=== PATIENT | female | born 1945 | race Caucasian/White ===

== ENCOUNTER 2016-09-25 14:33 | Emergency (ER) | payer MEDICARE, OTHER | END 2016-09-25 18:15 | disposition home or self-care (01) | DX: R60.0 Localized edema (principal); R03.0 Elevated blood-pressure reading, without diagnosis of hypertension; Z86.718 Personal history of other venous thrombosis and embolism; Z79.01 Long term (current) use of anticoagulants; G62.9 Polyneuropathy, unspecified; M19.90 Unspecified osteoarthritis, unspecified site ==

== ENCOUNTER 2017-03-02 19:45 | Outpatient (CLI) | payer MEDICARE, OTHER ==
--- NOTE | 2017-03-03 09:31 | Ultrasound Report ---
RIGHT LEG VENOUS DUPLEX: 03/02/2017 CLINICAL INDICATION: Cellulitis, pain. TECHNIQUE: Real-time sonographic vascular imaging was performed by the network control supervisor through the right lower extremity utilizing both color flow and Doppler spectral analysis. Multiple insurance verification representative stat ic images were saved for review. FINDINGS: A right lower extremity venous sonogram is performed revealing the common femoral, superfic ial femoral, profunda femoris, and popliteal veins to be adequately visualized without intraluminal d efects. There is normal venous compression, augmentation, phasicity, and spontaneity of venous flow. In the calf, the visualized more cephalad portions of posterior tibial and peroneal veins are grossly compressible, without filling defects. Superficial varicosities are incidentally noted in the right calf. IMPRESSION: NO EVIDENCE OF DEEP VENOUS THROMBOSIS. JOB #: [id number] EXT JOB #:[id number]
--- NOTE | 2017-03-03 10:35 | Ultrasound Report ---
RIGHT LEG ARTERIAL DUPLEX: 03/02/2017 CLINICAL INDICATION: Cellulitis, ankle pain. TECHNIQUE: Real-time sonographic vascular imaging was performed by the torpedoman's mate through the lower extremities utilizing both color-flow and Doppler spectral analysis. Multiple guest services representative static images were saved for review. RIGHT SIDE SITE PSV WAVEFORM STEN PSFA 115 biphasic MSFA 125 triphasic DSFA 121 triphasic PFA 57 biphasic POP 57 monophasic KVNG 80 biphasic CAR RENTAL AGENT 54.9 monophasic PER 38 monophasic DPA 47 biphasic TECHNIQUE: Real-time scanning was performed. FINDINGS: Right leg: Waveforms are predominantly biphasic. Not documented above, the LOOP TACKER has a PSV of 147, and a biphasic waveform. There is no evidence of a focal velocity increase to suggest a hemodynamically significant stenosis. IMPRESSION: NO EVIDENCE OF A HEMODYNAMICALLY SIGNIFICANT ARTERIAL STENOSIS IN THE RIGHT LEG. MTDD
== END 2017-03-02 19:46 | disposition home or self-care (01) ==
LOC: DI 19:45
PROVIDERS: ATTEND Physician Assistant Medical
DX: L03.90 Cellulitis, unspecified (principal); M25.571 Pain in right ankle and joints of right foot

== ENCOUNTER 2017-06-23 12:10 | Outpatient (CLI) | payer MEDICARE, OTHER ==
--- NOTE | 2017-06-23 15:42 | XRAY Report ---
DATE OF SERVICE: 06/23/2017 TWO VIEW CHEST: 06/23/2017 COMPARISON: Two view chest of 10/17/2012. INDICATION: Preop exam. TECHNIQUE: Two views of the chest. FINDINGS: Clear lungs. No pneumothorax or pleural effusion. Mediastinum unremarkable. IMPRESSION: NO EVIDENCE OF ACTIVE CARDIOPULMONARY PROCESS. TD: 06/23/2017 16:41 [facility]
== END 2017-06-23 12:11 | disposition home or self-care (01) ==
LOC: DI 12:10
PROVIDERS: ATTEND Obstetrics & Gynecology
DX: Z01.818 Encounter for other preprocedural examination (principal); N81.4 Uterovaginal prolapse, unspecified; N81.6 Rectocele; Z86.711 Personal history of pulmonary embolism; Z86.718 Personal history of other venous thrombosis and embolism
CPT/HCPCS: 71046; 93005

== ENCOUNTER 2017-06-26 13:56 | Outpatient (CLI) | payer MEDICARE, OTHER ==
[2017-06-26 14:35] LABS: BASOPHILS # (AUTO) 0.1 10^3/uL (0.0-0.1); BASOPHILS % (AUTO) 0.9 %; EOSINOPHILS # (AUTO) 0.3 10^3/uL (0.0-0.7); EOSINOPHILS % (AUTO) 5.8 %; HGB - HEMOGLOBIN 10.8 g/dL (12.0-16.0); LYMPHOCYTES # (AUTO) 1.5 10^3/uL (1.5-3.5); LYMPHOCYTES % (AUTO) 26.9 %; MEAN CORPUSCULAR HEMOGLOBIN 28.7 pg (27.0-31.0); MEAN CORPUSCULAR VOLUME 84.4 fL (81.0-99.0); MEAN PLATELET VOLUME 7.3 fL (7.9-10.8); MONOCYTES # (AUTO) 0.6 10^3/uL (0.0-1.0); MONOCYTES % (AUTO) 10.9 %; NEUTROPHILS # (AUTO) 3.1 10^3/uL (1.5-6.6); NEUTROPHILS % (AUTO) 55.5 %; PLT - PLATELET COUNT 240 10^3/uL (130-450); RED BLOOD COUNT 3.78 10^6/uL (4.20-5.40); RED CELL DISTRIBUTION WIDTH 14.1 % (12.0-15.0); WHITE BLOOD COUNT 5.6 x10^3/uL (4.8-10.8)
[2017-06-26 14:54] LABS: ALBUMIN 3.9 g/dL (3.2-5.5); ALBUMIN/GLOBULIN RATIO 1.3 (1.0-2.2); BILIRUBIN,TOTAL 0.6 mg/dL (0.2-1.0); CALCIUM 9.2 mg/dL (8.5-10.3); CREATININE 1.1 mg/dL (0.4-1.0); TOTAL PROTEIN 6.8 g/dL (6.7-8.2)
--- NOTE | 2017-06-27 11:38 | PREOP HISTORY & PHYSICAL ---
DATE OF SERVICE: 06/26/2017 Physician: Grady Paige MD DATE OF ADMISSION: 06/26/2017 PATIENT IDENTIFICATION: Patient is a 71-year-old G1, P1 female who reached menopause at roughly 47 y ears of age. CHIEF COMPLAINT: Cystocele, rectocele. HISTORY OF PRESENT ILLNESS: Patient states in February of 2017, she developed bulging in the perine um following climbing a ladder. She states that the vagina feels as though it is coming out at that par ticular time. She does give a history of having mild stress urinary incontinence as well as doing some recta l splinting. She has been placed with a pessary and then followed this with inflatable. She has had g ood results from this; however, she is interested in having a cure for this problem. She does have a his tory of a DVT following knee surgery. This was a provocative factor. For this, she was placed on Xarelto. Sh e also complains of some venous stasis in the lower extremities and utilizes supportive hose. PAST SURGICAL HISTORY: Positive for an umbilical hernia repair. She also has a history of a knee replacement, carpal tunnel release, tonsillectomy and adenoidectomy, as well as hysteroscopy with dil atation and curettage and resection of cervical polyp. PAST MEDICAL HISTORY: Positive for a DVT following knee surgery. She also has a history of some hypertension, as well as GERD. CURRENT MEDICATIONS: 1. Folic acid. 2. Gabapentin. 3. Micardis HCT. 4. Ranitidine. 5. Topiramate. 6. Viibryd. 7. Vitamin D. 8. Xarelto. HABITS: Patient denies use of tobacco. Drinks maybe 1 alcoholic drink a day. Denies use of any str eet or addictive drugs. SOCIAL HISTORY: Patient is . She is retired at this time. FAMILY HISTORY: Positive for Alzheimer's disease, asthma, stomach cancer, diabetes, depression, hype rtension, as well as pancreatic CA. She denies any history of ovarian or endometrial cancer at this time. PHYSICAL EXAMINATION: VITAL SIGNS: Blood pressure 132/74. BMI 40. Weight 199.8. GENERAL: The patient is a well-developed, well-nourished white female. She is in no acute distress at this time. HEENT: Pupils are equal, round. Extraocular muscles are intact. There is no evidence of any sclera l icterus noted. HEART: Regular rate and rhythm without murmurs. CHEST: Lung pepe are clear without rales or wheezes. ABDOMEN: Shows repair of an umbilical hernia. PELVIC: Shows a grade 3-4 cystocele with also a large rectocele. The cervix descends easily. Inter nal examination was somewhat limited secondary to abdominal thickness; however, the uterus does not palpa te as being enlarged at this time. LOWER EXTREMITIES: Show evidence of some venous stasis in the right lower extremity. IMPRESSION: 1. Symptomatic cystocele. 2. Symptomatic rectocele. 3. Uterine prolapse. 4. Hypertension. 5. History of deep venous thrombosis with provocative cause. PLAN: We will perform laparoscopically-assisted vaginal hysterectomy with anterior and posterior rep air. Risks and benefits have been explained to the patient including those, but not limited to bleeding, i nfection, injury to pelvic organs, which include the uterus, tubes, ovaries, bowel, bladder and ureters. She i s aware of the potential for DVT. She has been told to hold her Xarelto because it is felt that her DVT was from provocative cause. She is aware of the postop adhesion which could cause pain, bowel obstruction, infertility. TD: 06/27/2017 12:37
== END 2017-06-26 13:57 | disposition home or self-care (01) ==
LOC: LAB 13:56
PROVIDERS: ATTEND Obstetrics & Gynecology
DX: N81.4 Uterovaginal prolapse, unspecified (principal); N81.10 Cystocele, unspecified; N81.6 Rectocele
CPT/HCPCS: 36415; 80053; 85025; 86850; 86900; 86901

== ENCOUNTER 2017-06-28 09:46 | Day surgery (SDC) | payer MEDICARE, OTHER ==
--- NOTE | 2017-06-27 11:38 | PREOP HISTORY & PHYSICAL ---
Physician: Grady Paige MD DATE OF PROCEDURE: 06/28/2017 IDENTIFICATION: Patient is a 71-year-old G1, P1 female who reached menopause at roughly 47 years of age. CHIEF COMPLAINT: Cystocele, rectocele. HISTORY OF PRESENT ILLNESS: Patient states in February of 2017, she developed bulging in the perineum following climbing a ladder. She states that the vagina feels as though it is coming out at that particular time. She does give a history of having mild stress urinary incontinence as well as doing some rectal splinting. She has been placed with a pessary and then followed this with inflatable. She has had good results from this; however, she is interested in having a cure for this problem. She does have a history of a DVT following knee surgery. This was a provocative factor. For this, she was placed on Xarelto. She also complains of some venous stasis in the lower extremities and utilizes supportive hose. PAST SURGICAL HISTORY: Positive for an umbilical hernia repair. She also has a history of a knee replacement, carpal tunnel release, tonsillectomy and adenoidectomy, as well as hysteroscopy with dilatation and curettage and resection of cervical polyp. PAST MEDICAL HISTORY: Positive for a DVT following knee surgery. She also has a history of some hypertension, as well as GERD. CURRENT MEDICATIONS 1. Folic acid. 2. Gabapentin. 3. Micardis HCT. 4. Ranitidine. 5. Topiramate. 6. Viibryd. 7. Vitamin D. 8. Xarelto. HABITS: Patient denies use of tobacco. Drinks maybe 1 alcoholic drink a day. Denies use of any street or addictive drugs. SOCIAL HISTORY: Patient is . She is retired at this time. FAMILY HISTORY: Positive for Alzheimer disease, asthma, stomach cancer, diabetes, depression, hypertension, as well as pancreatic CA. She denies any history of ovarian or endometrial cancer at this time. PHYSICAL EXAMINATION VITAL SIGNS: Blood pressure 132/74. BMI 40. Weight 199.8. GENERAL: The patient is a well-developed, well-nourished white female. She is in no acute distress at this time. HEENT: Pupils are equal, round. Extraocular muscles are intact. There is no evidence of any scleral icterus noted. HEART: Regular rate and rhythm without murmurs. CHEST: Lung pepe are clear without rales or wheezes. ABDOMEN: Exam shows repair of an umbilical hernia. PELVIC: Examination shows a grade 3-4 cystocele with also a large rectocele. The cervix descends easily. Internal examination was somewhat limited secondary to abdominal thickness; however, the uterus does not palpate as being enlarged at this time. EXTREMITIES: Lower extremities show evidence of some venous stasis in the right lower extremity. IMPRESSION 1. Symptomatic cystocele. 2. Symptomatic rectocele. 3. Uterine prolapse. 4. Hypertension. 5. History of deep venous thrombosis with provocative cause. PLAN: We will perform laparoscopically-assisted vaginal hysterectomy with anterior and posterior repair. Risks and benefits have been explained to the patient including those, but not limited to bleeding, infection, injury to pelvic organs, which include the uterus, tubes, ovaries, bowel, bladder and ureters. She is aware of the potential for DVT. She has been told to hold her Xarelto because it is felt that her DVT was from provocative cause. She is aware of the postop adhesion which could cause pain, bowel obstruction, infertility. date/acct correction 07/04/17 aleksandra TD: 06/27/2017 12:37 MARIAM
[2017-06-28] MEDS ORDERED: ceFAZolin 2 GM/50 ML 2 GM/50 ML BAG IV ONE (09:58)
[2017-06-28 09:59] VITALS: BP 130/67
[2017-06-28] MEDS ORDERED: LACTATED RINGERS 1,000 ML IV ONE ×3 (10:21→16:15)
[2017-06-28] MEDS ORDERED: BUPIVACAINE 0.25%-EPI 1:200000 PF 30 ML VIAL SUBQ ONE ×3 (13:05)
[2017-06-28] MEDS ORDERED: GLYCOPYRROLATE 1 MG/5 ML VIAL IVP ONE (13:51)
[2017-06-28] MEDS ORDERED: SODIUM CHLORIDE 0.9% 10 ML VIAL IV ONE (13:51)
[2017-06-28] MEDS ORDERED: fentaNYL 100 MCG/2 ML VIAL IVP ONE (13:51)
[2017-06-28] MEDS ORDERED: MIDAZOLAM 2 MG/2 ML VIAL IVP ONE (13:51)
[2017-06-28] MEDS ORDERED: ROCURONIUM 50 MG/5 ML VIAL IVP ONE (13:51)
[2017-06-28] MEDS ORDERED: NEOSTIGMINE 1 MG/1 ML 10 ML MDV IVP ONE (13:51)
[2017-06-28] MEDS ORDERED: ONDANSETRON 4 MG/2 ML VIAL IVP ONE (13:51)
[2017-06-28] MEDS ORDERED: PROPOFOL 200 MG/20 ML VIAL IVP ONE (13:51)
[2017-06-28] MEDS ORDERED: ACETAMINOPHEN 1,000 MG/100 ML 100 ML IV ONE (13:51)
[2017-06-28] MEDS ORDERED: ePHEDrine 50 MG/ML VIAL IVP ONE (13:51)
[2017-06-28] MEDS ORDERED: DEXAMETHASONE 4 MG/ML VIAL IVP ONE (13:51)
[2017-06-28] MEDS ORDERED: ESTROGENS, CONJUGATED CREAM 30 GM TUBE VG ONE (14:54)
[2017-06-28] MEDS ORDERED: METHYLENE BLUE 0.5% 50 MG/10 ML AMPULE IVP ONE (15:07)
[2017-06-28] MEDS: HYDROmorphone 1 MG/ML SYRINGE ONE ×3 (15:55→16:27)
[2017-06-28] MEDS ORDERED: ONDANSETRON 4 MG/2 ML VIAL ONE (15:57)
[2017-06-28] MEDS ORDERED: KETOROLAC 15 MG/ML VIAL ONE (15:57)
[2017-06-28] MEDS ORDERED: SODIUM CHLORIDE FLUSH 0.9% 10 ML SYRINGE IVP ONE (15:58)
[2017-06-28] MEDS ORDERED: fentaNYL 100 MCG/2 ML VIAL ONE (16:41)
[2017-06-28] MEDS ORDERED: ONDANSETRON 4 MG/2 ML VIAL IVP PRN (17:26)
[2017-06-28] MEDS: oxyCOD/ACETAMIN 5 MG/325 MG TABLET PO PRN ×2 (17:45→21:26)
[2017-06-28] MEDS: LACTATED RINGERS 1,000 ML IV SCH (23:45)
[2017-06-29] MEDS: oxyCOD/ACETAMIN 5 MG/325 MG TABLET PO PRN ×4 (01:42→16:09)
[2017-06-29] MEDS: LACTATED RINGERS 1,000 ML IV SCH (12:12)
== END 2017-06-29 17:10 | disposition home or self-care (01) ==
LOC: SDS 09:46 → OBS 15:40 → SDS 06-29 17:10
PROVIDERS: ATTEND Obstetrics & Gynecology
PROC: 0UT7FZZ Resection of Bilateral Fallopian Tubes, Via Natural or Artificial Opening With Percutaneous Endoscopic Assistance (ICD-10-PCS; 2017-06-28)
PROC: 0JQC0ZZ Repair Pelvic Region Subcutaneous Tissue and Fascia, Open Approach (ICD-10-PCS; 2017-06-28)
PROC: 0TQD7ZZ Repair Urethra, Via Natural or Artificial Opening (ICD-10-PCS; 2017-06-28)
PROC: 0UT9FZZ Resection of Uterus, Via Natural or Artificial Opening With Percutaneous Endoscopic Assistance (ICD-10-PCS; principal; 2017-06-28 12:00)
PROC: 0UT2FZZ Resection of Bilateral Ovaries, Via Natural or Artificial Opening With Percutaneous Endoscopic Assistance (ICD-10-PCS; 2017-06-28 12:00)
DX: N81.3 Complete uterovaginal prolapse (principal); N83.8 Other noninflammatory disorders of ovary, fallopian tube and broad ligament; Z86.718 Personal history of other venous thrombosis and embolism; Z79.01 Long term (current) use of anticoagulants; I10 Essential (primary) hypertension
CPT/HCPCS: 57260; 58552; A9270; J0131; J0690; J1170; J7120

== ENCOUNTER 2017-07-01 03:11 | Emergency (ER) | payer MEDICARE, OTHER ==
--- NOTE | 2017-07-01 03:37 | ED Physician Documentation ---
History of Present Illness - Stated complaint Stated Complaint: LEG SWELLING/POST OP - Chief complaint Chief Complaint: Ext Problem - History obtained from History obtained from: Patient - History of Present Illness Timing: Today - Additonal information Additional information: 71-year-old female has had hysterectomy done here next number of days ago and this morning she has developed fullness in her left calf and pain. She has had DVT postoperatively previously she is concerned about DVT again. She was on Xarelto prior to surgery she stopped it for the surgery and she took her first dose again this evening. She has had some LE erythema that has been present for about 9 months and this is improved dramatically from prior. She denies chest pain or shortness of breath. Review of Systems Constitutional: denies: Fever, Chills, Myalgias, Fatigue Eyes: denies: Decreased vision Ears: denies: Ear pain Nose: denies: Congestion Throat: denies: Sore throat Cardiac: denies: Chest pain / pressure, Palpitations Respiratory: denies: Dyspnea, Cough GI: denies: Abdominal Pain, Nausea, Vomiting : denies: Dysuria, Frequency Skin: denies: Rash Musculoskeletal: reports: Extremity pain, Extremity swelling. denies: Neck pain , Back pain Neurologic: denies: Generalized weakness, Focal weakness, Numbness PD PAST MEDICAL HISTORY - Past Medical History Past Medical History: Yes Cardiovascular: None, Hypertension, Deep vein thrombosis Respiratory: CPAP use Neuro: Peripheral neuropathy Endocrine/Autoimmune: None GI: None : Incontinence HEENT: None Psych: Depression Musculoskeletal: Osteoarthritis, Chronic back pain, Other Derm: None - Past Surgical History Past Surgical History: Yes General: Colonoscopy, Other Ortho: Knee replacement, Arthroscopic surgery /ACCOUNTS COLLECTOR: Tubal ligation, Hysterectomy Cardiovascular: CABG Neuro: Craniotomy HEENT: Tonsil/Adenoidectomy - Present Medications Home Medications: Ambulatory Orders Medication Instructions Recorded Confirmed Albuterol Sulfate [Proair Hfa] 1 - 2 puffs INH ONCE PRN 09/08/15 07/01/17 Folic Acid 0.8 mg PO DAILY 09/08/15 07/01/17 Gabapentin 1 - 2 tab PO BID 09/08/15 07/01/17 Rivaroxaban [Xarelto] 20 mg PO DAILY 09/08/15 07/01/17 Telmisartan/Hydrochlorothiazid 1 tab PO QDBREAKFAST 09/08/15 07/01/17 [Micardis Hct 80-25 mg Tablet] Topiramate 2 tab PO QPM 09/08/15 07/01/17 Vilazodone HCl [Viibryd] 40 mg PO DAILY 09/08/15 07/01/17 Vitamin D3/Folic Acid [Ortho D 1 each PO DAILY 05/17/16 07/01/17 3,775 Unit-1 mg Cap] Cinnamon Bark [Cinnamon] 500 mg PO DAILY 09/25/16 07/01/17 raNITIdine [Zantac] 150 mg PO DAILY 09/25/16 07/01/17 Rivaroxaban [Xarelto] 15 mg PO BID #42 tablet 07/01/17 oxyCODONE/ACET 5/325 Prepack 4 1 tab ORAL Q4HR 07/01/17 07/01/17 [PERCOCET 5 MG/325 MG Prepack 4] - Allergies Allergies/Adverse Reactions: Allergies Allergy/AdvReac Type Severity Reaction Status Date / Time codeine Allergy Unknown Verified 07/01/17 03:23 - Social History Does the pt smoke?: No Smoking Status: Never smoker Does the pt drink ETOH?: No Does the pt have substance abuse?: No - Immunizations Immunizations are current?: Yes PD ED PE NORMAL - Vitals Vital signs reviewed: Yes (normal ) - General General: Alert and oriented X 3, No acute distress, Well developed/nourished - HEENT HEENT: Atraumatic, PERRL, EOMI - Neck Neck: Supple, no meningeal sign - Cardiac Cardiac: RRR, No murmur - Respiratory Respiratory: No respiratory distress, Clear bilaterally - Abdomen Abdomen: Soft, Non tender - Derm Derm: Normal color, Warm and dry, No rash - Extremities Extremities: Other (There is firm swelling to the posterior calf. There is a well healed scar to the right knee and there is some post inflamitory hyperpigmentation to the calf about half way up the calf. ) - Neuro Neuro: No motor deficit, No sensory deficit Eye Opening: Spontaneous Motor: Obeys Commands Verbal: Oriented GCS Score: 15 - Psych Psych: Normal mood, Normal affect Results - Vitals Vitals: Vital Signs - 24 hr 07/01/17 07/01/17 03:16 06:17 Temperature 36.9 C 36.7 C Heart Rate 77 85 Respiratory 18 16 Rate Blood Pressure 128/77 114/66 O2 Saturation 99 96 Oxygen O2 Source Room air - Rads (name of study) duplex viens right Radiology: Prelim report reviewed (Impression: 1. Deep venous thrombosis in the popliteal vein. 2. Superficial venous thrombosis in the lesser saphenous vein.), EMP read indepedently, See rad report PD MEDICAL DECISION MAKING - ED course Complexity details: reviewed old records, reviewed results, re-evaluated patient , considered differential, d/w patient ED course: 71-year-old female with a history of prior DVT has had another surgical procedure and has DVT in the calf today. She has restarted her Xarelto last night and we will change her regimen to 15 mg twice daily for 3 weeks is recommended. She will then be back onto her 20 mg per day. There was a lymph node noted in the upper thigh that is likely unrelated and of insignificant consequence. Departure - Departure Disposition: 01 Home, Self Care Clinical Impression: DVT (deep venous thrombosis) Qualifiers: DVT location: lower extremity Affected thrombotic vein of extremity: popliteal Chronicity: acute Laterality: right Qualified Code(s): I82.431 - Acute embolism and thrombosis of right popliteal vein Condition: Stable Instructions: ED DVT Follow-Up: Beronica Alexandra PA-C [Primary Care Provider] - Grady Paige MD [Provider Admit Priv/Credential] - Prescriptions: Rivaroxaban [Xarelto] 15 mg PO BID #42 tablet
--- NOTE | 2017-07-01 06:07 | Ultrasound Report ---
EXAM: RIGHT LOWER EXTREMITY VENOUS ULTRASOUND EXAM DATE: 07/01/2017 05:37 AM. CLINICAL HISTORY: Calf pain fullness s/p surgery. COMPARISON: 03/02/2017. TECHNIQUE: Real-time sonographic vascular imaging was performed by the recycling worker through the lower extremity utilizing both color-flow and Doppler spectral analysis. Multiple visitor services representative static dane ges were saved for review. FINDINGS: Common Femoral Vein (CFV): Normal. CFV-GSV Junction: Normal. Profunda Femoral Vein (PFV): Normal. Femoral Vein (FV) Prox: Normal. Femoral Vein (FV) Mid: Normal. Femoral Vein (FV) Dist: Normal. Popliteal Vein: Thrombus. Posterior Tibial Veins: Suboptimally seen due to swelling. Peroneal Veins: Suboptimally seen due to swelling. Other: Superficial venous thrombosis in the lesser saphenous vein. IMPRESSION: 1. Deep venous thrombosis in the popliteal vein. 2. Superficial venous thrombosis in the lesser saphenous vein. [facility] The above critical findings were discussed with Dr. Dubose by Dr. Chinmay Quinones at 06:05 hrs on . Referring Provider Line: [phone] SITE ID: [id number]
[2017-07-01 06:19] VITALS: BP 114/66
== END 2017-07-01 06:21 | disposition home or self-care (01) ==
LOC: ED 03:11
DX: I82.431 Acute embolism and thrombosis of right popliteal vein (principal); I82.4Z1 Acute embolism and thrombosis of unspecified deep veins of right distal lower extremity; Z98.890 Other specified postprocedural states; I10 Essential (primary) hypertension; Z86.718 Personal history of other venous thrombosis and embolism; Z79.01 Long term (current) use of anticoagulants; G62.9 Polyneuropathy, unspecified; I25.10 Atherosclerotic heart disease of native coronary artery without angina pectoris; Z95.1 Presence of aortocoronary bypass graft; M19.90 Unspecified osteoarthritis, unspecified site
CPT/HCPCS: 99283; 99284

== ENCOUNTER 2017-10-27 15:07 | Emergency (ER) | payer MEDICARE, OTHER ==
[2017-10-27 15:14] VITALS: BP 132/67
--- NOTE | 2017-10-27 16:04 | ED Physician Documentation ---
History of Present Illness - Stated complaint Stated Complaint: R LEG PX - Chief complaint Chief Complaint: Ext Problem - Additonal information Additional information: hx from pt 72 f hx DVT several months ago on xarelto seeing derm for erythema to RLE - does not recall name of the skin condition - on exam today the drywall taper helper notes hard firm superficial veins to medial lower RLE and was concerned about a new DVT so sent pt to ER for doppler no CP or SOA Review of Systems Constitutional: denies: Fever, Chills Cardiac: denies: Chest pain / pressure Respiratory: denies: Dyspnea Musculoskeletal: reports: Extremity swelling Endocrine: reports: Easy bruising / bleeding Immunocompromised: denies: Immunocompromised PD PAST MEDICAL HISTORY - Past Medical History Cardiovascular: None, Hypertension, Deep vein thrombosis Respiratory: CPAP use Endocrine/Autoimmune: None GI: None : Incontinence HEENT: None Psych: Depression Musculoskeletal: Osteoarthritis, Chronic back pain, Other Derm: None - Past Surgical History Past Surgical History: Yes General: Colonoscopy, Other Ortho: Knee replacement, Arthroscopic surgery /[employer] 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: Tubal ligation, Hysterectomy Cardiovascular: CABG Neuro: Craniotomy HEENT: Tonsil/Adenoidectomy - Present Medications Home Medications: Ambulatory Orders Medication Instructions Recorded Confirmed Folic Acid 0.8 mg PO DAILY 09/08/15 07/01/17 Gabapentin 1 - 2 tab PO BID 09/08/15 07/01/17 Rivaroxaban [Xarelto] 20 mg PO DAILY 09/08/15 07/01/17 Telmisartan/Hydrochlorothiazid 1 tab PO QDBREAKFAST 09/08/15 07/01/17 [Micardis Hct 80-25 mg Tablet] Topiramate 2 tab PO QPM 09/08/15 07/01/17 Vilazodone HCl [Viibryd] 40 mg PO DAILY 09/08/15 07/01/17 Vitamin D3/Folic Acid [Ortho D 1 each PO DAILY 05/17/16 07/01/17 3,775 Unit-1 mg Cap] Cinnamon Bark [Cinnamon] 500 mg PO DAILY 09/25/16 07/01/17 raNITIdine [Zantac] 150 mg PO DAILY 09/25/16 07/01/17 Rivaroxaban [Xarelto] 15 mg PO BID #42 tablet 07/01/17 Loratadine [Claritin] 1 cap PO DAILY 10/27/17 10/27/17 - Allergies Allergies/Adverse Reactions: Allergies Allergy/AdvReac Type Severity Reaction Status Date / Time codeine Allergy Unknown Verified 10/27/17 15:14 - Social History Does the pt smoke?: No Smoking Status: Never smoker Does the pt drink ETOH?: No Does the pt have substance abuse?: No - Immunizations Immunizations are current?: Yes PD ED PE NORMAL - Vitals Vital signs reviewed: Yes - Cardiac Cardiac: RRR - Respiratory Respiratory: No respiratory distress, Clear bilaterally - Extremities Extremities: Other (RLE firm indurated superficial veins s erythema or warmth medial LE above ankle, MSV intact, no popliteal cord, no sig edema) Results - Vitals Vitals: Vital Signs - 24 hr 10/27/17 10/27/17 15:11 15:28 Temperature 36.7 C 36 C L Heart Rate 82 Respiratory 16 Rate Blood Pressure 132/67 H O2 Saturation 98 Oxygen O2 Source Room air - Rads (name of study) doppler Radiology: See rad report (no DVT or sup thrombophelbitis) Departure - Departure Disposition: 01 Home, Self Care Clinical Impression: History of DVT (deep vein thrombosis) Condition: Good Comments: The ultrasound was fine - no new clot Recommend warm compresses to the area and follow up with your drywall taper helper as planned
--- NOTE | 2017-10-27 17:31 | Ultrasound Preliminary Report ---
Exam: US DUPLEX EXT VEINS RIGHT IMPRESSION: No recurrent nor residual deep venous thrombosis nor superficial thrombophlebitis. [facility] SITE ID: [id number]
--- NOTE | 2017-10-27 17:39 | Ultrasound Report ---
EXAM: RIGHT LOWER EXTREMITY VENOUS ULTRASOUND EXAM DATE: 10/27/2017 05:06 PM. CLINICAL HISTORY: Follow up right leg deep venous thrombosis. Medial right calf edema and erythema. COMPARISON: 07/01/2017. TECHNIQUE: Real-time sonographic vascular imaging was performed by the specimen technician through the lower extremity utilizing both color-flow and Doppler spectral analysis. Multiple retail customer service representative static dane ges were saved for review. FINDINGS: Common Femoral Vein (CFV): Normal. CFV-GSV Junction: Normal. Profunda Femoral Vein (PFV): Normal. Femoral Vein (FV) Prox: Normal. Femoral Vein (FV) Mid: Normal. Femoral Vein (FV) Dist: Normal. Popliteal Vein: Normal. Interval resolution of thrombus. Posterior Tibial Veins: Normal. Peroneal Veins: Normal. Contralateral Side CFV: Normal. Other: Focused scans in the area of concern medial mid calf are normal. No superficial thrombophlebitis evident. IMPRESSION: No recurrent nor residual deep venous thrombosis nor superficial thrombophlebitis. [facility] Referring Provider Line: [phone] SITE ID: [id number]
== END 2017-10-27 18:04 | disposition home or self-care (01) ==
LOC: ED 15:07
DX: M79.604 Pain in right leg (principal); Z86.718 Personal history of other venous thrombosis and embolism; Z79.01 Long term (current) use of anticoagulants; I10 Essential (primary) hypertension; M19.90 Unspecified osteoarthritis, unspecified site; I25.10 Atherosclerotic heart disease of native coronary artery without angina pectoris; Z95.1 Presence of aortocoronary bypass graft
CPT/HCPCS: 99282

== ENCOUNTER 2018-04-17 21:56 | Outpatient (CLI) | payer MEDICARE, OTHER ==
--- NOTE | 2018-04-17 23:32 | Ultrasound Report ---
Reason: LEG EDEMA,RIGHT Procedure Date: 04/17/2018 Accession Number: [id number] / [id number] Procedure: US - Duplex Ext Veins Right CPT Code: FULL RESULT: EXAM: RIGHT LOWER EXTREMITY VENOUS ULTRASOUND EXAM DATE: 04/17/2018 10:50 PM. CLINICAL HISTORY: LEG Edema, right. COMPARISON: DUPLEX EXT VEINS RIGHT 10/27/2017 4:30 PM. TECHNIQUE: Real-time sonographic vascular imaging was performed by the slide fastener repairer through the lower extremity utilizing both color-flow and Doppler spectral analysis. Multiple communications representative static images were saved for review. FINDINGS: Common Femoral Vein (CFV): Normal. CFV-GSV Junction: Normal. Profunda Femoral Vein (PFV): Normal. Femoral Vein (FV) Prox: Normal. Femoral Vein (FV) Mid: Normal. Femoral Vein (FV) Dist: Normal. Popliteal Vein: Normal. Posterior Tibial Veins: Grossly unremarkable where seen, not well evaluated due to swelling and body habitus. Peroneal Veins: Grossly unremarkable where seen, not well evaluated due to swelling and body habitus. Other: None. IMPRESSION: No evidence for right leg deep venous thrombosis. [facility]
== END 2018-04-17 21:57 | disposition home or self-care (01) ==
LOC: DI 21:56
PROVIDERS: ATTEND Physician Assistant
DX: R60.0 Localized edema (principal)

== ENCOUNTER 2018-06-20 21:01 | Outpatient (CLI) | payer MEDICARE, OTHER ==
--- NOTE | 2018-06-20 21:36 | Ultrasound Report ---
Reason: NECK SWELLING Procedure Date: 06/20/2018 Accession Number: [id number] / [id number] Procedure: US - Head or Neck Soft Tissue CPT Code: FULL RESULT: EXAM: THYROID ULTRASOUND EXAM DATE: 06/20/2018 09:22 PM. CLINICAL HISTORY: NECK SWELLING. COMPARISON: None. TECHNIQUE: Real time sonographic imaging of the thyroid was performed by the railroad signal operator. Multiple client service representative static images were saved for review. FINDINGS: THYROID GLAND: Right Lobe: 3.2 x 1.5 x 1 cm, volume 2.5 cc. Normal background echotexture. Right Lobe Nodules: None. Left Lobe: 3.1 x 1.3 x 0.9 cm, volume 1.9 cc. Normal background echotexture. Left Lobe Nodules: None. Isthmus: 0.3 cm AP. Isthmic Nodules: None. LYMPH NODES: No adenopathy demonstrated in the central or lateral compartment. OTHER: None. IMPRESSION: Unremarkable thyroid ultrasound study. Management recommendations are based on 2015 [place] [employer] Management Guidelines for Adult Patients with Thyroid Nodules and Differentiated Thyroid Cancer. [facility]
== END 2018-06-20 21:02 | disposition home or self-care (01) ==
LOC: DI 21:01
PROVIDERS: ATTEND Family Medicine
DX: R22.1 Localized swelling, mass and lump, neck (principal)
CPT/HCPCS: 76536

== ENCOUNTER 2018-08-28 09:58 | Outpatient (CLI) | payer MEDICARE, OTHER ==
--- NOTE | 2018-08-28 12:13 | XRAY Report ---
Reason: FOOT PAIN, RIGHT Procedure Date: 08/28/2018 Accession Number: [id number] / [id number] Procedure: WCP - Foot 2 View RT CPT Code: FULL RESULT: EXAM: RIGHT FOOT RADIOGRAPHY EXAM DATE: 08/28/2018 10:12 AM. CLINICAL HISTORY: Foot pain, right. COMPARISON: None. TECHNIQUE: 3 views. FINDINGS: Bones: Normal. No fractures or bone lesions. Joints: Normal. No subluxations. Soft Tissues: Normal. No soft tissue swelling. IMPRESSION: Normal foot radiography. [facility]
== END 2018-08-28 09:59 | disposition home or self-care (01) ==
LOC: DI.WCP 09:58
PROVIDERS: ATTEND Family Medicine
DX: M79.671 Pain in right foot (principal)

== ENCOUNTER 2018-09-12 13:37 | Outpatient (CLI) | payer MEDICARE, OTHER ==
--- NOTE | 2018-09-12 15:47 | XRAY Report ---
Reason: ELBOW PAIN Procedure Date: 09/12/2018 Accession Number: [id number] / [id number] Procedure: WCP - Elbow 2 View LT CPT Code: FULL RESULT: EXAM: LEFT ELBOW RADIOGRAPHY EXAM DATE: 09/12/2018 01:50 PM. CLINICAL HISTORY: Elbow pain. COMPARISON: None. TECHNIQUE: 2 views. FINDINGS: Bones: Well-rounded ossific density along the lateral epicondyle, possibly remote trauma. No fractures or bone lesions. Joints: Normal. No effusion. No subluxation. Soft Tissues: Normal. No soft tissue swelling. IMPRESSION: No acute fracture or dislocation. [facility]
== END 2018-09-12 13:38 | disposition home or self-care (01) ==
LOC: DI.WCP 13:37
PROVIDERS: ATTEND Family Medicine
DX: M25.522 Pain in left elbow (principal)

== ENCOUNTER 2018-09-25 14:35 | Emergency (ER) | payer MEDICARE, OTHER ==
--- NOTE | 2018-09-25 14:52 | ED Physician Documentation ---
PD HPI NVD - Stated complaint Stated Complaint: DEHYDRATED - Chief complaint Chief Complaint: Abd Pain - History obtained from History obtained from: Patient - History of Present Illness Timing - onset: How many days ago (Onset 2-1/2 days ago abruptly of nausea and vomiting multiple times associated with some loose stool. She did not have any consistent abdominal pain. She states she is little bit sore in the upper abdomen with movement and that was after the onset of the vomiting. She did not have any spontaneous vomiting since yesterday but is still nauseous whenever she tries to even drink fluids. Her at home is not sick.) Timing - duration: Days (2 2) Timing - details: Abrupt onset, Still present Associated symptoms: Abdominal pain (upper on both sides), Dizzy (lightheaded). No: Fever, Hematemesis, Hematochezia, Near syncope / syncope Contributing factors: Sick contact, Anticoagulated Similar symptoms before: Has not had sx before Recently seen: Not recently seen Review of Systems Constitutional: reports: Myalgias. denies: Fever Nose: denies: Rhinorrhea / runny nose, Congestion Throat: denies: Sore throat Respiratory: denies: Cough GI: reports: Abdominal Pain, Nausea, Vomiting, Diarrhea. denies: Abdominal Swelling, Constipation : denies: Dysuria, Frequency Neurologic: reports: Generalized weakness. denies: Focal weakness, Numbness PD PAST MEDICAL HISTORY - Past Medical History Cardiovascular: None, Hypertension, Deep vein thrombosis Respiratory: CPAP use Endocrine/Autoimmune: None GI: None : Incontinence HEENT: None Psych: Depression Musculoskeletal: Osteoarthritis, Chronic back pain, Other Derm: None - Past Surgical History Past Surgical History: Yes General: Colonoscopy, Other Ortho: Knee replacement, Arthroscopic surgery /PLUSH FINISHER: Tubal ligation, Hysterectomy Cardiovascular: CABG Neuro: Craniotomy HEENT: Tonsil/Adenoidectomy - Present Medications Home Medications: Ambulatory Orders Medication Instructions Recorded Confirmed Folic Acid 0.8 mg PO DAILY 09/08/15 07/01/17 Gabapentin 1 - 2 tab PO BID 09/08/15 07/01/17 Rivaroxaban [Xarelto] 20 mg PO DAILY 09/08/15 07/01/17 Telmisartan/Hydrochlorothiazid 1 tab PO QDBREAKFAST 09/08/15 07/01/17 [Micardis Hct 80-25 mg Tablet] Topiramate 2 tab PO QPM 09/08/15 07/01/17 Vilazodone HCl [Viibryd] 40 mg PO DAILY 09/08/15 07/01/17 Vitamin D3/Folic Acid [Ortho D 1 each PO DAILY 05/17/16 07/01/17 3,775 Unit-1 mg Cap] Cinnamon Bark [Cinnamon] 500 mg PO DAILY 09/25/16 07/01/17 raNITIdine [Zantac] 150 mg PO DAILY 09/25/16 07/01/17 Rivaroxaban [Xarelto] 15 mg PO BID #42 tablet 07/01/17 Loratadine [Claritin] 1 cap PO DAILY 10/27/17 10/27/17 Diphenoxylate/Atropine [Lomotil] 1 each PO QID PRN #12 tablet 09/25/18 Ondansetron Odt [Zofran] 4 mg TL Q6H PRN #15 tablet 09/25/18 Potassium Chloride 10 meq PO DAILY #10 tablet.er 09/25/18 - Allergies Allergies/Adverse Reactions: Allergies Allergy/AdvReac Type Severity Reaction Status Date / Time codeine Allergy Unknown Verified 09/25/18 14:48 - Social History Does the pt smoke?: No Smoking Status: Never smoker Does the pt drink ETOH?: No Does the pt have substance abuse?: No - Immunizations Immunizations are current?: Yes PD ED PE NORMAL - Vitals Vital signs reviewed: Yes - General General: Alert and oriented X 3, Well developed/nourished - HEENT HEENT: Pharynx benign. No: Moist mucous membranes - Neck Neck: Supple, no meningeal sign, No adenopathy - Cardiac Cardiac: RRR, No murmur - Respiratory Respiratory: Clear bilaterally - Abdomen Abdomen: Soft, Non tender, Non distended. No: Normal bowel sounds (diminished) - Back Back: No CVA TTP - Derm Derm: Normal color, Warm and dry Results - Vitals Vitals: Vital Signs - 24 hr 09/25/18 09/25/18 14:44 16:04 Temperature 36.6 C Heart Rate 77 79 Respiratory 18 16 Rate Blood Pressure 150/90 H 139/68 H O2 Saturation 100 96 Oxygen O2 Source Room air - Labs Labs: Laboratory Tests 09/25/18 09/25/18 15:15 15:15 WBC 5.1 RBC 4.22 Hgb 11.4 L Hct 34.7 L MCV 82.2 MCH 27.1 MCHC 32.9 RDW 15.2 H Plt Count 230 MPV 7.9 Neut # (Auto) 3.8 Lymph # (Auto) 0.8 L [place] # (Auto) 0.4 Eos # (Auto) 0.1 Baso # (Auto) 0.0 Absolute Nucleated RBC 0.00 Nucleated RBC % 0.0 Sodium 132 L Potassium 2.8 L Chloride 98 L Carbon Dioxide 22 Anion Gap 12.0 BUN 21 H Creatinine 1.0 Estimated GFR (MDRD) 55 L Glucose 107 H Calcium 8.5 Magnesium 1.9 Total Bilirubin 0.6 AST 26 ALT 22 Alkaline Phosphatase 55 Total Protein 7.2 Albumin 3.7 Globulin 3.5 Albumin/Globulin Ratio 1.1 Lipase 27 PD MEDICAL DECISION MAKING - ED course Complexity details: considered differential (Sounds likely viral gastroenteritis versus food related. She does not have any persistent pain and there is no tenderness on abdominal exam so I do not feel she needs evaluation for focal infection such as appendix or gallbladder. We will give her IV fluids and antiemetics and H2 blockers. I think she needs rehydration and some medicatio n.), d/w family Departure - Departure Disposition: 01 Home, Self Care Clinical Impression: Dehydration, Hypokalemia, Nausea vomiting and diarrhea Condition: Stable Record reviewed to determine appropriate education?: Yes Instructions: Potassium Supplements, ED Nausea Vomiting Follow-Up: Rafael Marrero MD [Primary Care Provider] - Prescriptions: Diphenoxylate/Atropine [Lomotil] 1 each PO QID PRN #12 tablet PRN Reason: Diarrhea Ondansetron Odt [Zofran] 4 mg TL Q6H PRN #15 tablet PRN Reason: Nausea / Vomiting Potassium Chloride 10 meq PO DAILY #10 tablet.er Comments: I presume this was a viral stomach flu or potentially food related. Typically these just last for the couple of days and you may have prolonged symptoms due to the dehydration and low potassium. Hopefully will feel improved with the fluids and medicines here. Continue with ondansetron if needed for nausea and Lomotil just if needed for diarrhea. Small frequent fluids and bland food initially. Tylenol if needed for pains. Starting tomorrow or so if you are feeling better, add a potassium supplement daily for a week. Recheck if not improved well over the next day or two. Return if you have persistent symptoms, repetitive vomiting, areas of pain in the belly or other symptoms. Discharge Date/Time: 09/25/18 17:06
[2018-09-25] MEDS ORDERED: KETOROLAC 15 MG/ML VIAL IVP STA (15:03)
[2018-09-25] MEDS ORDERED: FAMOTIDINE 20 MG/2 ML VIAL IVP STA (15:03)
[2018-09-25] MEDS ORDERED: SODIUM CHLORIDE 0.9% 1,000 ML IV ONE (15:03)
[2018-09-25] MEDS ORDERED: ONDANSETRON 4 MG/2 ML VIAL IVP STA (15:03)
[2018-09-25 15:29] LABS: BASOPHILS % (AUTO) 0.2 %; EOSINOPHILS # (AUTO) 0.1 10^3/uL (0.0-0.7); HGB - HEMOGLOBIN 11.4 g/dL (12.0-16.0); LYMPHOCYTES # (AUTO) 0.8 10^3/uL (1.5-3.5); LYMPHOCYTES % (AUTO) 15.3 %; MEAN CORPUSCULAR HEMOGLOBIN 27.1 pg (27.0-31.0); MEAN CORPUSCULAR HGB CONC 32.9 g/dL (32.0-36.0); MEAN CORPUSCULAR VOLUME 82.2 fL (81.0-99.0); MEAN PLATELET VOLUME 7.9 fL (7.9-10.8); MONOCYTES # (AUTO) 0.4 10^3/uL (0.0-1.0); MONOCYTES % (AUTO) 8.5 %; NEUTROPHILS # (AUTO) 3.8 10^3/uL (1.5-6.6); PLT - PLATELET COUNT 230 10^3/uL (130-450); RED BLOOD COUNT 4.22 10^6/uL (4.20-5.40); RED CELL DISTRIBUTION WIDTH 15.2 % (12.0-15.0); WHITE BLOOD COUNT 5.1 x10^3/uL (4.8-10.8)
[2018-09-25 15:38] LABS: ALBUMIN 3.7 g/dL (3.2-5.5); ALBUMIN/GLOBULIN RATIO 1.1 (1.0-2.2); BILIRUBIN,TOTAL 0.6 mg/dL (0.2-1.0); CALCIUM 8.5 mg/dL (8.5-10.3); MAGNESIUM 1.9 mg/dL (1.7-2.8); TOTAL PROTEIN 7.2 g/dL (6.7-8.2)
[2018-09-25] MEDS ORDERED: POTASSIUM CHLOR 10 MEQ/100 ML 10 MEQ/100 ML BAG IV ONE (15:42)
[2018-09-25] MEDS ORDERED: POTASSIUM BICARB 25 MEQ TABLET PO STA (15:42)
[2018-09-25 16:05] VITALS: BP 139/68
== END 2018-09-25 17:06 | disposition home or self-care (01) ==
LOC: ED 14:35
DX: E86.0 Dehydration (principal); E87.6 Hypokalemia; R11.2 Nausea with vomiting, unspecified; R19.7 Diarrhea, unspecified; I10 Essential (primary) hypertension
CPT/HCPCS: 36415; 80053; 83690; 83735; 85025; 96361; 96365; 96375; 99283; 99284; A9270

== ENCOUNTER 2019-04-10 11:27 | Emergency (ER) | payer MEDICARE, OTHER ==
--- NOTE | 2019-04-10 12:11 | ED Physician Documentation ---
PD HPI LOWER EXT INJURY - Stated complaint Stated Complaint: R LEG PX/DVT RULE OUT - Chief complaint Chief Complaint: Ext Problem - History obtained from History obtained from: Patient - History of Present Illness PD HPI LOW EXT INJURY LOCATION: Right (73-year-old woman with history of DVTs on Xarelto for same. About a week ago her physical therapist who sees her for venous stasis noted a painful lump on the distal right calf. She tried to see her PCP for it but was referred here for an ultrasound as they had no openings. She has no chest pain or trouble breathing.) Review of Systems Constitutional: reports: Reviewed and negative Cardiac: reports: Reviewed and negative Respiratory: reports: Reviewed and negative PD PAST MEDICAL HISTORY - Past Medical History Cardiovascular: None, Hypertension, Deep vein thrombosis Respiratory: CPAP use Endocrine/Autoimmune: None GI: None : Incontinence HEENT: None Psych: Depression Musculoskeletal: Osteoarthritis, Chronic back pain, Other Derm: None - Past Surgical History Past Surgical History: Yes General: Colonoscopy, Other Ortho: Knee replacement, Arthroscopic surgery /LICENSE INSPECTOR: Tubal ligation, Hysterectomy Cardiovascular: CABG Neuro: Craniotomy HEENT: Tonsil/Adenoidectomy - Present Medications Home Medications: Ambulatory Orders Medication Instructions Recorded Confirmed Folic Acid 0.8 mg PO DAILY 09/08/15 07/01/17 Gabapentin 1 - 2 tab PO BID 09/08/15 07/01/17 Rivaroxaban [Xarelto] 20 mg PO DAILY 09/08/15 07/01/17 Telmisartan/Hydrochlorothiazid 1 tab PO QDBREAKFAST 09/08/15 07/01/17 [Micardis Hct 80-25 mg Tablet] Topiramate 2 tab PO QPM 09/08/15 07/01/17 Vilazodone HCl [Viibryd] 40 mg PO DAILY 09/08/15 07/01/17 Vitamin D3/Folic Acid [Ortho D 1 each PO DAILY 05/17/16 07/01/17 3,775 Unit-1 mg Cap] Cinnamon Bark [Cinnamon] 500 mg PO DAILY 09/25/16 07/01/17 raNITIdine [Zantac] 150 mg PO DAILY 09/25/16 07/01/17 Rivaroxaban [Xarelto] 15 mg PO BID #42 tablet 07/01/17 Loratadine [Claritin] 1 cap PO DAILY 10/27/17 10/27/17 Diphenoxylate/Atropine [Lomotil] 1 each PO QID PRN #12 tablet 09/25/18 Ondansetron Odt [Zofran] 4 mg TL Q6H PRN #15 tablet 09/25/18 Potassium Chloride 10 meq PO DAILY #10 tablet.er 09/25/18 - Allergies Allergies/Adverse Reactions: Allergies Allergy/AdvReac Type Severity Reaction Status Date / Time codeine Allergy Unknown Verified 04/10/19 11:55 - Social History Does the pt smoke?: No Smoking Status: Never smoker Does the pt drink ETOH?: No Does the pt have substance abuse?: No - Immunizations Immunizations are current?: Yes PD ED PE NORMAL - Vitals Vital signs reviewed: Yes - General General: Alert and oriented X 3, No acute distress - Extremities Extremities: Other (There is a little lump that is mildly tender, most consistent with a varicosity near the upper Achilles tendon on the right with some venous stasis changes but no overt calf tenderness.) - Neuro Neuro: Alert and oriented X 3, Normal speech Results - Vitals Vitals: Vital Signs - 24 hr 04/10/19 11:48 Temperature 36.8 C Heart Rate 82 Respiratory 17 Rate Blood Pressure 122/65 O2 Saturation 97 Oxygen O2 Source Room air - Rads (name of study) RLE sono Radiology: Final report received (no dvt) Departure - Departure Disposition: 01 Home, Self Care Clinical Impression: Leg edema, right, History of DVT (deep vein thrombosis) Condition: Good Record reviewed to determine appropriate education?: Yes Comments: No evidence of blood clot on today's exam. Follow-up with your doctor next week for recheck. Continue current medications. Return for new or worsening symptoms.
--- NOTE | 2019-04-10 15:06 | Ultrasound Report ---
Reason: rle pain Procedure Date: 04/10/2019 Accession Number: [id number] / [id number] Procedure: US - Duplex Ext Veins Right CPT Code: FULL RESULT: EXAM: RIGHT LOWER EXTREMITY VENOUS ULTRASOUND EXAM DATE: 04/10/2019 02:40 PM. CLINICAL HISTORY: Rle pain. COMPARISON: DUPLEX EXT VEINS RIGHT 04/17/2018 10:50 PM. TECHNIQUE: Real-time sonographic vascular imaging was performed by the peer financial counselor through the lower extremity utilizing both color-flow and Doppler spectral analysis. Multiple member services representative static images were saved for review. FINDINGS: Common Femoral Vein (CFV): Normal. CFV-GSV Junction: Normal. Profunda Femoral Vein (PFV): Normal. Femoral Vein (FV) Prox: Normal. Femoral Vein (FV) Mid: Normal. Femoral Vein (FV) Dist: Normal. Popliteal Vein: Normal. Posterior Tibial Veins: Normal. Peroneal Veins: Normal. Other: Calf veins not well seen. There is calf edema. IMPRESSION: No evidence for deep venous thrombosis. RADIA
[2019-04-10 16:24] VITALS: BP 134/72
== END 2019-04-10 15:01 | disposition home or self-care (01) ==
LOC: ED 11:27
DX: M79.661 Pain in right lower leg (principal); R60.0 Localized edema; Z86.718 Personal history of other venous thrombosis and embolism; Z79.01 Long term (current) use of anticoagulants; I87.8 Other specified disorders of veins; I10 Essential (primary) hypertension
CPT/HCPCS: 99283; 99284

== ENCOUNTER 2019-05-08 09:15 | Outpatient (CLI) | payer MEDICARE, OTHER ==
--- NOTE | 2019-05-09 09:24 | DEXA Report ---
Reason: BONE DISORDER Procedure Date: 05/08/2019 Accession Number: [id number] / [id number] Procedure: DEX - Dexa Spine and/or Hip CPT Code: Final Report FULL RESULT: EXAM: Dexa Spine and/or Hip DATE: 05/08/2019 9:55 AM CLINICAL HISTORY: BONE DISORDER TECHNIQUE: Dual energy x-ray absorptiometry (DXA) was performed on a [employer] System. Regions measured are the AP Spine, femoral neck, and if needed forearm. COMPARISON: None. In accordance with the International Society for Clinical Densitometry (ISCD) guidelines, data from previous exams may be reanalyzed using current recommendations and techniques. This is done to allow a more accurate basis for comparison with the current study. FINDINGS: The data for the lumbar spine is as follows: BMD (g/cm/cm) T-SCORE Z-SCORE REGION L1 1.097 -0.3 0.6 L2 1.067 -1.1 -0.2 L3 1.173 -0.2 0.7 L4 1.259 0.5 1.4 TOTAL 1.158 -0.2 0.7 NOTE: All evaluable vertebrae are used for classification The data for the hip is as follows: BMD (g/cm/cm) T-SCORE Z-SCORE REGION Neck 0.794 -1.8 -0.5 TOTAL 0.916 -0.7 0.2 NOTE: The femoral neck or total proximal femur, whichever is lowest, is used for classification. IMPRESSION: THE WHO CLASSIFICATION BASED ON THE INTERNATIONAL REFERENCE STANDARD IS OSTEOPENIA. THE FRACTURE RISK IS INCREASED. RECOMMENDATION: Patients with diagnosis of osteoporosis or osteopenia should have regular bone mineral density assessment. For those eligible for Medicare, routine testing is allowed once every 2 years. Testing frequency can be increased for patients who have rapidly progressing disease or for those who are receiving medical therapy to restore bone mass. COMMENT: World Health Organization (WHO) definitions for osteoporosis and osteopenia: NORMAL BMD: T-score at -1.0 or higher, fracture risk is low OSTEOPENIA BMD: T-score between -1.0 and -2.5, fracture risk is increased. OSTEOPOROSIS BMD: T-score at -2.5 or lower, fracture risk is high. National Osteoporosis Foundation recommends: 1. Obtain adequate dietary calcium (at least 1200 mg per day) and vitamin D (400-800 international units per day). 2. Participate, as appropriate, in regular weightbearing and muscle-strengthening exercise. 3. Avoid tobacco use and reduce alcohol and caffeine intake. 4. For more detailed information see the website at www.NOF.org.
== END 2019-05-08 09:16 | disposition home or self-care (01) ==
LOC: DI 09:15
PROVIDERS: ATTEND Family Medicine
DX: M85.88 Other specified disorders of bone density and structure, other site (principal)
CPT/HCPCS: 77080

== ENCOUNTER 2020-01-10 07:00 | Outpatient (CLI) | payer MEDICARE, OTHER | END 2020-01-10 23:59 | disposition home or self-care (01) | LOC: LAB.R 07:00 | PROVIDERS: ATTEND Family Medicine | DX: D64.9 Anemia, unspecified (principal) | CPT/HCPCS: 82274 ==

== ENCOUNTER 2020-01-27 12:12 | Outpatient (CLI) | payer MEDICARE, OTHER ==
--- NOTE | 2020-01-27 16:19 | XRAY Report ---
PROCEDURE: Hip w/Pelvis 2-3V LT INDICATIONS: LEFT HIP PAIN TECHNIQUE: AP pelvis with lateral view(s) of the left hip(s). COMPARISON: None. FINDINGS: Bones: No fractures or dislocations. Pelvic ring appears intact. No suspicious bony lesions. Mild bilateral degenerative hip joint space narrowing. Small periarticular osteophytes are present. Degen erative changes are also noted within the lower lumbar spine. Soft tissues: The visualized bowel gas pattern is normal. No suspicious soft tissue calcifications. IMPRESSION: Mild bilateral posterior arthritis within the hips and lower lumbar spine. Reviewed by: Breana Calderon MD on 01/27/2020 4:18 PM PDT Approved by: Breana Calderon MD on 01/27/2020 4:18 PM PDT Station ID: [id number]
== END 2020-01-27 12:13 | disposition home or self-care (01) ==
LOC: DI 12:12
PROVIDERS: ATTEND Family Medicine
DX: M16.0 Bilateral primary osteoarthritis of hip (principal); M47.816 Spondylosis without myelopathy or radiculopathy, lumbar region

== ENCOUNTER 2020-03-12 12:35 | Day surgery (SDC) | payer MEDICARE, OTHER ==
[2020-03-12] MEDS ORDERED: LACTATED RINGERS 1,000 ML IV ONE ×2 (12:40→16:02)
[2020-03-12] MEDS ORDERED: MIDAZOLAM 2 MG/2 ML VIAL IVP ONE (16:02)
[2020-03-12] MEDS ORDERED: fentaNYL 250 MCG/5 ML VIAL IVP ONE (16:02)
[2020-03-12] MEDS ORDERED: NALOXONE 0.4 MG/ML VIAL IVP ONE (16:02)
[2020-03-12] MEDS ORDERED: FLUMAZENIL 0.1 MG/1 ML 5 ML MDV IVP ONE (16:02)
[2020-03-12 18:08] VITALS: BP 133/78
== END 2020-03-12 12:36 | disposition home or self-care (01) ==
LOC: SDS 12:35
PROVIDERS: ATTEND Surgery
DX: K57.30 Diverticulosis of large intestine without perforation or abscess without bleeding (principal); K64.4 Residual hemorrhoidal skin tags; K64.8 Other hemorrhoids; D64.9 Anemia, unspecified; Z80.0 Family history of malignant neoplasm of digestive organs; E03.9 Hypothyroidism, unspecified; K21.9 Gastro-esophageal reflux disease without esophagitis; G47.33 Obstructive sleep apnea (adult) (pediatric); I10 Essential (primary) hypertension; G62.9 Polyneuropathy, unspecified; Z86.718 Personal history of other venous thrombosis and embolism; Z79.01 Long term (current) use of anticoagulants
CPT/HCPCS: 45378; J3010; J7120

== ENCOUNTER 2021-07-08 09:17 | Outpatient (CLI) | payer MEDICARE, OTHER ==
--- NOTE | 2021-07-09 10:16 | XRAY Report ---
PROCEDURE: Foot 3 View RT INDICATIONS: RIGHT FOOT PAIN TECHNIQUE: 3 views of the foot were acquired. COMPARISON: None FINDINGS: Bones: No fractures or dislocations. No suspicious bony lesions. There is medial deviation of the second through fourth digits at the PIP joints most severe at the second and third digits. There is n o visualized fracture or dislocation. Scattered IP degenerative narrowing is present. Lucency is pres ent at the proximal fifth phalanx Soft tissues: No tibiotalar joint effusion. Achilles tendon appears normal. IMPRESSION: Medial angulation of the digits as described above. No visualized fracture. IP arthritic changes. Lucency at the proximal fifth phalanx is not seen on all views. This could represent arthritic subcho ndral cyst versus erosion. If there is concern for potential osteomyelitis within this region seconda ry to superficial infection, further evaluation is recommended. Reviewed by: Breana Calderon MD on 07/09/2021 10:14 AM PST Approved by: Breana Calderon MD on 07/09/2021 10:14 AM PST Station ID: [id number]
== END 2021-07-08 09:18 | disposition home or self-care (01) ==
LOC: DI.WOS 09:17
PROVIDERS: ATTEND Orthopaedic Surgery
DX: M20.40 Other hammer toe(s) (acquired), unspecified foot (principal); M19.071 Primary osteoarthritis, right ankle and foot

== ENCOUNTER 2021-08-31 14:00 | Outpatient (CLI) | payer MEDICARE, OTHER ==
--- NOTE | 2021-08-31 15:42 | XRAY Report ---
PROCEDURE: Chest 2 View X-Ray INDICATIONS: Right-sided chest pain TECHNIQUE: 2 view(s) of the chest. COMPARISON: None. FINDINGS: Surgical changes and devices: None. Lungs and pleura: No pleural effusions or pneumothorax. Lungs are clear. Mediastinum: Mediastinal contours are normal. Heart size is normal. Bones and chest wall: No suspicious bony abnormalities. Soft tissues appear unremarkable. IMPRESSION: No acute cardiopulmonary process demonstrated radiographically. Reviewed by: Rishi Mendez MD on 08/31/2021 3:40 PM PDT Approved by: Rishi Mendez MD on 08/31/2021 3:40 PM PDT Station ID: [id number]
== END 2021-08-31 14:01 | disposition home or self-care (01) ==
LOC: DI.N 14:00
PROVIDERS: ATTEND Family Medicine
DX: R07.89 Other chest pain (principal)

== ENCOUNTER 2021-09-01 11:19 | Emergency (ER) | payer MEDICARE, OTHER ==
--- NOTE | 2021-09-01 11:57 | XRAY Report ---
PROCEDURE: Chest 1 View X-Ray INDICATIONS: chest pain TECHNIQUE: One view of the chest was acquired. COMPARISON: August 31, 2021 FINDINGS: SUPPORT DEVICES: None. LUNGS/PLEURA: No focal consolidation, pleural effusion or space-occupying pneumothorax. MEDIASTINUM: The cardiac silhouette is within normal limits. Retrocardiac density, compatible with hi atal hernia. BONES/SOFT TISSUES: No acute abnormality. Elevation of the right diaphragm eventration. IMPRESSION: 1.No acute cardiopulmonary abnormality. Reviewed by: Alonso Rojas MD on 09/01/2021 11:56 AM PDT Approved by: Alonso Rojas MD on 09/01/2021 11:56 AM PDT Station ID: [id number]
[2021-09-01 11:59] LABS: BASOPHILS % (AUTO) 0.4 %; EOSINOPHILS # (AUTO) 0.3 10^3/uL (0.0-0.7); EOSINOPHILS % (AUTO) 5.9 %; HCT - HEMATOCRIT 36.5 % (37.0-47.0); HGB - HEMOGLOBIN 11.8 g/dL (12.0-16.0); LYMPHOCYTES # (AUTO) 1.2 10^3/uL (1.5-3.5); LYMPHOCYTES % (AUTO) 20.4 %; MEAN CORPUSCULAR HEMOGLOBIN 29.5 pg (27.0-31.0); MEAN CORPUSCULAR HGB CONC 32.3 g/dL (32.0-36.0); MEAN CORPUSCULAR VOLUME 91.3 fL (81.0-99.0); MEAN PLATELET VOLUME 9.3 fL (7.9-10.8); MONOCYTES # (AUTO) 0.4 10^3/uL (0.0-1.0); MONOCYTES % (AUTO) 7.1 %; NEUTROPHILS # (AUTO) 3.7 10^3/uL (1.5-6.6); NEUTROPHILS % (AUTO) 65.8 %; PLT - PLATELET COUNT 248 10^3/uL (130-450); RED CELL DISTRIBUTION WIDTH 13.5 % (12.0-15.0); WHITE BLOOD COUNT 5.6 x10^3/uL (4.8-10.8)
[2021-09-01 12:12] LABS: ALBUMIN 4.3 g/dL (3.2-5.5); ALBUMIN/GLOBULIN RATIO 1.4 (1.0-2.2); BILIRUBIN,TOTAL 0.6 mg/dL (0.2-1.0); CALCIUM 9.2 mg/dL (8.5-10.3); CREATININE 1.1 mg/dL (0.4-1.0); POTASSIUM 3.7 mmol/L (3.5-5.0); TOTAL PROTEIN 7.4 g/dL (6.7-8.2)
--- OUTSIDE RECORDS SUMMARY | 2021-09-01 12:24 | EXTERNAL MEDICAL SUMMARY RPT | Continuity of Care Document ---
:1945 Author Organization [facility] Address [address] [place] [address] Phone Care Team Providers Name Role Phone Samara Canchola Unavailable Unavailable Allergies No information. Encounters No information. Medications date description facility [id number] Bupropion Hydrochloride 100 MG Oral Tab [facility] [id number] Bupropion Hydrochloride 75 MG Oral [facility] Problems Procedures date description facility [id number] [facility] [id number] [facility] [id number] [facility] [id number] [facility] [id number] [facility] [id number] [facility] Results No information. Vital Signs date measurement value source [id number] weight_standard 198.99 lb [id number] weight_metric 90.26 kg [id number] heart_rate 66 /min [id number] BP_systolic 115 mm[Hg] [id number] BP_diastolic 72 mm[Hg]
--- NOTE | 2021-09-01 12:35 | ED Physician Documentation ---
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 Episodic burning RUQ/Chest, sometimes to jaw and lasts 15 minutes and goes away. Happens about twice a month. Not exertional. No clear relation to eating. Has been going on for months. Had EKG and labs done in offie and note troponin of 40 (nl <16) and d-dimer 0.51 (nl <0.5, but age adjested is negative). She has been compliant with her Xarelto. Review of Systems Constitutional: denies: Fever, Chills Ears: reports: Reviewed and negative Nose: reports: Reviewed and negative Throat: reports: Reviewed and negative Respiratory: reports: Reviewed and negative GI: reports: Reviewed and negative PD PAST MEDICAL HISTORY - Past Medical History Past Medical History: Yes Cardiovascular: Hypertension, Deep vein thrombosis Respiratory: Sleep apnea, CPAP use Neuro: Headaches, Migraines, Peripheral neuropathy Endocrine/Autoimmune: None GI: GERD VISUAL INSPECTOR: None : None HEENT: None Psych: Depression, Anxiety Musculoskeletal: Osteoarthritis, Chronic back pain, Other Derm: Other - Past Surgical History Past Surgical History: Yes General: Colonoscopy, Other Ortho: Knee replacement, Arthroscopic surgery /VISUAL INSPECTOR: Tubal ligation, Hysterectomy Cardiovascular: CABG Neuro: Craniotomy HEENT: Tonsil/Adenoidectomy - Present Medications Home Medications: Ambulatory Orders Medication Instructions Recorded Confirmed Folic Acid 0.8 mg PO DAILY 09/08/15 09/01/21 Gabapentin 1 - 2 tab PO BID 09/08/15 09/01/21 Rivaroxaban [Xarelto] 20 mg PO DAILY 09/08/15 09/01/21 Telmisartan/Hydrochlorothiazid 1 tab PO QDBREAKFAST 09/08/15 09/01/21 [Micardis Hct 80-25 mg Tablet] Topiramate 2 tab PO QPM 09/08/15 09/01/21 Vilazodone HCl [Viibryd] 40 mg PO DAILY 09/08/15 09/01/21 Vitamin D3/Folic Acid [Ortho D 1 each PO DAILY 05/17/16 09/01/21 3,775 Unit-1 mg Cap] Cinnamon Bark [Cinnamon] 500 mg PO DAILY 09/25/16 09/01/21 raNITIdine [Zantac] 150 mg PO DAILY 09/25/16 09/01/21 Ferrous Gluconate [Iron] 1 tab PO DAILY 03/11/20 09/01/21 diphenhydrAMINE [Benadryl] 25 mg PO DAILY 03/11/20 09/01/21 Cyanocobalamin (Vitamin B-12) 2,500 mcg PO DAILY 09/01/21 09/01/21 [Vitamin B12] Famotidine [Pepcid] 20 mg PO BID 09/01/21 09/01/21 Fexofenadine [Joy] 180 mg PO DAILY 09/01/21 09/01/21 Melatonin 5 mg PO HS PRN 09/01/21 09/01/21 buPROPion [Wellbutrin Sr] 100 mg PO DAILY 09/01/21 09/01/21 - Allergies Allergies/Adverse Reactions: Allergies Allergy/AdvReac Type Severity Reaction Status Date / Time codeine Allergy Unknown Verified 09/01/21 11:29 - Social History Does the pt smoke?: No Smoking Status: Never smoker Does the pt drink ETOH?: No Does the pt have substance abuse?: No - Immunizations Immunizations are current?: Yes PD ED PE NORMAL - Vitals Vital signs reviewed: Yes - General General: Alert and oriented X 3, No acute distress - HEENT HEENT: PERRL, EOMI - Neck Neck: Supple, no meningeal sign, No bony TTP - Cardiac Cardiac: RRR, No murmur - Respiratory Respiratory: No respiratory distress, Clear bilaterally - Abdomen Abdomen: Normal bowel sounds, Soft, Non tender - Back Back: No CVA TTP - Extremities Extremities: Other (2+ symmetric pedal edema) - Neuro Neuro: Alert and oriented X 3, Normal speech Results - Vitals Vitals: Vital Signs - 24 hr 09/01/21 09/01/21 11:24 11:56 Temperature 36.4 C L Heart Rate 86 81 Respiratory 18 16 Rate Blood Pressure 126/63 113/68 O2 Saturation 100 98 Oxygen O2 Source Room air - Labs Labs: Laboratory Tests 09/01/21 09/01/21 09/01/21 11:50 11:50 11:50 WBC 5.6 RBC 4.00 L Hgb 11.8 L Hct 36.5 L MCV 91.3 MCH 29.5 MCHC 32.3 RDW 13.5 Plt Count 248 MPV 9.3 Neut # (Auto) 3.7 Lymph # (Auto) 1.2 L [place] # (Auto) 0.4 Eos # (Auto) 0.3 Baso # (Auto) 0.0 Absolute Nucleated RBC 0.00 Nucleated RBC % 0.0 Sodium 136 Potassium 3.7 Chloride 100 L Carbon Dioxide 24 Anion Gap 12.0 BUN 23 H Creatinine 1.1 H Estimated GFR (MDRD) 49 L Glucose 97 Calcium 9.2 Total Bilirubin 0.6 AST 15 ALT 17 Alkaline Phosphatase 53 Troponin I High Sens 6.0 Total Protein 7.4 Albumin 4.3 Globulin 3.1 Albumin/Globulin Ratio 1.4 Lipase 39 PD MEDICAL DECISION MAKING - ED course ED course: This is a 75-year-old woman who presents with subacute recurrent nonexertional and atypical chest pain in the setting of having outpatient labs done with a mildly positive troponin. This was repeated today and today is within the normal range. Explanations would include resolved anginal episode versus lab error. 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 As such we agreed that she could be discharged but I did notify Dr. Canchola that the patient probably needs a stress test and she will take a baby aspirin in the interim even noting that she is on Xarelto until that is complete. Departure - Departure Disposition: 01 Home, Self Care Clinical Impression: Atypical chest pain Condition: Good Record reviewed to determine appropriate education?: Yes Instructions: ED Chest Pain Atypical Unkn Cause Comments: Return if you feel ill or develop recurrent chest pain. Otherwise coordinate with Dr. Canchola's office, she will be ordering a stress test for you. Until that is complete with negative results please take a baby aspirin a day, continue your other medications including Xarelto.
[2021-09-01 12:59] VITALS: BP 117/68
== END 2021-09-01 13:03 | disposition home or self-care (01) ==
LOC: ED 11:19
DX: R07.89 Other chest pain (principal)
CPT/HCPCS: 36415; 80053; 83690; 84484; 85025; 93005; 99284

== ENCOUNTER 2021-09-16 09:49 | Outpatient (CLI) | payer MEDICARE, OTHER ==
--- NOTE | 2021-09-16 10:26 | CARDIAC PROCEDURE NOTE ---
Stress Test Report Service Date: 09/16/21 Service Time: 10:00 Ordering Provider: Samara Canchola DO Indication for Test: Assess chest discomfort. Significant Medical History: -Karmen is referred for stress myocardial perfusion imaging to assess for an ischemic contribution to intermittent episodes of right-sided chest discomfort. 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 She was seen by Dr. Canchola a couple of weeks ago and described occasional episodes of discomfort arising in the right upper quadrant area and radiating upward through her chest to her right jaw. The frequency of her episodes is variable, sometimes occurring every couple of weeks, but sometimes the interval between episodes is much longer. The episodes are generally random in onset and are not more likely to occur with exertion. When she experiences the discomfort the duration may be 3 to 5 minutes at most and stretching her upper torso and neck sometimes helps the discomfort to ease up. This is a different sensation than her GERD and it is not associated with diaphoresis or significant changes in breathing. -When seen in Dr. Canchola's office she reported an episode having occurred just prior and thus a troponin was drawn, returning elevated at 40 (normal <16) and she was thus referred to the [facility] Emergency Department, at which time (the next day) a repeat troponin was normal. She has some peripheral neuropathy and balance issues that limit the speed with which she can walk, however she continues walking her 14-year-old dog every day, though the latter is slowing down. She generally has to take her time with walks for other reasons. Cardiac Risk Factors: Positives include recent elevated troponin level, longstanding hypertension and known family history of ASCVD events (one brother with OK/stent in his late 70's, another brother with hx of CVA); she denies hyperlipidemia, diabetes and history of tobacco smoking. Type of Stress Test: ETT with Myocardial Perfusion Imaging Procedure: -Exercise Treadmill Test- After signing informed consent, the patient underwent resting SPECT imaging and then performed treadmill exercise using a Modified Gabriel protocol. The patient exercised for 8 minutes 27 seconds and achieved a peak heart rate of 135 (92 percent predicted maximum heart rate for age), and an estimated workload of 4.6 METS. The test was terminated due to leg fatigue and shortness of breath. Resting heart rate: 78 Peak heart rate: 135 Normal response to exercise. Resting BP: 121/81 Peak BP: 170/79 Normal resting BP with physiologic increase in systolic BP and normal decrease in diastolic BP with exercise. Rhythm during exercise: Sinus rhythm throughout with very rare PVCs. Symptoms: The patient denied experiencing any chest discomfort. EKG at rest showed normal sinus rhythm, normal in all aspects. EKG at peak stress showed no ischemia by EKG criteria. In Recovery heart rate and blood pressure rapidly and normally decreased to near baseline levels. Nuclear imaging was performed at rest and with stress and image interpretation will be reported separately. Enzo Alexander MD, was present throughout this treadmill stress study and supervised it in its entirety. Summary: 1) Exercise tolerance markedly above average for age as evidenced by HAI of - 55%. 2) Normal resting EKG. 3) Adequate level of exercise was achieved on this treadmill stress test. 4) Normal systolic BP response to exercise with modest but abnormal diastolic BP increase. 5) No ischemic changes by EKG criteria were seen at peak stress. 6) Analysis of gated nuclear images reveals normal left ventricular size and systolic function; SPECT analysis reveals a small, mostly fixed kendal-apical defect, most likely due to combination of apical thinning and attenuation artifact. See separate report for more detail. CONCLUSIONS: 1) Reassuringly low risk study, with no evidence of inducible ischemia by symptoms, EKG response or SPECT image analysis. 2) BP well controlled, given resting/exertional responses in spite of her not taking HCTZ and telmisartan for 24 hours.
--- NOTE | 2021-09-16 15:51 | Nuclear Medicine Report ---
PROCEDURE: Rest and exercise myocardial perfusion SPECT with gated imaging and ejection fraction INDICATIONS: CHEST PAIN /EXERCISE RADIOPHARMACEUTICAL: 14.1 mCi Tc-99m Myoview IV at rest and 40.7 mCi Tc-99m Myoview IV at peak exerc ise. [id number] was performed. TECHNIQUE: Radiopharmaceutical was injected at peak stress test, and also at rest. SPECT images wer e obtained. SPECT myocardial perfusion images were displayed in short axis, horizontal long axis, an d vertical long axis views. Gated images were reviewed using AutoQUANT software. COMPARISON: None available. FINDINGS: Raw data: There is good myocardial labeling by radiotracer. No significant motion artifacts. Lung- to-heart ratio is 0.34 (normal is less than 0.46 for tetrafosmin tracer). Left ventricle function: Gated images demonstrate normal left ventricle wall thickening. No segment al wall motion abnormality. No transient ischemic dilation; TID is 0.93 (normal less than 1.30). Th e left ventricle resting end-diastolic volume is 57 mL. Left ventricle stress ejection fraction is g reater than 70%; normal values are above 45%. Myocardial perfusion: There is a small, mild, primarily fixed perfusion defect in the apex, likely s econdary to the combination of apical thinning attenuation artifact. There is otherwise normal distri bution of activity in the left and right ventricular myocardium. No convincing perfusion defects to suggest myocardial ischemia or infarct. IMPRESSION: 1. Probably normal myocardial perfusion images. Fixed defect in the apex is most likely secondary to apical thinning and attenuation artifact. 2. Normal left ventricular volume and systolic function. 3. Please correlate with stress EKG result. PQRS ATTESTATIONS: Measure 322 - Is this imaging test primarily performed on a low-risk surgery patient for preoperative evaluation within 30 days preceding their low-risk non-cardiac surgery? Low-risk surgery is defined as cardiac or myocardial infarction less than 1%, including (but not limited to) endoscopic pr ocedures, superficial procedures, cataract surgery, and excisional breast surgery: Answer: No Measure 323 - Is this imaging test performed primarily for the monitoring of an asymptomatic patient who had percutaneous coronary intervention on the visit date or within 2 years of the visit date? An swer: No Measure 324 - Is this imaging test performed primarily for the initial detection and risk assessment on an asymptomatic, low coronary heart disease patient? Low CHD risk definition = clinicians should consider the maximum number of available patient factors used to estimate risk based on [place] (A TP III criteria), typically age, gender, diabetes, smoking status, and use of blood pressure medicati on, and integrate age appropriate estimates for missing elements, such as LDL or standard blood press ure. Answer: No Reviewed by: Peggy Gerardo MD on 09/16/2021 3:49 PM PDT Approved by: Peggy Gerardo MD on 09/16/2021 3:49 PM PDT Station ID: [id number]
== END 2021-09-16 09:50 | disposition home or self-care (01) ==
LOC: DI 09:49
PROVIDERS: ATTEND Family Medicine
DX: R07.9 Chest pain, unspecified (principal); E66.9 Obesity, unspecified; I10 Essential (primary) hypertension; R79.89 Other specified abnormal findings of blood chemistry; Z82.49 Family history of ischemic heart disease and other diseases of the circulatory system
CPT/HCPCS: 78452; 93016; 93017; 93018; A9500

== ENCOUNTER 2022-04-18 11:05 | Outpatient (CLI) | payer MEDICARE, OTHER ==
--- NOTE | 2022-04-19 11:15 | Mammography Report ---
BILATERAL DIGITAL SCREENING MAMMOGRAM 3D/2D: 04/18/2022 CLINICAL: Routine screening. Comparison is made to exams dated: 05/01/2019 mammogram and 03/30/2016 mammogram - [facility]. There are scattered areas of fibroglandular density in both breasts (category b / 25%-50% glandular t issue). No significant masses, calcifications, or other findings are seen in either breast. There has been no significant interval change. IMPRESSION: NEGATIVE There is no mammographic evidence of malignancy. A 1 year screening mammogram is recommended. Based on the Tyrer Cuzick model (a risk assessment model) the patients lifetime risk is 2.3% and her 10 year risk is 2.1%. According to the ACR, ACS, and NCCN guidelines, an annual breast MRI exam jewel g with mammogram is recommended if the patients lifetime risk is 20% or greater. This exam was interpreted at Station ID: [id number]. NOTE: For mammograms, a report in lay terms will be sent to the patient. Approximately 15% of breast malignancies will not be visualized mammographically. In the management of a palpable breast mass, a negative mammogram must not discourage biopsy of a clinically suspicious lesion. Electronically Signed By: David laguna/cameron:04/18/2022 14:49:16 ACR BI-RADS Category 1: Negative 3341F PARENCHYMAL PATTERN: (A) - The breast(s) demonstrate(s) scattered fibroglandular densities. BI-RADS CATEGORY: (1) - 1 RECOMMENDATION: (ANNUAL) - Recommend routine annual screening mammography. [id number] 1 year screening LATERALITY: (B)
== END 2022-04-18 11:06 | disposition home or self-care (01) ==
LOC: DI.N 11:05
PROVIDERS: ATTEND Physician Assistant
DX: Z12.31 Encounter for screening mammogram for malignant neoplasm of breast (principal)

== ENCOUNTER 2022-04-26 11:05 | Outpatient (CLI) | payer MEDICARE, OTHER ==
--- NOTE | 2022-04-26 17:36 | XRAY Report ---
PROCEDURE: Shoulder 3 View LT INDICATIONS: L SHOULDER PX TECHNIQUE: 3 views of the shoulder were acquired. COMPARISON: None. FINDINGS: Bones: No fractures or dislocations. Moderate acromioclavicular joint osteophytic changes are seen with joint space narrowing, subchondral sclerosis and marginal osteophyte formation. No suspicious sara ny lesions. Visualized ribs appear intact. Soft tissues: No suspicious soft tissue calcifications. IMPRESSION: Moderate left shoulder joint osteoarthritis. No fracture or dislocation. No gross soft t issue abnormalities. Reviewed by: Rylan Munoz MD on 04/26/2022 5:35 PM PST Approved by: Rylan Munoz MD on 04/26/2022 5:35 PM PST Station ID: [id number]
== END 2022-04-26 11:06 | disposition home or self-care (01) ==
LOC: DI.N 11:05
PROVIDERS: ATTEND Physician Assistant
DX: M19.012 Primary osteoarthritis, left shoulder (principal)

== ENCOUNTER 2022-07-14 09:39 | Emergency (ER) | payer MEDICARE, OTHER ==
[2022-07-14] MEDS ORDERED: ONDANSETRON ODT 4 MG TABLET TL STA (09:54)
[2022-07-14 10:08] LABS: BASOPHILS # (AUTO) 0.1 10^3/uL (0.0-0.1); BASOPHILS % (AUTO) 0.8 %; EOSINOPHILS # (AUTO) 0.1 10^3/uL (0.0-0.7); EOSINOPHILS % (AUTO) 2.1 %; HGB - HEMOGLOBIN 11.1 g/dL (12.0-16.0); LYMPHOCYTES # (AUTO) 1.1 10^3/uL (1.5-3.5); LYMPHOCYTES % (AUTO) 16.9 %; MEAN CORPUSCULAR HEMOGLOBIN 28.5 pg (27.0-31.0); MEAN CORPUSCULAR HGB CONC 31.7 g/dL (32.0-36.0); MEAN PLATELET VOLUME 9.5 fL (7.9-10.8); MONOCYTES # (AUTO) 0.5 10^3/uL (0.0-1.0); MONOCYTES % (AUTO) 7.5 %; NEUTROPHILS # (AUTO) 4.8 10^3/uL (1.5-6.6); NEUTROPHILS % (AUTO) 72.4 %; PLT - PLATELET COUNT 247 10^3/uL (130-450); RED BLOOD COUNT 3.89 10^6/uL (4.20-5.40); RED CELL DISTRIBUTION WIDTH 13.5 % (12.0-15.0); WHITE BLOOD COUNT 6.6 x10^3/uL (4.8-10.8)
[2022-07-14 10:19] LABS: ALBUMIN 3.9 g/dL (3.2-5.5); ALBUMIN/GLOBULIN RATIO 1.1 (1.0-2.2); BILIRUBIN,TOTAL 0.8 mg/dL (0.2-1.0); CALCIUM 9.5 mg/dL (8.5-10.3); CREATININE 1.3 mg/dL (0.4-1.0); POTASSIUM 3.9 mmol/L (3.5-5.0); TOTAL PROTEIN 7.4 g/dL (6.7-8.2)
--- OUTSIDE RECORDS SUMMARY | 2022-07-14 10:22 | EXTERNAL MEDICAL SUMMARY RPT | Continuity of Care Document ---
:1945 Author Organization [facility] Address [address] [place] [address] Phone Care Team Providers Name Role Phone Samara Canchola Unavailable Unavailable Allergies No information. Encounters No information. Functional Status No information. Immunizations No information. Medications date description facility 2022-04-18 00:00 [facility] Problems No information. Procedures No information. Results/Labs No information. Social History date description facility 2022-06-30 00:00 Never smoked tobacco ([facility] Vital Signs date measurement value units 2022-06-30 00:00 BMI 43.5 kg/m2 2022-06-30 00:00 BP_diastolic 63 mmHg 2022-06-30 00:00 BP_systolic 98 mmHg 2022-06-30 00:00 heart_rate 77 /min 2022-06-30 00:00 height_metric 144.78 cm 2022-06-30 00:00 height_standard 57 in 2022-06-30 00:00 o2_saturation 98 % 2022-06-30 00:00 weight_metric 91.28 kg 2022-06-30 00:00 weight_standard 201.24 lb
[2022-07-14 10:53] LABS: B. PARAPERTUSSIS- RESP PCR PAN NOT DETECTED; B. PERTUSSIS- RESP PCR PANEL NOT DETECTED; C. PNEUMONIAE- RESP PCR PANEL NOT DETECTED; CORONAVIRUS 229E-RESP PCR NOT DETECTED; CORONAVIRUS HKU1-RESP PCR NOT DETECTED; CORONAVIRUS NL63-RESP PCR NOT DETECTED; CORONAVIRUS OC43-RESP PCR NOT DETECTED; HUMAN METAPNEUMOVIRUS NOT DETECTED; INFLUENZA A- RESP PCR PANEL NOT DETECTED; INFLUENZA B - RESP PCR PANEL NOT DETECTED; M. PNEUMONIAE- RESP PCR PANEL NOT DETECTED; PARAINFLUENZA VIRUS 1 NOT DETECTED; PARAINFLUENZA VIRUS 2 NOT DETECTED; PARAINFLUENZA VIRUS 3 NOT DETECTED; PARAINFLUENZA VIRUS 4 NOT DETECTED; RHINOVIRUS/ENTEROVIRUS NOT DETECTED; RSV- RESP PCR PANEL NOT DETECTED; SARS-CoV-2 -RESP PCR PANEL NOT DETECTED
[2022-07-14] MEDS ORDERED: SODIUM CHLORIDE 0.9% 1,000 ML IV STA (11:55)
--- NOTE | 2022-07-14 11:59 | ED Physician Documentation ---
History of Present Illness - Stated complaint Stated Complaint: FALL,NAUSEA - Chief complaint Chief Complaint: General - History obtained from History obtained from: Patient, Family - Additonal information Additional information: The patient is brought to the emergency department by family for chief complaint of right buttock pain, nausea, hot and cold flashes, and fatigue for the last several days. The patient states that 5 days ago, she was standing on a stepladder when she went to step down and lost her balance, stumbling backward and crashing into a set of Particle board shelves attached to the wall. The patient states that she struck against the shelf with her right buttock and the shelf immediately broke. She states that she did not fall to the floor and did not hit her head. She has had a sore right buttock since. She also has noticed a big bruise and she is on Xarelto. The patient states that the next day, she began to notice a sense of hot and cold flashes with nausea. She has not had much of an appetite. She also states that she has not felt as though she could hold any fluid down and that she has had some dry heaves. The patient denies any respiratory symptoms. No dysuria. The patient has not had any known sick contacts. She states she is vaccinated for COVID. No other complaints at this time. Review of Systems Constitutional: reports: Reviewed and negative Eyes: reports: Reviewed and negative Ears: reports: Reviewed and negative Nose: reports: Reviewed and negative Throat: reports: Reviewed and negative Cardiac: reports: Reviewed and negative Respiratory: reports: Reviewed and negative GI: reports: Nausea : reports: Reviewed and negative Skin: reports: Reviewed and negative Musculoskeletal: reports: Reviewed and negative Neurologic: reports: Reviewed and negative Psychiatric: reports: Reviewed and negative Endocrine: reports: Reviewed and negative Immunocompromised: reports: Reviewed and negative PD PAST MEDICAL HISTORY - Past Medical History Past Medical History: Yes Cardiovascular: Hypertension, Deep vein thrombosis Respiratory: Sleep apnea, CPAP use Neuro: Headaches, Migraines, Peripheral neuropathy Endocrine/Autoimmune: None GI: GERD PSYCHIATRIC TECH: None : None HEENT: None Psych: Depression, Anxiety Musculoskeletal: Osteoarthritis, Chronic back pain, Other Derm: Other - Past Surgical History Past Surgical History: Yes General: Colonoscopy, Other Ortho: Knee replacement, Arthroscopic surgery /PSYCHIATRIC TECH: Tubal ligation, Hysterectomy Cardiovascular: CABG Neuro: Craniotomy HEENT: Tonsil/Adenoidectomy - Present Medications Home Medications: Ambulatory Orders Medication Instructions Recorded Confirmed Folic Acid 0.8 mg PO DAILY 09/08/15 07/14/22 Gabapentin 1 - 2 tab PO BID 09/08/15 07/14/22 Rivaroxaban [Xarelto] 20 mg PO DAILY 09/08/15 07/14/22 Telmisartan/Hydrochlorothiazid 1 tab PO QDBREAKFAST 09/08/15 07/14/22 [Micardis Hct 80-25 mg Tablet] Topiramate 2 tab PO QPM 09/08/15 07/14/22 Vilazodone HCl [Viibryd] 40 mg PO DAILY 09/08/15 07/14/22 Vitamin D3/Folic Acid [Ortho D 1 each PO DAILY 05/17/16 07/14/22 3,775 Unit-1 mg Cap] Cinnamon Bark [Cinnamon] 500 mg PO DAILY 09/25/16 07/14/22 raNITIdine [Zantac] 150 mg PO DAILY 09/25/16 07/14/22 Ferrous Gluconate [Iron] 1 tab PO DAILY 03/11/20 07/14/22 diphenhydrAMINE [Benadryl] 25 mg PO DAILY 03/11/20 07/14/22 Cyanocobalamin (Vitamin B-12) 2,500 mcg PO DAILY 09/01/21 07/14/22 [Vitamin B12] Famotidine [Pepcid] 20 mg PO BID 09/01/21 07/14/22 Fexofenadine [Joy] 180 mg PO DAILY 09/01/21 07/14/22 Melatonin 5 mg PO HS PRN 09/01/21 07/14/22 buPROPion [Wellbutrin Sr] 100 mg PO DAILY 09/01/21 07/14/22 Ondansetron Odt [Zofran] 4 mg TL Q6H PRN #10 tablet 07/14/22 - Allergies Allergies/Adverse Reactions: Allergies Allergy/AdvReac Type Severity Reaction Status Date / Time codeine Allergy Unknown Verified 07/14/22 09:47 - Social History Does the pt smoke?: No Smoking Status: Never smoker Does the pt drink ETOH?: No Does the pt have substance abuse?: No - Immunizations Immunizations are current?: Yes PD ED PE NORMAL - Vitals Vital signs reviewed: Yes - General General: Alert and oriented X 3, No acute distress, Well developed/nourished - HEENT HEENT: Atraumatic, PERRL, EOMI, Moist mucous membranes - Neck Neck: Supple, no meningeal sign - Cardiac Cardiac: RRR, No murmur, Strong equal pulses - Respiratory Respiratory: No respiratory distress, Clear bilaterally - Abdomen Abdomen: Soft, Non tender, Non distended - Back Back: No spinal TTP, Other (No tenderness over lumbosacral spine or coccyx. No deformity) - Derm Derm: Warm and dry, Other (Large contusion on the right buttock.) - Extremities Extremities: No deformity - Neuro Neuro: Alert and oriented X 3 - Psych Psych: Normal mood, Normal affect Results - Vitals Vitals: Vital Signs - 24 hr 07/14/22 07/14/22 07/14/22 09:43 11:47 14:00 Temperature 36.5 C Heart Rate 92 78 76 Respiratory 17 16 18 Rate Blood Pressure 156/89 H 123/75 113/59 L O2 Saturation 99 98 99 Oxygen O2 Source Room air - Labs Labs: Laboratory Tests 07/14/22 07/14/22 07/14/22 09:53 10:00 10:00 WBC 6.6 RBC 3.89 L Hgb 11.1 L Hct 35.0 L MCV 90.0 MCH 28.5 MCHC 31.7 L RDW 13.5 Plt Count 247 MPV 9.5 Neut # (Auto) 4.8 Lymph # (Auto) 1.1 L Greenlee # (Auto) 0.5 Eos # (Auto) 0.1 Baso # (Auto) 0.1 Absolute Nucleated RBC 0.00 Nucleated RBC % 0.0 Sodium 140 Potassium 3.9 Chloride 106 Carbon Dioxide 23 Anion Gap 11.0 BUN 24 H Creatinine 1.3 H Estimated GFR (MDRD) 40 L Glucose 112 H Calcium 9.5 Total Bilirubin 0.8 AST 15 ALT 14 Alkaline Phosphatase 63 Total Protein 7.4 Albumin 3.9 Globulin 3.5 Albumin/Globulin Ratio 1.1 Lipase 34 Nasal Adenovirus (PCR) NOT DETECTED Nasal B. parapertussis DNA (PCR) NOT DETECTED Nasal Coronavir 229E PCR NOT DETECTED Nasal Coronavir HKU1 PCR NOT DETECTED Nasal Coronavir NL63 PCR NOT DETECTED Nasal Coronavir OC43 PCR NOT DETECTED Nasal Enterovir/Rhinovir PCR NOT DETECTED Nasal Influenza B PCR NOT DETECTED Nasal Influenza A PCR NOT DETECTED Nasal Parainfluen 1 PCR NOT DETECTED Nasal Parainfluen 2 PCR NOT DETECTED Nasal Parainfluen 3 PCR NOT DETECTED Nasal Parainfluen 4 PCR NOT DETECTED Nasal RSV (PCR) NOT DETECTED Nasal B.pertussis DNA PCR NOT DETECTED Nasal C.pneumoniae (PCR) NOT DETECTED Mayank Human Metapneumo PCR NOT DETECTED Nasal M.pneumoniae (PCR) NOT DETECTED Nasal SARS-CoV-2 (PCR) NOT DETECTED PD Medical Decision Making - ED course Complexity details: reviewed results, re-evaluated patient, considered differential, d/w patient ED course: The patient was worked up with CBC, CMP, and a respiratory PCR, all of which were unremarkable. These were ordered and reviewed by me. The patient received IV fluids and Zofran and was found to be feeling much better. We have discussed that most likely, her nausea and chills have nothing to do with the fall from the ladder and the bruise on her buttock. It is most likely coincidental that she began to feel ill the day after she took the fall. We have discussed that she most likely has a viral illness which will subside on its, given a few days to a week or two. We have discussed symptomatic management at home as well as the usual indications for follow-up and return. Departure - Departure Disposition: 01 Home, Self Care Clinical Impression: Nausea, Viral syndrome Contusion, buttock Qualifiers: Encounter type: initial encounter Qualified Code(s): S30.0XXA - Contusion of lower back and pelvis, initial encounter Fall Qualifiers: Encounter type: initial encounter Qualified Code(s): W19.XXXA - Unspecified fall, initial encounter Condition: Stable Instructions: ED Viral Syndrome Prescriptions: Ondansetron Odt [Zofran] 4 mg TL Q6H PRN #10 tablet PRN Reason: Nausea / Vomiting Comments: Your labs look good. You do have a big bruise on your right buttock, but you do not have any tenderness over your spine, nor do you have any bruising overlying the spine. As far as your nausea and chills, the symptoms are unlikely to be related to your fall or your bruise. Most likely, you coincidentally picked up a viral infection around the time of your fall. You do not have any of the viruses that we can specifically test for, but there thousands of viruses in the environment that we cannot test for which cause very similar symptoms. You have been treated with IV fluids and nausea medicine today. A prescription for nausea medicine has been electronically transmitted to the [facility] pharmacy in [place] your request. Please pick this up and take the medications as needed. You should be sure to get plenty of clear liquids in small amounts, but frequently, is in every 15 to 20 minutes, in order to stay hydrated. Do not worry about trying to eat at this time. Take your nausea medicine 30 to 60 minutes prior to starting clear liquids, and then take just a few sips at a time. If this stays down, take another few sips and another 20 minutes or so. If you do well with this, you may gradually bring the sips closer together until you are able to tolerate clear liquids. If you are able to tolerate clear liquids for 24 hours, then you begin to take simple solids, such as Ramen noodles or saltine crackers. If you are not yet feeling ready for food, then y ou may wait until you are feeling ready, but whatever the case, do continue the clear liquids. You may follow-up with your primary doctor for further concerns. If you develop increasingly severe symptoms, you may return to the emergency department. Discharge Date/Time: 07/14/22 14:27
[2022-07-14] MEDS ORDERED: ONDANSETRON 4 MG/2 ML VIAL IVP STA (14:00)
[2022-07-14 14:14] VITALS: BP 113/59
== END 2022-07-14 14:27 | disposition home or self-care (01) ==
LOC: ED 09:39
DX: S30.0XXA Contusion of lower back and pelvis, initial encounter (principal); W11.XXXA Fall on and from ladder, initial encounter; W22.09XA Striking against other stationary object, initial encounter; Y92.009 Unspecified place in unspecified non-institutional (private) residence as the place of occurrence of the external cause; B34.9 Viral infection, unspecified; Z20.822 Contact with and (suspected) exposure to COVID-19
CPT/HCPCS: 36415; 80053; 83690; 85025; 87633; 96374; 99283; Q0162

== ENCOUNTER 2023-02-12 15:31 | Inpatient (IN) | payer MEDICARE, OTHER ==
--- OUTSIDE RECORDS SUMMARY | 2023-02-12 16:06 | EXTERNAL MEDICAL SUMMARY RPT | Continuity of Care Document ---
Author Name Unknown Address [address] [place] [address] Phone Organization [facility] Address [address] [place] [address] Phone Care Team Providers Care Behavioral Health Clinician Name Role Phone Samara Canchola Unavailable Unavailable Medications date description facility 2023-01-05 00:[address] [facility] Social History date description facility 2023-01-05 00:00 Never smoked tobacco ([facility]) [facility]
[2023-02-12 16:22] LABS: BASOPHILS % (AUTO) 0.5 %; EOSINOPHILS % (AUTO) 0.5 %; HCT - HEMATOCRIT 32.3 % (37.0-47.0); HGB - HEMOGLOBIN 11.1 g/dL (12.0-16.0); LYMPHOCYTES # (AUTO) 0.5 10^3/uL (1.5-3.5); LYMPHOCYTES % (AUTO) 9.6 %; MEAN CORPUSCULAR HEMOGLOBIN 28.8 pg (27.0-31.0); MEAN CORPUSCULAR HGB CONC 34.4 g/dL (32.0-36.0); MEAN CORPUSCULAR VOLUME 83.7 fL (81.0-99.0); MEAN PLATELET VOLUME 9.4 fL (7.9-10.8); MONOCYTES # (AUTO) 0.6 10^3/uL (0.0-1.0); MONOCYTES % (AUTO) 9.9 %; NEUTROPHILS # (AUTO) 4.5 10^3/uL (1.5-6.6); NEUTROPHILS % (AUTO) 79.3 %; PLT - PLATELET COUNT 229 10^3/uL (130-450); RED BLOOD COUNT 3.86 10^6/uL (4.20-5.40); RED CELL DISTRIBUTION WIDTH 12.5 % (12.0-15.0); WHITE BLOOD COUNT 5.7 x10^3/uL (4.8-10.8)
[2023-02-12 16:53] LABS: ALBUMIN 4.4 g/dL (3.2-5.5); ALBUMIN/GLOBULIN RATIO 1.5 (1.0-2.2); BILIRUBIN,TOTAL 0.7 mg/dL (0.2-1.0); CALCIUM 9.6 mg/dL (8.5-10.3); CREATININE 1.3 mg/dL (0.6-1.3); POTASSIUM 3.8 mmol/L (3.5-4.5); TOTAL PROTEIN 7.3 g/dL (6.4-8.9)
[2023-02-12] MEDS ORDERED: ONDANSETRON 4 MG/2 ML VIAL IVP STA ×2 (17:01→18:59)
[2023-02-12] MEDS ORDERED: SODIUM CHLORIDE 0.9% 1,000 ML IV STA (17:01)
--- NOTE | 2023-02-12 17:02 | ED Physician Documentation ---
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 She subsequently developed some abdominal pain but she thinks is just from the retching. She has had fairly normal but smaller bowel movements related to less oral intake and has not been able to keep down her meds. She has had headaches with this but she thinks it is from the dehydration. PD PAST MEDICAL HISTORY - Past Medical History Cardiovascular: Hypertension, Deep vein thrombosis Respiratory: Sleep apnea, CPAP use Neuro: Headaches, Migraines, Peripheral neuropathy Endocrine/Autoimmune: None GI: GERD OBSTETRICS GYNECOLOGY PHYSICIAN: None : None HEENT: None Psych: Depression, Anxiety Musculoskeletal: Osteoarthritis, Chronic back pain, Other Derm: Other - Past Surgical History Past Surgical History: Yes General: Colonoscopy, Other Ortho: Knee replacement, Arthroscopic surgery /OBSTETRICS GYNECOLOGY PHYSICIAN: Tubal ligation, Hysterectomy Cardiovascular: CABG Neuro: Craniotomy HEENT: Tonsil/Adenoidectomy - Present Medications Home Medications: Ambulatory Orders Medication Instructions Recorded Confirmed Folic Acid 0.8 mg PO DAILY 09/08/15 07/14/22 Gabapentin 1 - 2 tab PO BID 09/08/15 07/14/22 Rivaroxaban [Xarelto] 20 mg PO DAILY 09/08/15 07/14/22 Telmisartan/Hydrochlorothiazid 1 tab PO QDBREAKFAST 09/08/15 07/14/22 [Micardis Hct 80-25 mg Tablet] Topiramate 2 tab PO QPM 09/08/15 07/14/22 Vilazodone HCl [Viibryd] 40 mg PO DAILY 09/08/15 07/14/22 Vitamin D3/Folic Acid [Ortho D 1 each PO DAILY 05/17/16 07/14/22 3,775 Unit-1 mg Cap] Cinnamon Bark [Cinnamon] 500 mg PO DAILY 09/25/16 07/14/22 raNITIdine [Zantac] 150 mg PO DAILY 09/25/16 07/14/22 Ferrous Gluconate [Iron] 1 tab PO DAILY 03/11/20 07/14/22 diphenhydrAMINE [Benadryl] 25 mg PO DAILY 03/11/20 07/14/22 Cyanocobalamin (Vitamin B-12) 2,500 mcg PO DAILY 09/01/21 07/14/22 [Vitamin B12] Famotidine [Pepcid] 20 mg PO BID 09/01/21 07/14/22 Fexofenadine [Joy] 180 mg PO DAILY 09/01/21 07/14/22 Melatonin 5 mg PO HS PRN 09/01/21 07/14/22 buPROPion [Wellbutrin Sr] 100 mg PO DAILY 09/01/21 07/14/22 Ondansetron Odt [Zofran] 4 mg TL Q6H PRN #10 tablet 07/14/22 - Allergies Allergies/Adverse Reactions: Allergies Allergy/AdvReac Type Severity Reaction Status Date / Time codeine Allergy Unknown Verified 02/12/23 15:36 - Social History Does the pt smoke?: No Smoking Status: Never smoker Does the pt drink ETOH?: No Does the pt have substance abuse?: No Substance Use and Type: Other (Denies cannabis use.) - Immunizations Immunizations are current?: Yes PD ED PE NORMAL - Vitals Vital signs reviewed: Yes - General General: No acute distress, Other (Confused with repetitive questioning) - HEENT HEENT: PERRL, EOMI - Neck Neck: Supple, no meningeal sign, No bony TTP - Cardiac Cardiac: RRR, No murmur - Respiratory Respiratory: No respiratory distress, Clear bilaterally - Abdomen Abdomen: Other (Diminished but not absent bowel tones, no tenderness.) - Derm Derm: Normal color, Warm and dry - Neuro Neuro: Normal speech, Other (Confused with repetitive questioning) Eye Opening: Spontaneous Motor: Obeys Commands Verbal: Confused GCS Score: 14 Results - Vitals Vitals: Vital Signs - 24 hr 02/12/23 02/12/23 02/12/23 15:36 15:45 17:45 Temperature 36.8 C 36.8 C Heart Rate 79 79 80 Respiratory 18 18 18 Rate Blood Pressure 139/74 H 139/74 H 130/72 O2 Saturation 99 99 100 02/12/23 19:00 Temperature 36.7 C Heart Rate 82 Respiratory 16 Rate Blood Pressure 128/70 O2 Saturation 100 Oxygen O2 Source Room air - Labs Labs: Laboratory Tests 02/12/23 02/12/23 16:18 16:18 WBC 5.7 RBC 3.86 L Hgb 11.1 L Hct 32.3 L MCV 83.7 MCH 28.8 MCHC 34.4 RDW 12.5 Plt Count 229 MPV 9.4 Neut # (Auto) 4.5 Lymph # (Auto) 0.5 L Sawyer # (Auto) 0.6 Eos # (Auto) 0.0 Baso # (Auto) 0.0 Absolute Nucleated RBC 0.00 Nucleated RBC % 0.0 Sodium 124 L Potassium 3.8 Chloride 91 L Carbon Dioxide 22 Anion Gap 11.0 BUN 19 Creatinine 1.3 Estimated GFR (MDRD) 40 L Glucose 90 Calcium 9.6 Total Bilirubin 0.7 AST 21 ALT 11 Alkaline Phosphatase 68 Total Protein 7.3 Albumin 4.4 Globulin 2.9 Albumin/Globulin Ratio 1.5 Lipase 20 - Rads (name of study) CT head and abdomen/pelvis Relevant Findings:: Final report received, EMP independent interpretation of test PD Medical Decision Making - ED course ED course: 77-year-old presents with vomiting, mild confusion, she is accompanied by her son. Benign exam. CT of the head and abdomen pelvis done with hiatal hernia, moderate to large. Otherwise basically negative with incidental findings and negative head CT. Labs with mild anemia on CBC, significant hyponatremia on CMP new from prior. Presume this is the cause of her encephalopathy. Decision to admit made at 6:34 PM but waiting for telehealth shift change after 7. Case presented to Colette Mosquera, [facility] hospitalist at 7:15 PM. Departure - Departure Disposition: 66 [facility] DC/Xfer Clinical Impression: Vomiting, Hyponatremia Condition: Stable Forms: PCP List
[2023-02-12] MEDS ORDERED: iohexoL-300 100 ML VIAL IVP ONE (18:10)
--- NOTE | 2023-02-12 18:18 | CT Report ---
PROCEDURE: ABDOMEN/PELVIS W INDICATIONS: Vomiting. CONTRAST: 100mll omni 300 TECHNIQUE: After the administration of IV contrast, 5 mm thick sections acquired from the diaphragms to the symp hysis. 5 mm thick coronal and sagittal reformats were acquired. For radiation dose reduction, the f ollowing was used: automated exposure control, adjustment of mA and/or kV according to patient size. COMPARISON: None. FINDINGS: Image quality: Motion artifact is noted. Lung bases and heart: There is a moderate to large hiatal hernia. Liver: No solid mass. Simple appearing liver cysts are seen. Gallbladder and biliary tree: Layering gallstones versus sludge can be seen. No additional CT finding s of cholecystitis can be seen. Spleen: No splenomegaly. Pancreas: No pancreatic ductal dilation. Adrenals: No adrenal nodule. Kidneys and ureters: No hydronephrosis. No renal cystic lesion which requires follow up. No solid mas s. Bowel and peritoneum: No bowel distension. No pathologic free fluid. Distal colonic diverticulosis, w ithout rylan findings of active diverticulitis. The stomach is decompressed, which limits its evaluation. A normal appendix is incidentally noted. Lymph nodes: No central or retroperitoneal adenopathy. Vessels: No infrarenal aortic aneurysm. Atherosclerotic calcification is seen. PELVIS Reproductive organs: This patient is status post hysterectomy. No adnexal masses can be seen. Bladder: No abnormal wall thickening, accounting for underdistension. Pelvic lymph nodes: No pelvic adenopathy by size criteria. Bones: No aggressive osseous abnormality. Focal L5-S1 degenerative change is seen. Milder Other: No significant ventral or inguinal hernia. IMPRESSION: A moderate to large hiatal hernia is seen. No dilated loops of bowel can be seen. The stomach is decompressed. Normal appendix. Motion limited study. Additional findings: Simple liver cysts Layering gallstones versus sludge within the gallbladder Focal L5-S1 degenerative change Hysterectomy Reviewed by: Harvey Robins MD on 02/12/2023 5:16 PM BARRY Approved by: Harvey Robins MD on 02/12/2023 5:16 PM BARRY Station ID: [id number]
--- NOTE | 2023-02-12 18:19 | CT Report ---
PROCEDURE: HEAD WO INDICATIONS: TORRE TECHNIQUE: Noncontrast 4.5 mm thick angled axial sections acquired from the foramen magnum to the vertex. For r adiation dose reduction, the following was used: automated exposure control, adjustment of mA and/or kV according to patient size. COMPARISON: None. FINDINGS: Image quality: Excellent. CSF spaces: Basal cisterns are patent. No extra-axial fluid collections. Ventricles are normal in size and shape. Brain: No midline shift. No intracranial masses or hemorrhage. Corcoran-white matter interface is norm al. Age-appropriate brain parenchymal volume loss and chronic small vessel ischemic change can be se en. Skull and face: Calvarium and visualized facial bones are intact, without suspicious lesions. Hyper ostosis frontalis is incidentally noted, which is not frankly abnormal for a female patient of this a ge. Sinuses: Visualized sinuses and mastoids are clear. IMPRESSION: No significant intracranial abnormality is seen. Reviewed by: Harvey Robins MD on 02/12/2023 5:17 PM BARRY Approved by: Harvey Robins MD on 02/12/2023 5:17 PM AKDT Station ID: [id number]
[2023-02-12] MEDS ORDERED: KETOROLAC 15 MG/ML VIAL IVP STA (18:59)
--- NOTE | 2023-02-12 19:15 | HISTORY & PHYSICAL EXAMINATION ---
Chief Complaint - Chief Complaint Chief Complaint: Nausea/Vomiting History of Present Illness - Admitted From Admitted From:: ER - History Obtained From Records Reviewed: Yes History obtained from: Patient, staff, chart Exam Limitations: Virtual exam - History of Present Illness HPI Comment/Other: H&P was conducted via video remotely, using Access Cart. Patient is in [place]. Physician is in [place]. No one is at bedside. 77 yo F with PMH of CAD, HTN, DVT on lifelong AC, KONSTANTIN on CPAP, P Neuropathy, Migraine H/As, GERD, Depression/Anxiety and DJD presented to the ER with c/o of 2 day h/o N/V/D. Pt first started having loose stools on Monday, then she began to have Nausea/Vomiting. She has had about 3 loose stools/day, including with stool incontinence. She has had about 3 emeses/day since Monday. No black or bloody vomitus or stool. Pt says the vomiting was violent and had bile in it. No abdo pain. She has been unable to tolerate any PO since Monday and has not been able to keep down her prescription medications since Monday. She has also been unable to sleep x 2 nights. +urinary incontinence with vomiting. No dysuria/ hematuria/urinary urgency/frequency. No CP/SOB/cough. +subjective F/C. Pt does not have any known contacts with same symptoms. No recent unusual food or travel. She was last on Antibiotics about 1 month ago for a dental procedure. +generalized weakness and fatigue. +Headache today. Pt was confused on arrival to the ER per ER Provider. She is not confused now. In the ER, Hgb 11.1, Na 124, CR 1.3, U/A pending CT Head: neg CT Abdo: H. Hernia Pt was given IVF, Zofran in the ER. History - Past Medical History Cardiovascular: reports: Hypertension, Deep vein thrombosis Respiratory: reports: Sleep apnea, CPAP use Neuro: reports: Headaches, Migraines, Peripheral neuropathy Endocrine/Autoimmune: reports: None GI: reports: GERD GAS PROVER: reports: None : reports: None HEENT: reports: None Psych: reports: Depression, Anxiety Musculoskeletal: reports: Osteoarthritis, Chronic back pain, Other Derm: reports: Other MRSA Hx?: No - Past Surgical History General: reports: Colonoscopy, Other Ortho: reports: Knee replacement, Arthroscopic surgery /GAS PROVER: reports: Tubal ligation, Hysterectomy Cardiovascular: reports: CABG Neuro: reports: Craniotomy HEENT: reports: Tonsil/Adenoidectomy Meds/Allgy - Home Medications Home Medications: Ambulatory Orders Medication Instructions Recorded Confirmed Folic Acid 0.8 mg PO DAILY 09/08/15 07/14/22 Gabapentin 1 - 2 tab PO BID 09/08/15 07/14/22 Rivaroxaban [Xarelto] 20 mg PO DAILY 09/08/15 07/14/22 Topiramate 2 tab PO QPM 09/08/15 07/14/22 Vilazodone HCl [Viibryd] 40 mg PO DAILY 09/08/15 07/14/22 Vitamin D3/Folic Acid [Ortho D 1 each PO DAILY 05/17/16 07/14/22 3,775 Unit-1 mg Cap] Ferrous Gluconate [Iron] 1 tab PO DAILY 03/11/20 07/14/22 diphenhydrAMINE [Benadryl] 25 mg PO DAILY 03/11/20 07/14/22 Cyanocobalamin (Vitamin B-12) 2,500 mcg PO DAILY 09/01/21 07/14/22 [Vitamin B12] Famotidine [Pepcid] 20 mg PO BID 09/01/21 07/14/22 Melatonin 5 mg PO HS PRN 09/01/21 07/14/22 Telmisartan 80 mg PO DAILY 02/12/23 02/12/23 buPROPion HCL [Bupropion Xl] 300 mg PO DAILY 02/12/23 02/12/23 hydroCHLOROthiazide [Hydrodiuril] 25 mg PO DAILY 02/12/23 02/12/23 - Allergies Allergies/Adverse Reactions: Allergies Allergy/AdvReac Type Severity Reaction Status Date / Time codeine Allergy Unknown Verified 02/12/23 19:59 Review of Systems - All Other Systems All Other Systems: reports: Reviewed and negative Exam - Vital Signs Reviewed Vital Signs: Yes Vital Signs: Vital Signs x48h Temp Pulse Resp BP Pulse Ox 02/12/23 19:00 36.7 C 82 16 128/70 100 02/12/23 17:45 80 18 130/72 100 02/12/23 15:45 36.8 C 79 18 139/74 H 99 02/12/23 15:36 36.8 C 79 18 139/74 H 99 - Physical Exam General Appearance: positive: No acute distress, Alert Eyes Bilateral: positive: EOMI, No scleral icterus ENT: positive: Dry mucous membranes Respiratory: positive: Other (Access cart stethoscope not working; per ER Provider: CTA B/L) Cardiovascular: positive: Other (Access cart stethoscope not working; per ER Provider: RRR, no murmurs) Abdomen: positive: Other (per ER Provider: non-distended, NT, Soft) Extremities: positive: Full ROM, No pedal edema Neurologic/Psychiatric: positive: Oriented x3, CN's nml (2-12), Mood/affect nml Conclusion/Plan - Problem List (1) Hyponatremia Conclusion/Plan: Nausea/Vomiting/Diarrhea Hyponatremia MORGAN -pt was confused on arrival to ER per ER staff; now not confused -Na 124, CR 1.3, U/A pending -CT Head: neg -CT Abdo: H. Hernia -Pt was given IVF, Zofran in the ER. -admit to Med tele -continue IVF, anti-emetics -check stool studies -clear liquid diet; advance as tolerated -hold home medications: Telmisartan-HCTZ, Topamax -check BMPs q4 hr to ensure not correcting Na too quickly -avoid nephrotoxins Headache -most likely d/t Dehydration -Tylenol PRN Anemia, normocytic, chronic -Hgb 11.1; at baseline -continue home medications: iron, B12, Folate CAD HTN -hold home medications: Telmisartan-HCTZ d/t Hyponatremia -restart once symptoms resolved DVT on lifelong AC -continue home medications: Xarelto KONSTANTIN on CPAP -continue home CPAP P Neuropathy -hold home medications: Gabapentin d/t Nausea, Vomiting, Diarrhea -restart once symptoms resolved Migraine H/As -hold home medications: Topamax d/t Nausea, Diarrhea -restart once symptoms resolved GERD, -continue home medications: Pepcid Depression/Anxiety Insomnia -continue home medications: Buproprion, Vibryd VTE Prophylaxis: on Xarelto Code Status: D/W pt; she is Full Code ~Colette Mosquera MD Hospitalist - Lab Results Fish Bones: 02/12/23 16:18 02/12/23 16:18
[2023-02-12] MEDS ORDERED: MELATONIN 5 MG PO PRN (19:28)
[2023-02-12] MEDS ORDERED: ONDANSETRON ODT 4 MG TABLET TL PRN (19:28)
[2023-02-12] MEDS ORDERED: SODIUM CHLORIDE FLUSH 0.9% 10 ML SYRINGE IVP PRN (19:30)
[2023-02-12] MEDS ORDERED: PROCHLORPERAZINE 10 MG/2 ML VIAL IVP PRN (19:30)
[2023-02-12] MEDS ORDERED: ONDANSETRON 4 MG/2 ML VIAL IVP PRN (19:30)
[2023-02-12] MEDS ORDERED: ACETAMINOPHEN 325 MG TABLET PO PRN (19:30)
[2023-02-12 20:12] LABS: BILIRUBIN,URINE NEGATIVE (NEGATIVE); GLUCOSE, URINE (UA) NEGATIVE (NEGATIVE); KETONES,URINE (UA) 40 mg/dL (NEGATIVE); LEUKOCYTE ESTERASE, URINE NEGATIVE (NEGATIVE); NITRITE,URINE NEGATIVE (NEGATIVE); OCCULT BLOOD,URINE NEGATIVE (NEGATIVE); PH,URINE 5.5 PH (5.0-7.5); PROTEIN,URINE NEGATIVE (NEGATIVE); UROBILINOGEN,URINE 1 (NORMAL) E.U./dL (NORMAL)
[2023-02-12 20:14] LABS: CLARITY,URINE CLEAR (CLEAR)
[2023-02-12 20:29] LABS: CALCIUM 8.8 mg/dL (8.5-10.3); CREATININE 1.2 mg/dL (0.6-1.3); POTASSIUM 3.7 mmol/L (3.5-4.5)
[2023-02-12] MEDS: SODIUM CHLORIDE 0.9% 1,000 ML IV SCH (20:32)
[2023-02-12] MEDS ORDERED: TOPIRAMATE 25 MG TABLET PO SCH (21:00)
[2023-02-12] MEDS: GABAPENTIN 300 MG CAPSULE PO SCH (21:15)
[2023-02-12] MEDS: FAMOTIDINE 20 MG TABLET PO SCH (21:15)
[2023-02-12] MEDS ORDERED: traZODone 50 MG TABLET PO PRN (23:43)
[2023-02-13 00:02] LABS: CALCIUM 8.1 mg/dL (8.5-10.3); CREATININE 1.3 mg/dL (0.4-1.0); POTASSIUM 3.5 mmol/L (3.5-5.0)
[2023-02-13 05:37] LABS: CALCIUM 8.3 mg/dL (8.5-10.3); CREATININE 1.3 mg/dL (0.6-1.3); POTASSIUM 3.3 mmol/L (3.5-4.5)
[2023-02-13] MEDS: SODIUM CHLORIDE 0.9% 1,000 ML IV SCH (06:32)
[2023-02-13] MEDS: SODIUM CHLORIDE FLUSH 0.9% 10 ML SYRINGE IVP SCH ×2 (06:32→08:42)
[2023-02-13] MEDS ORDERED: FERROUS GLUCONATE 324 MG TABLET PO SCH (08:00)
[2023-02-13] MEDS: GABAPENTIN 300 MG CAPSULE PO SCH (08:37)
[2023-02-13] MEDS: FAMOTIDINE 20 MG TABLET PO SCH (08:37)
[2023-02-13] MEDS ORDERED: APIXABAN 5 MG TABLET PO SCH (09:00)
[2023-02-13] MEDS ORDERED: CYANOCOBALAMIN 500 MCG TABLET PO SCH ×2 (09:00→15:25)
[2023-02-13] MEDS ORDERED: FERROUS GLUCONATE 240 MG PO SCH (09:00)
[2023-02-13] MEDS ORDERED: LORATADINE 10 MG TABLET PO SCH (09:00)
[2023-02-13] MEDS ORDERED: buPROPion SR 100 MG TABLET PO SCH (09:00)
[2023-02-13] MEDS ORDERED: NON FORMULARY MED (Rivaroxaban [Xarelto] 20 MG Tablet) PO SCH (09:00)
[2023-02-13] MEDS ORDERED: CYANOCOBALAMIN 5000 MCG PO SCH (09:00)
[2023-02-13] MEDS ORDERED: FEXOFENADINE 60 MG PO SCH (09:00)
--- NOTE | 2023-02-13 09:03 | PROVIDER PROGRESS NOTE ---
Assessment/Plan - Problem List (1) Nausea vomiting and diarrhea Assessment/Plan: * Likely secondary to gastroenteritis * No evidence of sepsis, and with nontender abdomen or no bloody stools, with no leukocytosis, abdominal infection of bacterial etiology is unlikely * Patient significantly improving stating no diarrhea in the past 2 days and no vomiting in the past 1 day * Overnight after admission, patient feels improved with no nausea/vomiting, diarrhea * Will DC contact precautions as C. difficile essentially ruled out with no diarrhea for 2 days * Follow remainder of stool studies * Discussed with patient option to advance diet beyond clear liquids and she would like to try full liquid diet today but is hesitant to advance much further than that and thinks she would like to take it slow for now (2) Hyponatremia Assessment/Plan: * Sodium 124 on admission which was initially associated with confusion that quickly resolved in the ED * Likely secondary to volume loss in the setting of nausea/vomiting/diarrhea * Sodium slowly increased to 127 overnight, 126 this a.m. * Continue slow gradual increase towards normal * Continue NS at 100 mill per hour pending improvement of p.o. intake * Repeat labs in a.m. (3) Hypokalemia Assessment/Plan: * Potassium 3.3 likely secondary to GI loss * Replace p.o. (4) Chronic anemia Assessment/Plan: * Patient with known history of microcytic anemia likely secondary to iron deficiency * Hemoglobin 11.1/hematocrit 32 * Resume home meds including iron and B12 (5) CAD (coronary artery disease) Assessment/Plan: * Stable * No chest pain (6) HTN (hypertension) Assessment/Plan: * BP currently well controlled without use of home meds * Continue to monitor BP and if necessary resume telmisartan (7) KONSTANTIN (obstructive sleep apnea) Assessment/Plan: * Cont CPAP (8) Peripheral neuropathy Assessment/Plan: * Stable * Cont Gabapentin (9) Migraine headache Qualifiers: Migraine type: chronic without aura Status migrainosus presence: without status migrainosus Intractability: not intractable Qualified Code(s): G43.709 - Chronic migraine without aura, not intractable, without status migrainosus Assessment/Plan: * TORRE resolved with hydration * Cont Topamax * PRN APAP (10) GERD (gastroesophageal reflux disease) Assessment/Plan: * Stable * Cont Famotidine (11) Depression with anxiety Assessment/Plan: * Stable * Cont home Wellbutrin (12) History of DVT (deep vein thrombosis) Assessment/Plan: * No acute pain * Cont AC, Eliquis exchanged for home Xarelto - Current Meds Current Meds: Current Medications Generic Name Dose Route Start Last Admin Trade Name Freq PRN Reason Stop Dose Admin Apixaban 5 mg 02/13/23 09:00 02/13/23 08:37 Apixaban 5 Mg Tablet PO 5 mg BID PHILL Administration Bupropion HCl 100 mg 02/13/23 09:00 02/13/23 08:37 Bupropion Sr 100 Mg Tablet PO 100 mg DAILY PHILL Administration Cyanocobalamin 2,500 mcg 02/13/23 09:00 02/13/23 08:36 Cyanocobalamin 500 Mcg Tablet PO 2,500 mcg DAILY PHILL Administration Famotidine 20 mg 02/12/23 21:00 02/13/23 08:37 Famotidine 20 Mg Tablet PO 20 mg BID PHILL Administration Ferrous Gluconate 324 mg 02/13/23 08:00 02/13/23 08:36 Ferrous Gluconate 324 Mg Tablet PO Not Given DAILYWM PHILL Gabapentin 300 mg 02/12/23 21:00 02/13/23 08:37 Gabapentin 300 Mg Capsule PO 300 mg BID PHILL Administration Sodium Chloride 1,000 mls @ 100 mls/hr 02/12/23 20:00 02/13/23 06:32 Normal Saline 0.9% IV 100 mls/hr .Q10H PHILL Administration Loratadine 10 mg 02/13/23 09:00 02/13/23 08:37 Loratadine 10 Mg Tablet PO 10 mg DAILY PHILL Administration Prochlorperazine Edisylate 10 mg 02/12/23 19:30 02/12/23 20:31 Prochlorperazine 10 Mg/2 Ml Vial IVP 10 mg Q6HR PRN Administration Nausea / Vomiting Sodium Chloride 10 ml 02/13/23 01:00 02/13/23 08:42 Sodium Chloride Flush 0.9% 10 Ml Syringe IVP Not Given 0100,0900,1700 PHILL Topiramate 50 mg 02/12/23 21:00 02/12/23 21:15 Topiramate 25 Mg Tablet PO 50 mg QPM PHILL Administration Trazodone HCl 50 mg 02/12/23 23:43 02/12/23 23:56 Trazodone 50 Mg Tablet PO 50 mg QPM PRN Administration Insomnia - Lab Result Lab results reviewed: Yes Fish Bone Diagrams: 02/12/23 16:18 02/13/23 04:43 - EKG Results EKG Interpreted Independently: Yes - Additional Planning Condition/Complexity: Improved Subjective - Subjective Patient Reports: Feeling Better Objective Vital Signs: Vital Signs - 24 hr 02/12/23 02/12/23 02/12/23 15:36 15:45 17:45 Temperature 36.8 C 36.8 C Heart Rate 79 79 80 Heart Rate [ Monitoring electrodes] Respiratory 18 18 18 Rate Blood Pressure 139/74 H 139/74 H 130/72 Blood Pressure [Left Brachial artery] Blood Pressure [Right Brachial artery] O2 Saturation 99 99 100 02/12/23 02/12/23 02/12/23 19:00 19:45 20:02 Temperature 36.7 C Heart Rate 82 73 77 Heart Rate [ Monitoring electrodes] Respiratory 16 16 16 Rate Blood Pressure 128/70 139/61 H 123/64 Blood Pressure [Left Brachial artery] Blood Pressure [Right Brachial artery] O2 Saturation 100 96 96 02/12/23 02/12/23 02/13/23 20:22 23:28 04:50 Temperature 36.7 C 36.8 C 36.8 C Heart Rate Heart Rate [ 74 79 79 Monitoring electrodes] Respiratory 16 16 16 Rate Blood Pressure Blood Pressure 137/68 H 102/48 L [Left Brachial artery] Blood Pressure 125/62 [Right Brachial artery] O2 Saturation 98 97 94 02/13/23 08:00 Temperature 36.6 C Heart Rate Heart Rate [ 80 Monitoring electrodes] Respiratory 18 Rate Blood Pressure Blood Pressure 126/53 L [Left Brachial artery] Blood Pressure [Right Brachial artery] O2 Saturation 96 Oxygen O2 Source Room air I&O (Last 24 Hrs): Intake and Output Totals x24h 02/11/23 02/12/23 02/13/23 23:59 23:59 23:59 Intake Total 1050 1100 Output Total 670 Balance 1050 430 General: Alert, Oriented x3 HEENT: Atraumatic, EOMI Neuro: Alert, CN 2-12 Grossly Intact, Oriented Times 3 Cardiovascular: Regular rate, Normal S1, Normal S2 Respiratory: Chest non-tender, No respiratory distress, Breath sounds nml Abdomen: Normal bowel sounds, Soft, No tenderness, No hepatospenomegaly Extremities: No clubbing, No cyanosis, No edema Skin: No rashes - Results Results: Laboratory Results WBC 5.7 x10^3/uL (4.8-10.8) 02/12/23 16:18 RBC 3.86 10^6/uL (4.20-5.40) L 02/12/23 16:18 Hgb 11.1 g/dL (12.0-16.0) L 02/12/23 16:18 Hct 32.3 % (37.0-47.0) L 02/12/23 16:18 MCV 83.7 fL (81.0-99.0) 02/12/23 16:18 MCH 28.8 pg (27.0-31.0) 02/12/23 16:18 MCHC 34.4 g/dL (32.0-36.0) 02/12/23 16:18 RDW 12.5 % (12.0-15.0) 02/12/23 16:18 Plt Count 229 10^3/uL (130-450) 02/12/23 16:18 MPV 9.4 fL (7.9-10.8) 02/12/23 16:18 Neut # (Auto) 4.5 10^3/uL (1.5-6.6) 02/12/23 16:18 Lymph # (Auto) 0.5 10^3/uL (1.5-3.5) L 02/12/23 16:18 Clark # (Auto) 0.6 10^3/uL (0.0-1.0) 02/12/23 16:18 Eos # (Auto) 0.0 10^3/uL (0.0-0.7) 02/12/23 16:18 Baso # (Auto) 0.0 10^3/uL (0.0-0.1) 02/12/23 16:18 Absolute Nucleated RBC 0.00 x10^3/uL 02/12/23 16:18 Nucleated RBC % 0.0 /100WBC 02/12/23 16:18 Sodium 126 mmol/L (135-145) L 02/13/23 04:43 Potassium 3.3 mmol/L (3.5-4.5) L 02/13/23 04:43 Chloride 99 mmol/L (101-111) L 02/13/23 04:43 Carbon Dioxide 20 mmol/L (21-32) L 02/13/23 04:43 Anion Gap 7.0 (6-13) 02/13/23 04:43 BUN 18 mg/dL (6-20) 02/13/23 04:43 Creatinine 1.3 mg/dL (0.6-1.3) 02/13/23 04:43 Estimated GFR (MDRD) 40 (>89) L 02/13/23 04:43 Glucose 73 mg/dL (74-104) L 02/13/23 04:43 Calcium 8.3 mg/dL (8.5-10.3) L 02/13/23 04:43 Total Bilirubin 0.7 mg/dL (0.2-1.0) 02/12/23 16:18 AST 21 IU/L (10-42) 02/12/23 16:18 ALT 11 IU/L (10-60) 02/12/23 16:18 Alkaline Phosphatase 68 IU/L (42-121) 02/12/23 16:18 Total Protein 7.3 g/dL (6.4-8.9) 02/12/23 16:18 Albumin 4.4 g/dL (3.2-5.5) 02/12/23 16:18 Globulin 2.9 g/dL (2.1-4.2) 02/12/23 16:18 Albumin/Globulin Ratio 1.5 (1.0-2.2) 02/12/23 16:18 Lipase 20 U/L (11-82) 02/12/23 16:18 Urine Color YELLOW 02/12/23 20:00 Urine Clarity CLEAR (CLEAR) 02/12/23 20:00 Urine pH 5.5 PH (5.0-7.5) 02/12/23 20:00 Ur Specific [place] <=1.005 (1.002-1.030) 02/12/23 20:00 Urine Protein NEGATIVE mg/dL (NEGATIVE) 02/12/23 20:00 Urine Glucose (UA) NEGATIVE mg/dL (NEGATIVE) 02/12/23 20:00 Urine Ketones 40 mg/dL (NEGATIVE) H 02/12/23 20:00 Urine Occult Blood NEGATIVE (NEGATIVE) 02/12/23 20:00 Urine Nitrite NEGATIVE (NEGATIVE) 02/12/23 20:00 Urine Bilirubin NEGATIVE (NEGATIVE) 02/12/23 20:00 Urine Urobilinogen 1 (NORMAL) E.U./dL (NORMAL) 02/12/23 20:00 Ur Leukocyte Esterase NEGATIVE (NEGATIVE) 02/12/23 20:00 Ur Microscopic Review NOT INDICATED 02/12/23 20:00 Urine Culture Comments NOT INDICATED 02/12/23 20:00 - Procedures Procedures: Procedures EXCISION OF UTERUS, ENDO, DIAGN (05/18/16) EXTRACTION OF ENDOMETRIUM, ENDO, DIAGN (05/18/16) REPAIR PELVIC SUBCU/FASCIA, OPEN APPROACH (06/28/17) REPAIR URETHRA, VIA NATURAL OR ARTIFICIAL OPENING (06/28/17) RESECTION OF BI FALLOPIAN TUBE, VIA OPENING W PERC ENDO (06/28/17) RESECTION OF BILATERAL OVARIES, VIA OPENING W PERC ENDO (06/28/17) RESECTION OF UTERUS, VIA OPENING W PERC ENDO (06/28/17) Sepsis Event Note (H) - Evaluation Current Stage of Sepsis: Ruled out ABX Reporting Has patient been on IV antibiotics over the past 48 hours?: No Current Medications - Current Medications Current Medications: Current Medications Generic Name Dose Route Start Last Admin Trade Name Freq PRN Reason Stop Dose Admin Apixaban 5 mg 02/13/23 09:00 02/13/23 08:37 Apixaban 5 Mg Tablet PO 5 mg BID PHILL Administration Bupropion HCl 100 mg 02/13/23 09:00 02/13/23 08:37 Bupropion Sr 100 Mg Tablet PO 100 mg DAILY PHILL Administration Cyanocobalamin 2,500 mcg 02/13/23 09:00 02/13/23 08:36 Cyanocobalamin 500 Mcg Tablet PO 2,500 mcg DAILY PHILL Administration Famotidine 20 mg 02/12/23 21:00 02/13/23 08:37 Famotidine 20 Mg Tablet PO 20 mg BID PHILL Administration Ferrous Gluconate 324 mg 02/13/23 08:00 02/13/23 08:36 Ferrous Gluconate 324 Mg Tablet PO Not Given DAILYWM PHILL Gabapentin 300 mg 02/12/23 21:00 02/13/23 08:37 Gabapentin 300 Mg Capsule PO 300 mg BID PHILL Administration Sodium Chloride 1,000 mls @ 100 mls/hr 02/12/23 20:00 02/13/23 06:32 Normal Saline 0.9% IV 100 mls/hr .Q10H PHILL Administration Loratadine 10 mg 02/13/23 09:00 02/13/23 08:37 Loratadine 10 Mg Tablet PO 10 mg DAILY PHILL Administration Prochlorperazine Edisylate 10 mg 02/12/23 19:30 02/12/23 20:31 Prochlorperazine 10 Mg/2 Ml Vial IVP 10 mg Q6HR PRN Administration Nausea / Vomiting Sodium Chloride 10 ml 02/13/23 01:00 02/13/23 08:42 Sodium Chloride Flush 0.9% 10 Ml Syringe IVP Not Given 0100,0900,1700 PHILL Topiramate 50 mg 02/12/23 21:00 02/12/23 21:15 Topiramate 25 Mg Tablet PO 50 mg QPM PHILL Administration Trazodone HCl 50 mg 02/12/23 23:43 02/12/23 23:56 Trazodone 50 Mg Tablet PO 50 mg QPM PRN Administration Insomnia
[2023-02-13 09:09] LABS: BASOPHILS % (AUTO) 0.4 %; EOSINOPHILS # (AUTO) 0.1 10^3/uL (0.0-0.7); EOSINOPHILS % (AUTO) 3.1 %; HCT - HEMATOCRIT 29.9 % (37.0-47.0); HGB - HEMOGLOBIN 10.2 g/dL (12.0-16.0); LYMPHOCYTES # (AUTO) 0.8 10^3/uL (1.5-3.5); LYMPHOCYTES % (AUTO) 17.5 %; MEAN CORPUSCULAR HEMOGLOBIN 29.4 pg (27.0-31.0); MEAN CORPUSCULAR HGB CONC 34.1 g/dL (32.0-36.0); MEAN CORPUSCULAR VOLUME 86.2 fL (81.0-99.0); MEAN PLATELET VOLUME 9.7 fL (7.9-10.8); MONOCYTES # (AUTO) 0.6 10^3/uL (0.0-1.0); MONOCYTES % (AUTO) 12.9 %; NEUTROPHILS % (AUTO) 65.9 %; PLT - PLATELET COUNT 188 10^3/uL (130-450); RED BLOOD COUNT 3.47 10^6/uL (4.20-5.40); RED CELL DISTRIBUTION WIDTH 12.7 % (12.0-15.0); WHITE BLOOD COUNT 4.6 x10^3/uL (4.8-10.8)
[2023-02-13 09:18] LABS: CALCIUM 8.5 mg/dL (8.5-10.3); CREATININE 1.3 mg/dL (0.6-1.3); POTASSIUM 3.2 mmol/L (3.5-4.5)
[2023-02-13] MEDS ORDERED: POTASSIUM CHLORIDE 20 MEQ TABLET PO SCH (10:00)
--- NOTE | 2023-02-13 10:29 | PHARMACY PROGRESS NOTE ---
- Best Possible Medication History Admit Date and Time: 02/12/231929 Processed by: Pharmacy Medication History completed: Yes Patient Interview: Completed Secondary Source(s): Physician records, Insurance records As the person ultimately responsible for medication therapy, providers are able to order a medication from an existing home medication list in [facility] via the "Reconcile Routine" prior to Confirmation of that medication by clinical support associate. Such practice is discouraged except when the physician, in their clinical judgment, deems that a medical need exists for a medication without regard to previous use.
[2023-02-13] MEDS: VILAZODONE HCL 40 MG PO SCH ×2 (13:29→16:48)
[2023-02-13 16:01] VITALS: BP 113/55; O2SAT 96
--- NOTE | 2023-02-13 17:09 | Discharge Plan ---
Discharge Plan Problem Reviewed?: Yes Disposition: Home, Self Care Condition: Good Diet: Regular Activity Restrictions: No Restrictions Health Concerns: I suspect you had a condition called viral gastroenteritis which is when a viral infection causes stomach upset with diarrhea, nausea, and vomiting. This subsequently caused your electrolytes to be disruptive leading to low sodium and potassium levels, most significantly, your sodium level. This has improved as the nausea, vomiting, and diarrhea have resolved, and your electrolytes were replenished with normal saline. Your sodium level has improved but is not quite yet normal. I believe it is safe for you to discharge home, as this will likely improve as you return to a normal diet, but I encourage you to go ahead and get that lab draw that your PCP ordered as this will allow your PCP to evaluate the sodium level at your next follow-up visit. Additional Instructions or Follow Up instructions: Follow up labs as ordered by your PCP No Smoking: If you smoke, Please STOP! Call for help.
--- NOTE | 2023-02-13 17:23 | DISCHARGE SUMMARY ---
Discharge Summary Admit Date: 02/12/23 Discharge Date: 02/13/23 Discharging Provider: Dr Stevie Giron MD Primary Care Provider: Maye Díaz - PAC Code Status: Attempt Resuscitation Condition at Discharge: Good Discharge Disposition: 01 Home, Self Care - DIAGNOSES Admission Diagnoses: Nausea/vomiting/diarrhea Hyponatremia MORGAN Headache Chronic normocytic anemia CAD HTN DVT on lifelong anticoagulation KONSTANTIN on CPAP Peripheral neuropathy Migraine headache GERD Depression/anxiety Discharge Diagnoses with Status of Each Condition: (1) Nausea vomiting and diarrhea Assessment/Plan: * Much improved (2) Hyponatremia Assessment/Plan: * Improved (3) Hypokalemia Assessment/Plan: * Stable (4) Chronic anemia Assessment/Plan: * Stable (5) CAD (coronary artery disease) Assessment/Plan: * Stable (6) HTN (hypertension) Assessment/Plan: * Stable (7) KONSTANTIN (obstructive sleep apnea) Assessment/Plan: * Stable (8) Peripheral neuropathy Assessment/Plan: * Stable (9) Migraine headache Qualifiers: Migraine type: chronic without aura Status migrainosus presence: without status migrainosus Intractability: not intractable Qualified Code(s): G43.709 - Chronic migraine without aura, not intractable, without status migrainosus Assessment/Plan: * Stable (10) GERD (gastroesophageal reflux disease) Assessment/Plan: * Stable (11) Depression with anxiety Assessment/Plan: * Stable (12) History of DVT (deep vein thrombosis) Assessment/Plan: * Stable - HPI History of Present Illness: H&P was conducted via video remotely, using Access Cart. [place] No one is at bedside. 77 yo F with PMH of CAD, HTN, DVT on lifelong AC, KONSTANTIN on CPAP, P Neuropathy, Migraine H/As, GERD, Depression/Anxiety and DJD presented to the ER with c/o of 2 day h/o N/V/D. Pt first started having loose stools on Monday, then she began to have Nausea/Vomiting. She has had about 3 loose stools/day, including with stool incontinence. She has had about 3 emeses/day since Monday. No black or bloody vomitus or stool. Pt says the vomiting was violent and had bile in it. No abdo pain. She has been unable to tolerate any PO since Monday and has not been able to keep down her prescription medications since Monday. She has also been unable to sleep x 2 nights. +urinary incontinence with vomiting. No dysuria/hematuria/urinary urgency/frequency. No CP/SOB/cough. +subjective F/C. Pt does not have any known contacts with same symptoms. No recent unusual food or travel. She was last on Antibiotics about 1 month ago for a dental procedure. +generalized weakness and fatigue. +Headache today. Pt was confused on arrival to the ER per ER Provider. She is not confused now. In the ER, Hgb 11.1, Na 124, CR 1.3, U/A pending CT Head: neg CT Abdo: H. Hernia Pt was given IVF, Zofran in the ER. - HOSPITAL COURSE Hospital Course: Patient had a progressive and relatively uneventful hospital course. On admission she was started on IV fluids. She had a gradual improvement in her symptoms with no further nausea vomiting or diarrhea by the morning after admission. Her vital signs were stable. Labs were relatively unremarkable with the exception of the mild hyponatremia that improved to 127 up from 124, and 4 potassium that hovered around 3.3. She was trialed on a clear liquid diet followed by a full liquid diet after which she tolerated it very well and was able to resume a regular diet with no further symptoms. Given that she had no further symptoms and was essentially back at her baseline clinically, she was deemed to be safe for discharge. She already had a lab order from her PCP that was to be reviewed at a follow-up appointment next week. She was encouraged to have these labs drawn so that the sodium level could be repeated and to follow-up with her PCP or sooner for any other concerning symptoms. - ALLERGIES Allergies/Adverse Reactions: Allergies Allergy/AdvReac Type Severity Reaction Status Date / Time codeine AdvReac Nausea Verified 02/13/23 10:11 - MEDICATIONS Home Medications: Ambulatory Orders Medication Instructions Recorded Confirmed Folic Acid 0.8 mg PO DAILY 09/08/15 02/12/23 Gabapentin 300 - 600 mg PO BID 09/08/15 02/13/23 Rivaroxaban [Xarelto] 20 mg PO QPM 09/08/15 02/13/23 Topiramate 25 - 75 mg PO BID 09/08/15 02/13/23 Vilazodone HCl [Viibryd] 40 mg PO DAILY 09/08/15 02/12/23 diphenhydrAMINE [Benadryl] 50 mg PO BID 03/11/20 02/13/23 Famotidine [Pepcid] 20 mg PO BID 09/01/21 02/12/23 Telmisartan 80 mg PO DAILY 02/12/23 02/12/23 buPROPion HCL [Bupropion Xl] 300 mg PO DAILY 02/12/23 02/12/23 hydroCHLOROthiazide [Hydrodiuril] 25 mg PO DAILY 02/12/23 02/12/23 Cholecalciferol [Vitamin D3] 25 mcg PO DAILY 02/13/23 02/13/23 Cyanocobalamin (Vitamin B-12) 1,000 mcg PO DAILY 02/13/23 02/13/23 [Vitamin B-12] Cyanocobalamin [Vitamin B-12] 1,000 mcg PO DAILY tab 02/13/23 Ferrous Gluconate [Fergon] 324 mg PO DAILYWM tab 02/13/23 Folic Acid 1 mg PO DAILY tab 02/13/23 Iron Bis-Glycinat/Vit C/FA/B12 1 cap PO MOWEFR 02/13/23 02/13/23 [Gentle Iron 28 mg Capsule] Loratadine [Claritin] 10 mg PO DAILY tab 02/13/23 - PHYSICAL EXAM AT DISCHARGE General Appearance: positive: No acute distress Eyes Bilateral: positive: Normal inspection Neck: positive: Nml inspection Respiratory: positive: Chest non-tender, No respiratory distress, Breath sounds nml Cardiovascular: positive: Regular rate & rhythm, No murmur, No gallop Abdomen: positive: Non-tender, No organomegaly, Nml bowel sounds, No distention Skin: positive: Color nml Extremities: positive: Non-tender, Full ROM Neurologic/Psychiatric: positive: Oriented x3, CN's nml (2-12), Motor nml - LABS Result Diagrams: 02/13/23 09:01 02/13/23 09:01 - DIAGNOSTIC IMAGING Diagnostic Imaging Results: Final report reviewed - SEPSIS Current Stage of Sepsis: Ruled out - FOLLOW UP Follow Up: Follow-up with PCP at previously scheduled appointment and follow-up with repeat labs in 2 days (Order provided by PCP prior to admission) - TIME SPENT Time Spent in Discharge (Minutes): 36
[2023-02-14] MEDS ORDERED: CHOLECALCIFEROL 25 MCG TABLET PO SCH (09:00)
[2023-02-14] MEDS ORDERED: FOLIC ACID 1 MG TABLET PO SCH (09:00)
== END 2023-02-13 18:00 | disposition home or self-care (01) | DRG 392 ==
LOC: ED 15:31 → MS2 19:30
PROVIDERS: ADMIT Internal Medicine; ATTEND Family Medicine Sports Medicine
DX: R11.2 Nausea with vomiting, unspecified (principal); E87.1 Hypo-osmolality and hyponatremia; R19.7 Diarrhea, unspecified; R51.9 Headache, unspecified; K44.9 Diaphragmatic hernia without obstruction or gangrene; E87.6 Hypokalemia; N17.9 Acute kidney failure, unspecified; D64.9 Anemia, unspecified; I25.10 Atherosclerotic heart disease of native coronary artery without angina pectoris; G47.33 Obstructive sleep apnea (adult) (pediatric); I10 Essential (primary) hypertension; G43.909 Migraine, unspecified, not intractable, without status migrainosus; G62.9 Polyneuropathy, unspecified; G43.709 Chronic migraine without aura, not intractable, without status migrainosus; K21.9 Gastro-esophageal reflux disease without esophagitis; G47.00 Insomnia, unspecified; F32.A Depression, unspecified; F41.9 Anxiety disorder, unspecified; M19.90 Unspecified osteoarthritis, unspecified site; R15.9 Full incontinence of feces; R32 Unspecified urinary incontinence; Z79.01 Long term (current) use of anticoagulants; Z86.718 Personal history of other venous thrombosis and embolism
CPT/HCPCS: 36415; 70450; 74177; 80048; 80053; 81003; 83690; 85025; 96374; 96375; 99285; A9270; Q9967; 81001; 87086; 87507

== ENCOUNTER 2023-02-27 09:25 | Inpatient (IN) | payer MEDICARE, OTHER ==
--- OUTSIDE RECORDS SUMMARY | 2023-02-27 09:39 | EXTERNAL MEDICAL SUMMARY RPT | Continuity of Care Document ---
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 Social History date description facility 2023-01-05 00:00 Never smoked tobacco ([facility]) [facility]
--- NOTE | 2023-02-27 10:14 | ED Physician Documentation ---
PD HPI NVD - Stated complaint Stated Complaint: N/V,GEN WEAKNESS - Chief complaint Chief Complaint: Abd Pain - History obtained from History obtained from: Patient - History of Present Illness Timing - onset: How many days ago (2-3) Timing - duration: Days Timing - details: Gradual onset, Still present Associated symptoms: Dizzy. No: Fever, Abdominal pain, Chest pain Contributing factors: No: Sick contact, Bad food Improved by: Laying still Worsened by: Eating Similar symptoms before: Diagnosis (had similar symptoms few weeks ago and seen in ER/hospitalized for hyponatremia. Seen in office by PCP afterward and had HCTZ stopped. No other change in meds.) Recently seen: Admitted (had hyponatremia recently with same symptoms. admitted to [facility] for this. Seen in office and had HCTZ stopped. No other new meds.) Review of Systems Constitutional: denies: Fever, Chills Nose: denies: Rhinorrhea / runny nose, Congestion Throat: denies: Sore throat Cardiac: denies: Chest pain / pressure, Palpitations Respiratory: denies: Dyspnea, Cough GI: reports: Nausea. denies: Abdominal Pain, Vomiting, Diarrhea : denies: Dysuria Neurologic: reports: Generalized weakness, Confused, Headache. denies: Focal weakness, Near syncope, Head injury Endocrine: denies: Polydypsia, Polyuria PD PAST MEDICAL HISTORY - Past Medical History Past Medical History: Yes Cardiovascular: Hypertension, Deep vein thrombosis Respiratory: Sleep apnea, CPAP use Neuro: Headaches, Migraines, Peripheral neuropathy Endocrine/Autoimmune: None GI: GERD, Hiatal hernia TRUCK HOPPER: None : None HEENT: None Psych: Depression, Anxiety Musculoskeletal: Osteoarthritis, Chronic back pain, Other Derm: Other - Past Surgical History Past Surgical History: Yes General: Colonoscopy, Other Ortho: Knee replacement, Arthroscopic surgery /TRUCK HOPPER: Tubal ligation, Hysterectomy Cardiovascular: CABG Neuro: Craniotomy HEENT: Tonsil/Adenoidectomy - Present Medications Home Medications: Ambulatory Orders Medication Instructions Recorded Confirmed Gabapentin 300 - 600 mg PO BID 09/08/15 02/27/23 Rivaroxaban [Xarelto] 20 mg PO QPM 09/08/15 02/27/23 Topiramate 25 - 75 mg PO BID 09/08/15 02/27/23 Vilazodone HCl [Viibryd] 40 mg PO DAILY 09/08/15 02/27/23 diphenhydrAMINE [Benadryl] 50 mg PO BID 03/11/20 02/27/23 Famotidine [Pepcid] 20 mg PO BID 09/01/21 02/27/23 Telmisartan 80 mg PO DAILY 02/12/23 02/27/23 buPROPion HCL [Bupropion Xl] 300 mg PO DAILY 02/12/23 02/27/23 Cholecalciferol [Vitamin D3] 25 mcg PO DAILY 02/13/23 02/27/23 Cyanocobalamin [Vitamin B-12] 1,000 mcg PO DAILY tab 02/13/23 02/27/23 Folic Acid 1 mg PO DAILY tab 02/13/23 02/27/23 Iron Bis-Glycinat/Vit C/FA/B12 1 cap PO MOWEFR 02/13/23 02/27/23 [Gentle Iron 28 mg Capsule] - Allergies Allergies/Adverse Reactions: Allergies Allergy/AdvReac Type Severity Reaction Status Date / Time codeine AdvReac Nausea Verified 02/27/23 09:33 - Social History Does the pt smoke?: No Smoking Status: Never smoker Does the pt drink ETOH?: No Does the pt have substance abuse?: No - Immunizations Immunizations are current?: Yes PD ED PE NORMAL - Vitals Vital signs reviewed: Yes - General General: Alert and oriented X 3, No acute distress, Well developed/nourished - HEENT HEENT: PERRL, EOMI, Moist mucous membranes, Pharynx benign - Neck Neck: Supple, no meningeal sign, No adenopathy - Cardiac Cardiac: RRR, No murmur - Respiratory Respiratory: Clear bilaterally - Abdomen Abdomen: Soft, Non tender Results - Vitals Vitals: Vital Signs - 24 hr 02/27/23 02/27/23 02/27/23 09:29 10:02 12:03 Temperature 36.0 C L Heart Rate 77 74 79 Respiratory 16 15 15 Rate Blood Pressure 156/74 H 134/72 H 144/72 H O2 Saturation 98 99 100 Oxygen O2 Source Room air - Labs Labs: Laboratory Tests 02/27/23 02/27/23 02/27/23 09:50 09:50 09:50 WBC 6.5 RBC 3.50 L Hgb 10.1 L Hct 30.3 L MCV 86.6 MCH 28.9 MCHC 33.3 RDW 12.6 Plt Count 285 MPV 9.2 Neut # (Auto) 5.4 Lymph # (Auto) 0.5 L [place] # (Auto) 0.5 Eos # (Auto) 0.1 Baso # (Auto) 0.0 Absolute Nucleated RBC 0.00 Nucleated RBC % 0.0 Sodium 122 L Potassium 3.9 Chloride 90 L Carbon Dioxide 24 Anion Gap 8.0 BUN 13 Creatinine 1.1 Estimated GFR (MDRD) 48 L Glucose 118 H Calcium 9.4 Magnesium 1.7 Total Bilirubin 0.8 AST 13 ALT 13 Alkaline Phosphatase 81 Total Protein 7.0 Albumin 4.2 Globulin 2.8 Albumin/Globulin Ratio 1.5 Lipase 15 TSH 4.54 Urine Color Urine Clarity Urine pH Ur Specific [place] Urine Protein Urine Glucose (UA) Urine Ketones Urine Occult Blood Urine Nitrite Urine Bilirubin Urine Urobilinogen Ur Leukocyte Esterase Ur Microscopic Review Urine Culture Comments Urine Sodium 02/27/23 02/27/23 12:51 12:51 WBC RBC Hgb Hct MCV MCH MCHC RDW Plt Count MPV Neut # (Auto) Lymph # (Auto) [place] # (Auto) Eos # (Auto) Baso # (Auto) Absolute Nucleated RBC Nucleated RBC % Sodium Potassium Chloride Carbon Dioxide Anion Gap BUN Creatinine Estimated GFR (MDRD) Glucose Calcium Magnesium Total Bilirubin AST ALT Alkaline Phosphatase Total Protein Albumin Globulin Albumin/Globulin Ratio Lipase TSH Urine Color LIGHT YELLOW Urine Clarity CLEAR Urine pH 7.5 Ur Specific [place] 1.010 Urine Protein NEGATIVE Urine Glucose (UA) NEGATIVE Urine Ketones TRACE Urine Occult Blood NEGATIVE Urine Nitrite NEGATIVE Urine Bilirubin NEGATIVE Urine Urobilinogen 1 (NORMAL) Ur Leukocyte Esterase NEGATIVE Ur Microscopic Review NOT INDICATED Urine Culture Comments NOT INDICATED Urine Sodium 64.0 PD Medical Decision Making - ED course Complexity details: reviewed results (sodium is low again at 122. Other electrolytes are okay. Renal function is impaired but close to/slightly better than prior trend level. ), considered differential (recently admitted for low sodium. Consider recurrence as most likley. However also consider other meds. No injury so not concussive. Not ill, so does not seem meningitic. Denies alcohol/toxins. ), d/w patient, d/w family (daughter is present with her and gives info of the confusion and lightheadedness.), d/w financial reporting consultant (Hospitalist) ED course: looking in [facility], meds that she is on that are associated with hyponatremia: Vilazodone and buproprrion Otherwise not clear the cause of her low sodium. Does not sound like excess water consumption. Is off diuretic. Had not had other change in meds. Consider endocrine and can check TSH, urine sodium. Had head CT at prior admission so not need for imaging there. Departure - Departure Disposition: [address] [facility]/Sv[facility] Clinical Impression: Hyponatremia Condition: Stable Discharge Date/Time: 02/27/23 13:46
[2023-02-27 10:16] LABS: BASOPHILS % (AUTO) 0.2 %; EOSINOPHILS # (AUTO) 0.1 10^3/uL (0.0-0.7); EOSINOPHILS % (AUTO) 0.9 %; HCT - HEMATOCRIT 30.3 % (37.0-47.0); HGB - HEMOGLOBIN 10.1 g/dL (12.0-16.0); LYMPHOCYTES # (AUTO) 0.5 10^3/uL (1.5-3.5); LYMPHOCYTES % (AUTO) 7.1 %; MEAN CORPUSCULAR HEMOGLOBIN 28.9 pg (27.0-31.0); MEAN CORPUSCULAR HGB CONC 33.3 g/dL (32.0-36.0); MEAN CORPUSCULAR VOLUME 86.6 fL (81.0-99.0); MEAN PLATELET VOLUME 9.2 fL (7.9-10.8); MONOCYTES # (AUTO) 0.5 10^3/uL (0.0-1.0); NEUTROPHILS # (AUTO) 5.4 10^3/uL (1.5-6.6); NEUTROPHILS % (AUTO) 83.3 %; PLT - PLATELET COUNT 285 10^3/uL (130-450); RED CELL DISTRIBUTION WIDTH 12.6 % (12.0-15.0); WHITE BLOOD COUNT 6.5 x10^3/uL (4.8-10.8)
[2023-02-27 10:21] LABS: ALBUMIN 4.2 g/dL (3.2-5.5); ALBUMIN/GLOBULIN RATIO 1.5 (1.0-2.2); BILIRUBIN,TOTAL 0.8 mg/dL (0.2-1.0); CALCIUM 9.4 mg/dL (8.5-10.3); CREATININE 1.1 mg/dL (0.6-1.3); POTASSIUM 3.9 mmol/L (3.5-4.5)
[2023-02-27 10:36] LABS: MAGNESIUM 1.7 mg/dL (1.7-2.3)
[2023-02-27] MEDS ORDERED: ONDANSETRON 4 MG/2 ML VIAL IVP STA (10:46)
[2023-02-27] MEDS ORDERED: SODIUM CHLORIDE 0.9% 1,000 ML IV STA (10:46)
[2023-02-27 10:51] LABS: THYROID STIMULATING HORMONE 4.54 uIU/mL (0.34-5.60)
[2023-02-27] MEDS ORDERED: PROCHLORPERAZINE 10 MG/2 ML VIAL IVP PRN (12:57)
[2023-02-27] MEDS ORDERED: SODIUM CHLORIDE FLUSH 0.9% 10 ML SYRINGE IVP PRN (12:57)
[2023-02-27] MEDS ORDERED: ONDANSETRON 4 MG/2 ML VIAL IVP PRN (12:57)
[2023-02-27 13:09] LABS: BILIRUBIN,URINE NEGATIVE (NEGATIVE); GLUCOSE, URINE (UA) NEGATIVE (NEGATIVE); KETONES,URINE (UA) TRACE mg/dL (NEGATIVE); LEUKOCYTE ESTERASE, URINE NEGATIVE (NEGATIVE); NITRITE,URINE NEGATIVE (NEGATIVE); OCCULT BLOOD,URINE NEGATIVE (NEGATIVE); PH,URINE 7.5 PH (5.0-7.5); PROTEIN,URINE NEGATIVE (NEGATIVE); UROBILINOGEN,URINE 1 (NORMAL) E.U./dL (NORMAL)
[2023-02-27 13:24] LABS: CLARITY,URINE CLEAR (CLEAR)
[2023-02-27] MEDS: SODIUM CHLORIDE 0.9% 1,000 ML IV SCH ×2 (14:05→21:34)
--- NOTE | 2023-02-27 14:41 | HISTORY & PHYSICAL EXAMINATION ---
Chief Complaint - Chief Complaint Chief Complaint: N/V x3 days History of Present Illness - Admitted From Admitted From:: ED - History Obtained From History obtained from: ED provider and the patient, and son & [id number] at bedside - History of Present Illness HPI Comment/Other: This is a 77-year-old female with a history of hypertension, depression and increasing frequent falls. She had an episode of nausea and vomiting after the fall in June 2022, did not seek medical attention for that fall. She then had another fall in the spring which caused a large hematoma on her back over the spine. In the last 1 month there have been about 2 falls, each 1 with reaching for something and then she loses her balance. She denies lightheadedness or vertigo. Her PCP is sending her to a physical therapist, concerned that this is a "balance problem" Three weeks ago the patient was admitted here for nausea and vomiting and was found to have sodium 123. She was given normal saline, improved symptomatically, was discharged with a sodium of 127. She subsequently has seen her PCP and her HCTZ was stopped. Three days ago she developed nausea and vomiting again, could only keep liquids down, was drinking water and a Gatorade powder mix. She has had loose BMs but denies diarrhea. Her son brought her to the ER today because of persistent N/V symptoms. She was again found to have a low sodium, today 122. The patient denies any fever, watery diarrhea, no recent travel, no exposure to people with nausea or vomiting. No new medications have been started. In the ER, patient has been started on iv normal saline and given antiemetics. The ED provider spoke to me about this patient. She will be admitted to the Hospitalist service for treating recurrent nausea and vomiting and recurrent hyponatremia. In reviewing her medication list, her 2 antidepre ssants, bupropion and Vilazadone can cause hyponatremia however she has been on both of these for over 2 years, and has not had hyponatremia until this year. I spoke to the patient about her CODE BLUE wishes and she wants to be a full code. History - Past Medical History Cardiovascular: reports: Hypertension, Deep vein thrombosis Respiratory: reports: Sleep apnea, CPAP use Neuro: reports: Headaches, Migraines, Peripheral neuropathy Endocrine/Autoimmune: reports: None GI: reports: GERD, Hiatal hernia LEGAL INVESTIGATOR: reports: None : reports: None HEENT: reports: None Psych: reports: Depression, Anxiety Musculoskeletal: reports: Osteoarthritis, Chronic back pain, Other Derm: reports: Other MRSA Hx?: No - Past Surgical History General: reports: Colonoscopy, Other Ortho: reports: Knee replacement, Arthroscopic surgery /LEGAL INVESTIGATOR: reports: Tubal ligation, Hysterectomy Cardiovascular: reports: CABG Neuro: reports: Craniotomy HEENT: reports: Tonsil/Adenoidectomy - Family & Social History Family History Comment/Other: Sister of pancreatic CA and was an alcoholic. Pt is second youngest of 5 children. Was born in [facility]. Living arrangement: At home Living Situation: With spouse/s.o. Social History Notes: Never smoked, rarely drinks alcohol, no illicit drug use. - Substance History Use: Uses substance without health or social issues: NONE Meds/Allgy - Home Medications Home Medications: Ambulatory Orders Medication Instructions Recorded Confirmed Gabapentin 300 - 600 mg PO BID 09/08/15 02/27/23 Rivaroxaban [Xarelto] 20 mg PO QPM 09/08/15 02/27/23 Topiramate 25 - 75 mg PO BID 09/08/15 02/27/23 Vilazodone HCl [Viibryd] 40 mg PO DAILY 09/08/15 02/27/23 diphenhydrAMINE [Benadryl] 50 mg PO BID 03/11/20 02/27/23 Famotidine [Pepcid] 20 mg PO BID 09/01/21 02/27/23 Telmisartan 80 mg PO DAILY 02/12/23 02/27/23 buPROPion HCL [Bupropion Xl] 300 mg PO DAILY 02/12/23 02/27/23 Cholecalciferol [Vitamin D3] 25 mcg PO DAILY 02/13/23 02/27/23 Cyanocobalamin [Vitamin B-12] 1,000 mcg PO DAILY tab 02/13/23 02/27/23 Folic Acid 1 mg PO DAILY tab 02/13/23 02/27/23 Iron Bis-Glycinat/Vit C/FA/B12 1 cap PO MOWEFR 02/13/23 02/27/23 [Gentle Iron 28 mg Capsule] - Allergies Allergies/Adverse Reactions: Allergies Allergy/AdvReac Type Severity Reaction Status Date / Time codeine AdvReac Nausea Verified 02/27/23 09:33 Review of Systems - Constitutional Constitutional: reports: Other (Chronic itching "internally" and everywhere, if she does not take daily Benadryl) - Gastrointestinal Gastrointestinal: reports: Nausea, Vomiting - Neurological Neurological: reports: Abnormal gait (from "poor balance" per pt, PT is to eval as outpt is still pending), Other (Numbness of feet and fingers and being treated for neuropathy with gabapentin, which only helps minimally) - Psychiatric Psychiatric: reports: Depression - Endocrine Endocrine: reports: Intolerance to cold - Hematologic/Lymphatic Hematologic/Lymphatic: reports: Anemia - All Other Systems All Other Systems: reports: Reviewed and negative Exam - Vital Signs Reviewed Vital Signs: Yes Vital Signs: Vital Signs x48h Temp Pulse Resp BP Pulse Ox 02/27/23 13:45 37 C 79 14 131/65 H 98 02/27/23 12:03 79 15 144/72 H 100 02/27/23 10:02 74 15 134/72 H 99 02/27/23 09:29 36.0 C L 77 16 156/74 H 98 - Physical Exam General Appearance: positive: No acute distress, Alert, Other (Obese, well kempt) Eyes Bilateral: positive: Normal inspection, EOMI ENT: positive: ENT inspection nml, No signs of dehydration Neck: positive: Nml inspection, No JVD Respiratory: positive: No respiratory distress, Breath sounds nml Cardiovascular: positive: Regular rate & rhythm, No murmur (Distant heart sounds due to morbid obesity and large breasts) Abdomen: positive: Non-tender, Nml bowel sounds, No distention (No guarding or rebound), Other (Obese with pannus) Skin: positive: Warm, Dry Extremities: positive: Non-tender, No pedal edema Neurologic/Psychiatric: positive: Oriented x3, Motor nml Conclusion/Plan - Problem List (1) Hyponatremia Conclusion/Plan: Patient has had 2 admissions for this in the past 3 weeks, both preceded by nausea and vomiting, both of them she can only keep down liquids so possibly she has "waterlogged". Another possibility is that she has SIADH since her urine sodium is excessively high for somebody with a low serum sodium (all labs were reviewed). Another possibility is that her 2 antidepressants have added to the low sodium however she has been on those for 2-years. Yet another possibility is hypothyroidism or cortisol deficiencyand she does describe being always cold. Plan: Admit the patient to inpatient status Continue with normal saline at 100 cc an hour. The goal will be to correct her serum sodium 6 to 8 mEq over the next 12 to 24 hours Follow serum sodium every 6 hours to avoid overcorrection Stop the 2 antidepressants. If she has SIADH, she may need referral to endocrine or nephrology Evaluate for hypothyroidism with a TSH Evaluate for adrenal insufficiency with an a.m. cortisol level and a Cortrosyn stimulation test. I reviewed with the patient and the family at the bedside, all these plans (2) Nausea vomiting and diarrhea Conclusion/Plan: Unclear if her low sodium is the cause of the nausea and vomiting or if her nausea and vomiting causes the low sodium Plan: Clear liquid diet Antiemetics as needed (3) Frequent falls Conclusion/Plan: The son brought up then the patient was able to give description of her 3 or 4 falls that she has had since June of this year. She feels like it is poor balance and that she needs to hold onto something, and happens when she is "overreaching". She denies vertigo or lightheadedness or tunnel vision when these happen Plan: We will ask for PT and OT evaluation Orthostatic VS to be checked Consider head CT if not recently done (4) History of DVT (deep vein thrombosis) Conclusion/Plan: The patient never had PEs by her description Plan: Continue with her usual anticoagulant (5) History of depression Conclusion/Plan: The patient is on 2 antidepressants to treat this and describes being stable. These doses have not been changed in over 2 years. There were other antidepressants tried before these 2 that did not work but she cannot remember the names Plan: Unfortunately we are stopping both medications since they could be adding to her low sodium levels I will speak with pharmacy to see if there is a choice of different antidepressant that will not give her the risk of producing low sodium (6) Anemia Conclusion/Plan: Her admission hemoglobin is 10. Plan: We will check B12, folate levels and iron stores and replace if low (7) KONSTANTIN on CPAP Conclusion/Plan: Will order her CPAP machine to be used here (8) Morbid obesity with BMI of 40.0-44.9, adult Conclusion/Plan: This complicates all her care. - Lab Results Fish Bones: 02/28/23 04:38 02/28/23 04:38 - Other Other Results/Comments: Attestation: The patient is expected to be hospitalized for greater than 2 mi dnights, and is expected to be discharged or transferred to another facility within 96 hours: Yes.
--- NOTE | 2023-02-27 16:28 | PHARMACY PROGRESS NOTE ---
- Best Possible Medication History Admit Date and Time: 02/27/23 1257 Processed by: Pharmacy Medication History completed: Yes Patient Interview: Completed Secondary Source(s): Insurance records As the person ultimately responsible for medication therapy, providers are able to order a medication from an existing home medication list in [facility] via the "Reconcile Routine" prior to Confirmation of that medication by customer support specialist. Such practice is discouraged except when the physician, in their clinical judgment, deems that a medical need exists for a medication without regard to previous use.
[2023-02-27] MEDS: SODIUM CHLORIDE FLUSH 0.9% 10 ML SYRINGE IVP SCH ×2 (16:56→23:57)
[2023-02-27] MEDS: FERROUS GLUCONATE 324 MG TABLET PO SCH (19:04)
[2023-02-27] MEDS: FAMOTIDINE 20 MG TABLET PO SCH (21:34)
[2023-02-27] MEDS: TOPIRAMATE 25 MG TABLET PO SCH ×2 (21:34→21:35)
[2023-02-27] MEDS: APIXABAN 5 MG TABLET PO SCH (21:35)
[2023-02-27] MEDS: diphenhydrAMINE 25 MG CAPSULE PO SCH (21:35)
[2023-02-27] MEDS: GABAPENTIN 300 MG CAPSULE PO SCH (21:36)
[2023-02-27] MEDS ORDERED: ZOLPIDEM 5 MG TABLET PO ONE (22:00)
[2023-02-28 05:17] LABS: BASOPHILS % (AUTO) 0.4 %; EOSINOPHILS # (AUTO) 0.1 10^3/uL (0.0-0.7); EOSINOPHILS % (AUTO) 2.4 %; HCT - HEMATOCRIT 26.3 % (37.0-47.0); HGB - HEMOGLOBIN 8.8 g/dL (12.0-16.0); LYMPHOCYTES # (AUTO) 0.7 10^3/uL (1.5-3.5); LYMPHOCYTES % (AUTO) 13.2 %; MEAN CORPUSCULAR HEMOGLOBIN 28.9 pg (27.0-31.0); MEAN CORPUSCULAR HGB CONC 33.5 g/dL (32.0-36.0); MEAN CORPUSCULAR VOLUME 86.2 fL (81.0-99.0); MONOCYTES # (AUTO) 0.7 10^3/uL (0.0-1.0); NEUTROPHILS # (AUTO) 3.6 10^3/uL (1.5-6.6); NEUTROPHILS % (AUTO) 70.8 %; PLT - PLATELET COUNT 240 10^3/uL (130-450); RED BLOOD COUNT 3.05 10^6/uL (4.20-5.40); RED CELL DISTRIBUTION WIDTH 12.9 % (12.0-15.0); WHITE BLOOD COUNT 5.1 x10^3/uL (4.8-10.8)
[2023-02-28 05:37] LABS: CALCIUM 8.6 mg/dL (8.5-10.3); CREATININE 1.1 mg/dL (0.6-1.3); POTASSIUM 3.9 mmol/L (3.5-4.5)
[2023-02-28] MEDS: SODIUM CHLORIDE 0.9% 1,000 ML IV SCH (07:48)
[2023-02-28] MEDS: FAMOTIDINE 20 MG TABLET PO SCH ×2 (08:29→21:21)
[2023-02-28] MEDS: GABAPENTIN 300 MG CAPSULE PO SCH ×2 (08:29→21:21)
[2023-02-28] MEDS: APIXABAN 5 MG TABLET PO SCH ×2 (08:30→21:21)
[2023-02-28] MEDS: LOSARTAN 50 MG TABLET PO SCH (08:30)
[2023-02-28] MEDS: FOLIC ACID 1 MG TABLET PO SCH (08:30)
[2023-02-28] MEDS: diphenhydrAMINE 25 MG CAPSULE PO SCH ×2 (08:30→21:21)
[2023-02-28] MEDS: SODIUM CHLORIDE FLUSH 0.9% 10 ML SYRINGE IVP SCH ×2 (08:31→17:58)
[2023-02-28] MEDS ORDERED: COSYNTROPIN 0.25 MG VIAL IM ONE (09:05)
--- NOTE | 2023-02-28 13:15 | PROVIDER PROGRESS NOTE ---
Assessment/Plan - Problem List (1) Hyponatremia Assessment/Plan: Patient has had 2 admissions for this in the past 3 weeks, both preceded by nausea and vomiting. So it was unknown if the vomiting caused the hyponatremia or if hyponatremia was so severe that it gave nausea and vomit. (all labs were reviewed) Yesterday serum sodium was 122 at presentation. She has received iv NS. We are following her serum sodium every 8 hours, and it has risen slowly, as desired, it is 127 today (therefore not more than 8 mEq over 24 hours). Plan: Follow serum sodium every 8 hours for another day, to avoid overcorrection and demyelination syndrome Today I will stop the IV NS, since by giving her the Cortrosyn, it will now stimulate her to hold onto sodium, and could cause over-rapid correction. Tomorrow I will start her on a salt tablet daily and start a free water restriction We will also check her serum osmolality and urine osmolality to confirm my suspicion of SIADH. Then she may need a loop diuretic started after the salt tablet has been given for a day, while we follow the serum Na. Goal sodium will be 130 (2) SIADH (syndrome of inappropriate ADH production) Assessment/Plan: I suspect she has SIADH since her urine sodium is excessively high for somebody with a low serum sodium (all labs were reviewed). Another possibility is that her 2 SSRI antidepressants have caused the hyponatremia, however she has been on those for >2-years. Yet another possibility is hypothyroidism or cortisol deficiency, and she does describe being always cold. We checked her TSH and it came back normal, ruling out Hypothyroidism. Today she also had a morning cortisol level and a Cortrosyn stimulation test which showed she raises her cortisone to greater than 18 therefore she does not have adrenal insufficiency. Plan: Follow serum sodium every 8 hours to avoid overcorrection It is necessary to resume the 2 SSRI antidepressants, since she is getting the headache which she gets w/out her meds, and and is getting tearful today, without the morning doses. These will be labeled drugs that CANNOT BE DISCONTINUED as we treat the underlying SIADH. As in #1: Stop IV NS today to avoid overcorrection from Cortrosyn being given, start salt tablet tomorrow, follow sodium daily after the salt tablet, start a free water restriction, if sodium drops again she will need loop diuretic started. I updated the son at bedside re all the W/U results and the plan (3) N/V Conclusion/Plan: RESOLVED There never really was diarrhea, just N/V for 3 days She has no BM since being here. Her nausea and vomiting have completely dissipated, as her sodium is correcting. Now suspect that the nausea and vomiting was a secondary symptom and the Hypon atremia was the primary problem Plan: I will advance her diet today (4) Frequent falls Conclusion/Plan: She has had 3 or 4 falls since June of this year. She feels like it is poor balance and that she needs to hold onto something, and happens when she is "overreaching". She denies vertigo or lightheadedness or tunnel vision when these happen. "Poor balance" could be from Hyponatremia as well. Plan: We will ask for PT and OT evaluation Orthostatic VS to be checked as she ambulates more (5) Depression Conclusion/Plan: The patient was on 2 SSRI antidepressants to treat her depression and describes being stable. These doses have not been changed in over 2 years. There were other antidepressants tried before these 2 that did not work but she cannot remember the names Plan: It is necessary to resume the 2 SSRI antidepressants, since she is getting the headache which she gets w/out her meds, and and is getting tearful today, without the morning doses. These will be labeled drugs that CANNOT BE DISCONTINUED as we treat the underlying SIADH. (6) Iron deficiency anemia Conclusion/Plan: Her admission hemoglobin is 10. Her B12 and folate levels came back adequate but her iron stores are low. Her med list is reconciled and she is on a daily iron tablet. She told me today that when she was in [place] as a young adult, she needed frequent IV iron infusions Plan: We will order stool to check guaiac >> came back neg Continue her daily oral iron tablet I will order IV iron dextran x1 (7) History of DVT (deep vein thrombosis) Conclusion/Plan: The patient never had PEs by her description Plan: Continue with her usual anticoagulant (8) KONSTANTIN on CPAP Conclusion/Plan: Cont her CPAP machine to be used here (9) Morbid obesity with BMI of 40.0-44.9, adult Conclusion/Plan: This complicates all her care. - Current Meds Current Meds: Current Medications Generic Name Dose Route Start Last Admin Trade Name Freq PRN Reason Stop Dose Admin Apixaban 5 mg 02/27/23 21:00 02/28/23 08:30 Apixaban 5 Mg Tablet PO 5 mg BID PHILL Administration Diphenhydramine HCl 50 mg 02/27/23 21:00 02/28/23 08:30 Diphenhydramine 25 Mg Capsule PO 50 mg BID PHILL Administration Famotidine 20 mg 02/27/23 21:00 02/28/23 08:29 Famotidine 20 Mg Tablet PO 20 mg BID PHILL Administration Ferrous Gluconate 324 mg 02/27/23 18:29 02/27/23 19:04 Ferrous Gluconate 324 Mg Tablet PO 324 mg MOWEFR PHILL Administration Folic Acid 1 mg 02/28/23 09:00 02/28/23 08:30 Folic Acid 1 Mg Tablet PO 1 mg DAILY PHILL Administration Gabapentin 300 mg 02/28/23 09:00 02/28/23 08:29 Gabapentin 300 Mg Capsule PO 300 mg DAILY PHILL Administration Gabapentin 600 mg 02/27/23 21:00 02/27/23 21:36 Gabapentin 300 Mg Capsule PO 600 mg HS PHILL Administration Losartan Potassium 100 mg 02/28/23 09:00 02/28/23 08:30 Losartan 50 Mg Tablet PO 100 mg DAILY PHILL Administration Ondansetron HCl 4 mg 02/27/23 12:57 02/27/23 16:54 Ondansetron 4 Mg/2 Ml Vial IVP 4 mg Q4HR PRN Administration Nausea / Vomiting Sodium Chloride 10 ml 02/27/23 17:00 02/28/23 08:31 Sodium Chloride Flush 0.9% 10 Ml Syringe IVP 10 ml 0100,0900,1700 PHILL Administration Topiramate 25 mg 02/28/23 09:00 02/27/23 21:34 Topiramate 25 Mg Tablet PO 25 mg DAILY PHILL Administration Topiramate 75 mg 02/27/23 21:00 02/27/23 21:35 Topiramate 25 Mg Tablet PO 75 mg HS PHILL Administration - Lab Result Fish Bone Diagrams: 02/28/23 04:38 02/28/23 16:15 - Additional Planning My Orders: My Active Orders 02/27/23 12:57 Ondansetron Inj [Zofran Inj] 4 mg IVP Q4HR PRN Prochlorperazine Inj [Compazine Inj] 10 mg IVP Q6HR PRN Sodium Chloride Flush 0.9% [Normal Saline Flush 0.9%] 10 ml IVP PRN PRN 02/27/23 12:58 Activity Orders [RC] Q2HR IO [RC] IOSHIFT Initiate Bowel Care Protocol [RC] .protocol Initiate Personal Care Protoco [RC] .protocol Oxygen Therapy [RC] .PRN Vital Signs [RC] 0800,1600,0000 Code Status [OTHERS] Routine Condition of Patient [OTHERS] Routine DVT Prophylaxis [OTHERS] Routine 02/27/23 12:59 Daily Weight [RC] 0600 IV Insert [RC] .ONCE 02/27/23 13:00 Initiate Line Care Protocol [RC] QSHIFT 02/27/23 17:00 Sodium Chloride Flush 0.9% [Normal Saline Flush 0.9%] 10 ml IVP 0100,0900,1700 02/27/23 18:29 Ferrous Gluconate [Fergon] 324 mg PO MOWEFR 02/27/23 21:00 Apixaban [Eliquis] 5 mg PO BID Famotidine [Pepcid] 20 mg PO BID Gabapentin [Neurontin] 600 mg PO HS Topiramate [Topamax] 75 mg PO HS diphenhydrAMINE [Benadryl] 50 mg PO BID 02/28/23 OSMOLALITY URINE [REFLAB] Stat Evaluate and Treat PT [PT] Routine 02/28/23 09:00 Folic Acid 1 mg PO DAILY Gabapentin [Neurontin] 300 mg PO DAILY Losartan [Cozaar] 100 mg PO DAILY Topiramate [Topamax] 25 mg PO DAILY 02/28/23 10:17 Orthostatic [Vital Signs - Orthostatic] [RC] QSHIFT 02/28/23 Lunch DIET [Soft (Low Fiber) Diet] [DIET] 02/28/23 13:00 buPROPion [Wellbutrin Xl] 300 mg PO DAILY 02/28/23 16:00 SODIUM [CHEM] Q8H 03/01/23 00:00 SODIUM [CHEM] Q8H 03/01/23 05:00 BMP - BASIC METABOLIC PANEL [CHEM] DAILYLAB 03/01/23 09:00 CORTISOL RESPONSE TO ACTH [IAI] DAILY 03/02/23 05:00 BMP - BASIC METABOLIC PANEL [CHEM] DAILYLAB Subjective - Subjective Patient Reports: Feeling Better, No Complaints Objective Vital Signs: Vital Signs - 24 hr 02/27/23 02/27/23 02/27/23 13:45 14:15 15:50 Temperature 37 C 36.4 C L 36.6 C Heart Rate 79 Heart Rate [ 76 71 Brachial] Respiratory 14 16 16 Rate Blood Pressure 131/65 H Blood Pressure 124/60 122/55 L [Right Brachial artery] O2 Saturation 98 98 98 02/27/23 02/28/23 23:52 07:41 Temperature 36.4 C L 36.9 C Heart Rate Heart Rate [ 83 77 Brachial] Respiratory 16 16 Rate Blood Pressure Blood Pressure 111/57 L 117/54 L [Right Brachial artery] O2 Saturation 97 96 Oxygen O2 Source Room air I&O (Last 24 Hrs): Intake and Output Totals x24h 02/26/23 02/27/23 02/28/23 23:59 23:59 23:59 Intake Total 2636.666 1381.667 Balance 2636.666 1381.667 General: Alert, Oriented x3 HEENT: Mucous membr. moist/pink Neck: Supple Neuro: Alert, Non Focal Cardiovascular: Regular rate Respiratory: No respiratory distress Abdomen: Soft, Other (Obese) Extremities: No clubbing, No edema, No tenderness/swelling - Results Results: Laboratory Results WBC 5.1 x10^3/uL (4.8-10.8) 02/28/23 04:38 RBC 3.05 10^6/uL (4.20-5.40) L 02/28/23 04:38 Hgb 8.8 g/dL (12.0-16.0) L 02/28/23 04:38 Hct 26.3 % (37.0-47.0) L 02/28/23 04:38 MCV 86.2 fL (81.0-99.0) 02/28/23 04:38 MCH 28.9 pg (27.0-31.0) 02/28/23 04:38 MCHC 33.5 g/dL (32.0-36.0) 02/28/23 04:38 RDW 12.9 % (12.0-15.0) 02/28/23 04:38 Plt Count 240 10^3/uL (130-450) 02/28/23 04:38 MPV 9.0 fL (7.9-10.8) 02/28/23 04:38 Neut # (Auto) 3.6 10^3/uL (1.5-6.6) 02/28/23 04:38 Lymph # (Auto) 0.7 10^3/uL (1.5-3.5) L 02/28/23 04:38 [place] # (Auto) 0.7 10^3/uL (0.0-1.0) 02/28/23 04:38 Eos # (Auto) 0.1 10^3/uL (0.0-0.7) 02/28/23 04:38 Baso # (Auto) 0.0 10^3/uL (0.0-0.1) 02/28/23 04:38 Absolute Nucleated RBC 0.00 x10^3/uL 02/28/23 04:38 Nucleated RBC % 0.0 /100WBC 02/28/23 04:38 Sodium 127 mmol/L (135-145) L 02/28/23 09:12 Potassium 3.9 mmol/L (3.5-4.5) 02/28/23 04:38 Chloride 99 mmol/L (101-111) L 02/28/23 04:38 Carbon Dioxide 23 mmol/L (21-32) 02/28/23 04:38 Anion Gap 5.0 (6-13) L 02/28/23 04:38 BUN 9 mg/dL (6-20) 02/28/23 04:38 Creatinine 1.1 mg/dL (0.6-1.3) 02/28/23 04:38 Estimated GFR (MDRD) 48 (>89) L 02/28/23 04:38 Glucose 98 mg/dL (74-104) 02/28/23 04:38 Calcium 8.6 mg/dL (8.5-10.3) 02/28/23 04:38 Magnesium 1.7 mg/dL (1.7-2.3) 02/27/23 09:50 Iron 24 ug/dL (50-212) L 02/28/23 04:38 TIBC 207 ug/dL (250-450) L 02/28/23 04:38 % Saturation 12 % (20-50) L 02/28/23 04:38 Transferrin 148 mg/dL (203-362) L 02/28/23 04:38 Total Bilirubin 0.8 mg/dL (0.2-1.0) 02/27/23 09:50 AST 13 IU/L (10-42) 02/27/23 09:50 ALT 13 IU/L (10-60) 02/27/23 09:50 Alkaline Phosphatase 81 IU/L (42-121) 02/27/23 09:50 Total Protein 7.0 g/dL (6.4-8.9) 02/27/23 09:50 Albumin 4.2 g/dL (3.2-5.5) 02/27/23 09:50 Globulin 2.8 g/dL (2.1-4.2) 02/27/23 09:50 Albumin/Globulin Ratio 1.5 (1.0-2.2) 02/27/23 09:50 Lipase 15 U/L (11-82) 02/27/23 09:50 Vitamin B12 768 pg/mL (180-914) 02/28/23 04:38 Folate 23.5 ng/mL (5.90 - >24.8) 02/28/23 04:38 TSH 4.54 uIU/mL (0.34-5.60) 02/27/23 09:50 Cortisol AM Sample 16.7 ug/dL 02/28/23 09:12 Cortisol Resp to ACTH 02/28/23 09:53 Urine Color LIGHT YELLOW 02/27/23 12:51 Urine Clarity CLEAR (CLEAR) 02/27/23 12:51 Urine pH 7.5 PH (5.0-7.5) 02/27/23 12:51 Ur Specific [place] 1.010 (1.002-1.030) 02/27/23 12:51 Urine Protein NEGATIVE mg/dL (NEGATIVE) 02/27/23 12:51 Urine Glucose (UA) NEGATIVE mg/dL (NEGATIVE) 02/27/23 12:51 Urine Ketones TRACE mg/dL (NEGATIVE) 02/27/23 12:51 Urine Occult Blood NEGATIVE (NEGATIVE) 02/27/23 12:51 Urine Nitrite NEGATIVE (NEGATIVE) 02/27/23 12:51 Urine Bilirubin NEGATIVE (NEGATIVE) 02/27/23 12:51 Urine Urobilinogen 1 (NORMAL) E.U./dL (NORMAL) 02/27/23 12:51 Ur Leukocyte Esterase NEGATIVE (NEGATIVE) 02/27/23 12:51 Ur Microscopic Review NOT INDICATED 02/27/23 12:51 Urine Culture Comments NOT INDICATED 02/27/23 12:51 Urine Sodium 64.0 mmol/L 02/27/23 12:51 - Procedures Procedures: Procedures EXCISION OF UTERUS, ENDO, DIAGN (05/18/16) EXTRACTION OF ENDOMETRIUM, ENDO, DIAGN (05/18/16) REPAIR PELVIC SUBCU/FASCIA, OPEN APPROACH (06/28/17) REPAIR URETHRA, VIA NATURAL OR ARTIFICIAL OPENING (06/28/17) RESECTION OF BI FALLOPIAN TUBE, VIA OPENING W PERC ENDO (06/28/17) RESECTION OF BILATERAL OVARIES, VIA OPENING W PERC ENDO (06/28/17) RESECTION OF UTERUS, VIA OPENING W PERC ENDO (06/28/17)
[2023-02-28] MEDS: buPROPion XL 150 MG TABLET PO SCH (13:20)
[2023-02-28] MEDS: TOPIRAMATE 25 MG TABLET PO SCH (21:21)
[2023-03-01 05:30] LABS: CALCIUM 8.9 mg/dL (8.5-10.3); CREATININE 1.1 mg/dL (0.6-1.3); POTASSIUM 3.9 mmol/L (3.5-4.5)
[2023-03-01] MEDS: SODIUM CHLORIDE FLUSH 0.9% 10 ML SYRINGE IVP SCH ×3 (05:56→16:21)
[2023-03-01] MEDS: APIXABAN 5 MG TABLET PO SCH ×2 (07:48→20:20)
[2023-03-01] MEDS: FOLIC ACID 1 MG TABLET PO SCH (07:49)
[2023-03-01] MEDS: buPROPion XL 150 MG TABLET PO SCH (07:49)
[2023-03-01] MEDS: GABAPENTIN 300 MG CAPSULE PO SCH ×2 (07:49→20:20)
[2023-03-01] MEDS: FAMOTIDINE 20 MG TABLET PO SCH ×2 (07:49→20:20)
[2023-03-01] MEDS: diphenhydrAMINE 25 MG CAPSULE PO SCH ×2 (07:49→20:20)
[2023-03-01] MEDS: LOSARTAN 50 MG TABLET PO SCH (07:49)
[2023-03-01] MEDS: TOPIRAMATE 25 MG TABLET PO SCH ×2 (07:49→20:20)
[2023-03-01] MEDS: VIIBRYD PO SCH (07:50)
[2023-03-01] MEDS: SODIUM CHLORIDE 1 GM TABLET PO SCH (08:48)
[2023-03-01] MEDS ORDERED: IRON DEXTRAN 1,000 MG in SODIUM CHLORIDE 0.9% 250 ML IV ONE (09:30)
[2023-03-01] MEDS ORDERED: ZOLPIDEM 5 MG TABLET PO PRN (10:14)
[2023-03-01] MEDS: FERROUS GLUCONATE 324 MG TABLET PO SCH (18:31)
[2023-03-01] MEDS ORDERED: ACETAMINOPHEN 325 MG TABLET PO PRN (19:18)
--- NOTE | 2023-03-01 19:43 | PROVIDER PROGRESS NOTE ---
Supervisor Forming And Tempering Note - Supervisor Forming And Tempering Note Supervisor Forming And Tempering Note: Patient complaining of headache Tylenol 650 mg po q 6 hrs prn mild pain, headache or fever ordered
[2023-03-02] MEDS: SODIUM CHLORIDE FLUSH 0.9% 10 ML SYRINGE IVP SCH ×3 (00:26→21:02)
[2023-03-02 05:23] LABS: CALCIUM 8.9 mg/dL (8.5-10.3); CREATININE 1.2 mg/dL (0.6-1.3)
[2023-03-02] MEDS: VIIBRYD PO SCH (08:44)
[2023-03-02] MEDS: diphenhydrAMINE 25 MG CAPSULE PO SCH ×2 (08:44→21:01)
[2023-03-02] MEDS: TOPIRAMATE 25 MG TABLET PO SCH ×2 (08:45→21:02)
[2023-03-02] MEDS: FOLIC ACID 1 MG TABLET PO SCH (08:45)
[2023-03-02] MEDS: APIXABAN 5 MG TABLET PO SCH ×2 (08:45→21:02)
[2023-03-02] MEDS: GABAPENTIN 300 MG CAPSULE PO SCH ×2 (08:45→21:02)
[2023-03-02] MEDS: FAMOTIDINE 20 MG TABLET PO SCH ×2 (08:46→21:02)
[2023-03-02] MEDS: SODIUM CHLORIDE 1 GM TABLET PO SCH (08:46)
[2023-03-02] MEDS: buPROPion XL 150 MG TABLET PO SCH (08:46)
[2023-03-02] MEDS: LOSARTAN 50 MG TABLET PO SCH (08:46)
[2023-03-02] MEDS: FUROSEMIDE 20 MG TABLET PO SCH ×2 (09:39→14:50)
--- NOTE | 2023-03-02 19:12 | PROVIDER PROGRESS NOTE ---
Assessment/Plan - Problem List (1) Hyponatremia Assessment/Plan: Patient has had 2 admissions for this in the past 3 weeks, both preceded by nausea and vomiting. So it was unknown if the vomiting caused the hyponatremia or if hyponatremia was so severe that it gave nausea and vomit. (all labs were reviewed) Yesterday serum sodium was 122 at presentation. She has received iv NS. We are following her serum sodium every 8 hours, and it has risen slowly, as desired, it is 127 today (therefore not more than 8 mEq over 24 hours). Plan: Follow serum sodium every 12-24 hours to avoid overcorrection and demyelination syndrome I stopped the IV NS, since by giving her the Cortrosyn, it will now stimulate he r to hold onto sodium, and could cause over-rapid correction. Cont a salt tablet daily and cont a free water restriction and start Lasix BID We will also check her serum osmolality and urine osmolality to confirm my suspicion of SIADH. Goal sodium will be 130 (2) SIADH (syndrome of inappropriate ADH production) Assessment/Plan: She has SIADH since her urine sodium is excessively high for somebody with a low serum sodium (all labs were reviewed). Another possibility is that her 2 SSRI antidepressants have caused the hyponatremia, however she has been on those for >2-years. Yet another possibility was hypothyroidism or cortisol deficiency, and she does describe being always cold. We checked her TSH and it came back normal, ruling out Hypothyroidism. She also had a morning cortisol level and a Cortrosyn stimulation test which showed she raises her cortisone to greater than 18 therefore she does not have adrenal insufficiency. Plan: Follow serum sodium daily It was necessary to resume the 2 SSRI antidepressants, since she was getting the headache which she gets w/out her meds, and and was getting tearful, without the morning doses. These will be labeled drugs that CANNOT BE DISCONTINUED as we treat the underlying SIADH. As in #1: Stop IV NS today to avoid overcorrection from Cortrosyn being given, start salt tablet, follow sodium daily after the salt tablet, cont a free water restriction, start loop diuretic. I updated the son at bedside re all the W/U results and the plan (3) N/V Conclusion/Plan: RESOLVED There never really was diarrhea, just N/V for 3 days. She has no BM since being here. Her nausea and vomiting have completely dissipated, as her sodium is correcting. Now suspect that the nausea and vomiting was a secondary symptom and the Hyponatremia was the primary problem Plan: I advanced her diet (4) Frequent falls Conclusion/Plan: She has had 3 or 4 falls since June of this year. She feels like it is poor balance and that she needs to hold onto something, and happens when she is "overreaching". She denies vertigo or lightheadedness or tunnel vision when these happen. "Poor balance" could be from Hyponatremia as well. PT and OT evaluations indicates she is independent Plan: Orthostatic VS to be checked as she ambulates more (5) Depression Conclusion/Plan: The patient was on 2 SSRI antidepressants to treat her depression and describes being stable. These doses have not been changed in over 2 years. There were other antidepressants tried before these 2 that did not work but she cannot remember the names Plan: It was necessary to resume the 2 SSRI antidepressants, since she was getting the headache which she gets w/out her meds, and and was getting tearful, without the morning doses. These will be labeled drugs that CANNOT BE DISCONTINUED as we treat the underlying SIADH. (6) Iron deficiency anemia Conclusion/Plan: Her admission hemoglobin is 10. Her B12 and folate levels came back adequate but her iron stores are low. Her med list is reconciled and she is on a daily iron tablet. She told me that when she was in [place] as a young adult, she needed frequent IV iron infusions I ordered IV iron dextran x1 I ordered stool to check guaiac >> came back neg Plan: Continue her daily oral iron tablet (7) History of DVT (deep vein thrombosis) Conclusion/Plan: The patient never had PEs by her description Plan: Continue with her usual anticoagulant (8) KONSTANTIN on CPAP Conclusion/Plan: Cont her CPAP machine to be used here (9) Morbid obesity with BMI of 40.0-44.9, adult Conclusion/Plan: This complicates all her care. - Current Meds Current Meds: Current Medications Generic Name Dose Route Start Last Admin Trade Name Freq PRN Reason Stop Dose Admin Acetaminophen 650 mg 03/01/23 19:18 03/01/23 19:37 Acetaminophen 325 Mg Tablet PO 650 mg Q6H PRN Administration Pain or Fever > 38C (100.4F) Apixaban 5 mg 02/27/23 21:00 03/02/23 08:45 Apixaban 5 Mg Tablet PO 5 mg BID PHILL Administration Bupropion HCl 300 mg 02/28/23 13:00 03/02/23 08:46 Bupropion Xl 150 Mg Tablet PO 300 mg DAILY PHILL Administration Diphenhydramine HCl 50 mg 02/27/23 21:00 03/02/23 08:44 Diphenhydramine 25 Mg Capsule PO 50 mg BID PHILL Administration Famotidine 20 mg 02/27/23 21:00 03/02/23 08:46 Famotidine 20 Mg Tablet PO 20 mg BID PHILL Administration Ferrous Gluconate 324 mg 02/27/23 18:29 03/01/23 18:31 Ferrous Gluconate 324 Mg Tablet PO 324 mg MOWEFR PHILL Administration Furosemide 20 mg 03/02/23 09:10 03/02/23 14:50 Furosemide 20 Mg Tablet PO 20 mg 0800,1500 PHILL Administration Gabapentin 300 mg 02/28/23 09:00 03/02/23 08:45 Gabapentin 300 Mg Capsule PO 300 mg DAILY PHILL Administration Gabapentin 600 mg 02/27/23 21:00 03/01/23 20:20 Gabapentin 300 Mg Capsule PO 600 mg HS PHILL Administration Losartan Potassium 100 mg 02/28/23 09:00 03/02/23 08:46 Losartan 50 Mg Tablet PO 100 mg DAILY PHILL Administration Ondansetron HCl 4 mg 02/27/23 12:57 02/27/23 16:54 Ondansetron 4 Mg/2 Ml Vial IVP 4 mg Q4HR PRN Administration Nausea / Vomiting Patient Own Med ( 1 each 03/01/23 09:00 03/02/23 08:44 Viibryd) PO 1 each DAILY PHILL Administration Sodium Chloride 10 ml 02/27/23 17:00 03/02/23 08:46 Sodium Chloride Flush 0.9% 10 Ml Syringe IVP 10 ml 0100,0900,1700 PHILL Administration Sodium Chloride 1 gm 03/01/23 09:00 03/02/23 08:46 Sodium Chloride 1 Gm Tablet PO 1 gm DAILY PHILL Administration Topiramate 25 mg 02/28/23 09:00 03/02/23 08:45 Topiramate 25 Mg Tablet PO 25 mg DAILY PHILL Administration Topiramate 75 mg 02/27/23 21:00 03/01/23 20:20 Topiramate 25 Mg Tablet PO 75 mg HS PHILL Administration - Lab Result Fish Bone Diagrams: 03/03/23 05:06 03/03/23 05:06 - Additional Planning My Orders: My Active Orders 03/02/23 09:10 Furosemide [Lasix] 20 mg PO 0800,1500 03/03/23 05:00 BMP - BASIC METABOLIC PANEL [CHEM] DAILYLAB CBC W/O DIFF (HEMOGRAM) [HEME] DAILYLAB Subjective - Subjective Patient Reports: Feeling Better, Resting Comfortably, No Complaints Objective Vital Signs: Vital Signs - 24 hr 03/01/23 03/02/23 03/02/23 23:50 08:00 15:32 Temperature 36.4 C L 36.7 C 36.4 C L Heart Rate [ 66 96 75 Brachial] Respiratory 16 18 18 Rate Blood Pressure 113/53 L 127/54 L 127/79 [Right Brachial artery] O2 Saturation 96 96 99 Oxygen O2 Source Room air I&O (Last 24 Hrs): Intake and Output Totals x24h 02/28/23 03/01/23 03/02/23 23:59 23:59 23:59 Intake Total 2796.667 1553 130 Output Total 500 1400 550 Balance 2296.667 153 -420 General: Alert, Oriented x3, Other (Obese) HEENT: Atraumatic, EOMI Neck: Supple, No JVD Neuro: Alert, Non Focal Cardiovascular: Regular rate, No murmurs Respiratory: No respiratory distress, Breath sounds nml Abdomen: Normal bowel sounds, Soft Extremities: No clubbing, No edema, No tenderness/swelling - Results Results: Laboratory Results WBC 5.1 x10^3/uL (4.8-10.8) 02/28/23 04:38 RBC 3.05 10^6/uL (4.20-5.40) L 02/28/23 04:38 Hgb 9.9 g/dL (12.0-16.0) L 03/02/23 14:59 Hct 26.3 % (37.0-47.0) L 02/28/23 04:38 MCV 86.2 fL (81.0-99.0) 02/28/23 04:38 MCH 28.9 pg (27.0-31.0) 02/28/23 04:38 MCHC 33.5 g/dL (32.0-36.0) 02/28/23 04:38 RDW 12.9 % (12.0-15.0) 02/28/23 04:38 Plt Count 240 10^3/uL (130-450) 02/28/23 04:38 MPV 9.0 fL (7.9-10.8) 02/28/23 04:38 Neut # (Auto) 3.6 10^3/uL (1.5-6.6) 02/28/23 04:38 Lymph # (Auto) 0.7 10^3/uL (1.5-3.5) L 02/28/23 04:38 [place] # (Auto) 0.7 10^3/uL (0.0-1.0) 02/28/23 04:38 Eos # (Auto) 0.1 10^3/uL (0.0-0.7) 02/28/23 04:38 Baso # (Auto) 0.0 10^3/uL (0.0-0.1) 02/28/23 04:38 Absolute Nucleated RBC 0.00 x10^3/uL 02/28/23 04:38 Nucleated RBC % 0.0 /100WBC 02/28/23 04:38 Sodium 131 mmol/L (135-145) L 03/02/23 14:59 Potassium 4.0 mmol/L (3.5-4.5) 03/02/23 04:45 Chloride 101 mmol/L (101-111) 03/02/23 04:45 Carbon Dioxide 23 mmol/L (21-32) 03/02/23 04:45 Anion Gap 5.0 (6-13) L 03/02/23 04:45 BUN 12 mg/dL (6-20) 03/02/23 04:45 Creatinine 1.2 mg/dL (0.6-1.3) 03/02/23 04:45 Estimated GFR (MDRD) 44 (>89) L 03/02/23 04:45 Glucose 99 mg/dL (74-104) 03/02/23 04:45 Calcium 8.9 mg/dL (8.5-10.3) 03/02/23 04:45 Magnesium 1.7 mg/dL (1.7-2.3) 02/27/23 09:50 Iron 24 ug/dL (50-212) L 02/28/23 04:38 TIBC 207 ug/dL (250-450) L 02/28/23 04:38 % Saturation 12 % (20-50) L 02/28/23 04:38 Transferrin 148 mg/dL (203-362) L 02/28/23 04:38 Total Bilirubin 0.8 mg/dL (0.2-1.0) 02/27/23 09:50 AST 13 IU/L (10-42) 02/27/23 09:50 ALT 13 IU/L (10-60) 02/27/23 09:50 Alkaline Phosphatase 81 IU/L (42-121) 02/27/23 09:50 Total Protein 7.0 g/dL (6.4-8.9) 02/27/23 09:50 Albumin 4.2 g/dL (3.2-5.5) 02/27/23 09:50 Globulin 2.8 g/dL (2.1-4.2) 02/27/23 09:50 Albumin/Globulin Ratio 1.5 (1.0-2.2) 02/27/23 09:50 Lipase 15 U/L (11-82) 02/27/23 09:50 Vitamin B12 768 pg/mL (180-914) 02/28/23 04:38 Folate 23.5 ng/mL (5.90 - >24.8) 02/28/23 04:38 TSH 4.54 uIU/mL (0.34-5.60) 02/27/23 09:50 Cortisol AM Sample 16.7 ug/dL 02/28/23 09:12 Cortisol Resp to ACTH 02/28/23 09:53 Urine Color LIGHT YELLOW 02/27/23 12:51 Urine Clarity CLEAR (CLEAR) 02/27/23 12:51 Urine pH 7.5 PH (5.0-7.5) 02/27/23 12:51 Ur Specific [place] 1.010 (1.002-1.030) 02/27/23 12:51 Urine Protein NEGATIVE mg/dL (NEGATIVE) 02/27/23 12:51 Urine Glucose (UA) NEGATIVE mg/dL (NEGATIVE) 02/27/23 12:51 Urine Ketones TRACE mg/dL (NEGATIVE) 02/27/23 12:51 Urine Occult Blood NEGATIVE (NEGATIVE) 02/27/23 12:51 Urine Nitrite NEGATIVE (NEGATIVE) 02/27/23 12:51 Urine Bilirubin NEGATIVE (NEGATIVE) 02/27/23 12:51 Urine Urobilinogen 1 (NORMAL) E.U./dL (NORMAL) 02/27/23 12:51 Ur Leukocyte Esterase NEGATIVE (NEGATIVE) 02/27/23 12:51 Ur Microscopic Review NOT INDICATED 02/27/23 12:51 Urine Culture Comments NOT INDICATED 02/27/23 12:51 Urine Osmolality 277 mOsmol/kg (.) 02/28/23 15:42 Urine Sodium 64.0 mmol/L 02/27/23 12:51 - Procedures Procedures: Procedures EXCISION OF UTERUS, ENDO, DIAGN (05/18/16) EXTRACTION OF ENDOMETRIUM, ENDO, DIAGN (05/18/16) REPAIR PELVIC SUBCU/FASCIA, OPEN APPROACH (06/28/17) REPAIR URETHRA, VIA NATURAL OR ARTIFICIAL OPENING (06/28/17) RESECTION OF BI FALLOPIAN TUBE, VIA OPENING W PERC ENDO (06/28/17) RESECTION OF BILATERAL OVARIES, VIA OPENING W PERC ENDO (06/28/17) RESECTION OF UTERUS, VIA OPENING W PERC ENDO (06/28/17)
--- NOTE | 2023-03-02 19:12 | PROVIDER PROGRESS NOTE ---
Assessment/Plan - Problem List (1) Hyponatremia Assessment/Plan: Patient has had 2 admissions for this in the past 3 weeks, both preceded by nausea and vomiting. So it was unknown if the vomiting caused the hyponatremia or if hyponatremia was so severe that it gave nausea and vomit. (all labs were reviewed) Yesterday serum sodium was 122 at presentation. She has received iv NS. We are following her serum sodium every 8 hours, and it has risen slowly, as desired, it is 127 today (therefore not more than 8 mEq over 24 hours). Plan: Follow serum sodium every 8 hours for another day, to avoid overcorrection and demyelination syndrome Today I will stop the IV NS, since by giving her the Cortrosyn, it will now stimulate her to hold onto sodium, and could cause over-rapid correction. Tomorrow I will start her on a salt tablet daily and start a free water restriction We will also check her serum osmolality and urine osmolality to confirm my suspicion of SIADH. Then she may need a loop diuretic started after the salt tablet has been given for a day, while we follow the serum Na. Goal sodium will be 130 (2) SIADH (syndrome of inappropriate ADH production) Assessment/Plan: I suspect she has SIADH since her urine sodium is excessively high for somebody with a low serum sodium (all labs were reviewed). Another possibility is that her 2 SSRI antidepressants have caused the hyponatremia, however she has been on those for >2-years. Yet another possibility is hypothyroidism or cortisol deficiency, and she does describe being always cold. We checked her TSH and it came back normal, ruling out Hypothyroidism. Today she also had a morning cortisol level and a Cortrosyn stimulation test which showed she raises her cortisone to greater than 18 therefore she does not have adrenal insufficiency. Plan: Follow serum sodium every 8 hours to avoid overcorrection It is necessary to resume the 2 SSRI antidepressants, since she is getting the headache which she gets w/out her meds, and and is getting tearful today, without the morning doses. These will be labeled drugs that CANNOT BE DISCONTINUED as we treat the underlying SIADH. As in #1: Stop IV NS today to avoid overcorrection from Cortrosyn being given, start salt tablet tomorrow, follow sodium daily after the salt tablet, start a free water restriction, if sodium drops again she will need loop diuretic started. I updated the son at bedside re all the W/U results and the plan (3) N/V Conclusion/Plan: RESOLVED There never really was diarrhea, just N/V for 3 days She has no BM since being here. Her nausea and vomiting have completely dissipated, as her sodium is correcting. Now suspect that the nausea and vomiting was a secondary symptom and the Hypona tremia was the primary problem Plan: I will advance her diet today (4) Frequent falls Conclusion/Plan: She has had 3 or 4 falls since June of this year. She feels like it is poor balance and that she needs to hold onto something, and happens when she is "overreaching". She denies vertigo or lightheadedness or tunnel vision when these happen. "Poor balance" could be from Hyponatremia as well. Plan: We will ask for PT and OT evaluation Orthostatic VS to be checked as she ambulates more (5) Depression Conclusion/Plan: The patient was on 2 SSRI antidepressants to treat her depression and describes being stable. These doses have not been changed in over 2 years. There were other antidepressants tried before these 2 that did not work but she cannot remember the names Plan: It is necessary to resume the 2 SSRI antidepressants, since she is getting the headache which she gets w/out her meds, and and is getting tearful today, without the morning doses. These will be labeled drugs that CANNOT BE DISCONTINUED as we treat the underlying SIADH. (6) Iron deficiency anemia Conclusion/Plan: Her admission hemoglobin is 10. Her B12 and folate levels came back adequate but her iron stores are low. Her med list is reconciled and she is on a daily iron tablet. She told me today that when she was in [place] as a young adult, she needed frequent IV iron infusions Plan: We will order stool to check guaiac >> came back neg Continue her daily oral iron tablet I will order IV iron dextran x1 (7) History of DVT (deep vein thrombosis) Conclusion/Plan: The patient never had PEs by her description Plan: Continue with her usual anticoagulant (8) KONSTANTIN on CPAP Conclusion/Plan: Cont her CPAP machine to be used here (9) Morbid obesity with BMI of 40.0-44.9, adult Conclusion/Plan: This complicates all her care. - Current Meds Current Meds: Current Medications Generic Name Dose Route Start Last Admin Trade Name Freq PRN Reason Stop Dose Admin Acetaminophen 650 mg 09/13/23 19:18 03/01/23 19:37 Acetaminophen 325 Mg Tablet PO 650 mg Q6H PRN Administration Pain or Fever > 38C (100.4F) Apixaban 5 mg 02/27/23 21:00 03/02/23 08:45 Apixaban 5 Mg Tablet PO 5 mg BID PHILL Administration Bupropion HCl 300 mg 02/28/23 13:00 03/02/23 08:46 Bupropion Xl 150 Mg Tablet PO 300 mg DAILY PHILL Administration Diphenhydramine HCl 50 mg 02/27/23 21:00 03/02/23 08:44 Diphenhydramine 25 Mg Capsule PO 50 mg BID PHILL Administration Famotidine 20 mg 02/27/23 21:00 03/02/23 08:46 Famotidine 20 Mg Tablet PO 20 mg BID PHILL Administration Ferrous Gluconate 324 mg 02/27/23 18:29 03/01/23 18:31 Ferrous Gluconate 324 Mg Tablet PO 324 mg MOWEFR PHILL Administration Furosemide 20 mg 03/02/23 09:10 03/02/23 14:50 Furosemide 20 Mg Tablet PO 20 mg 0800,1500 PHILL Administration Gabapentin 300 mg 02/28/23 09:00 03/02/23 08:45 Gabapentin 300 Mg Capsule PO 300 mg DAILY PHILL Administration Gabapentin 600 mg 02/27/23 21:00 03/01/23 20:20 Gabapentin 300 Mg Capsule PO 600 mg HS PHILL Administration Losartan Potassium 100 mg 02/28/23 09:00 03/02/23 08:46 Losartan 50 Mg Tablet PO 100 mg DAILY PHILL Administration Ondansetron HCl 4 mg 02/27/23 12:57 02/27/23 16:54 Ondansetron 4 Mg/2 Ml Vial IVP 4 mg Q4HR PRN Administration Nausea / Vomiting Patient Own Med ( 1 each 03/01/23 09:00 03/02/23 08:44 Viibryd) PO 1 each DAILY PHILL Administration Sodium Chloride 10 ml 02/27/23 17:00 03/02/23 08:46 Sodium Chloride Flush 0.9% 10 Ml Syringe IVP 10 ml 0100,0900,1700 PHILL Administration Sodium Chloride 1 gm 03/01/23 09:00 03/02/23 08:46 Sodium Chloride 1 Gm Tablet PO 1 gm DAILY PHILL Administration Topiramate 25 mg 02/28/23 09:00 03/02/23 08:45 Topiramate 25 Mg Tablet PO 25 mg DAILY PHILL Administration Topiramate 75 mg 02/27/23 21:00 03/01/23 20:20 Topiramate 25 Mg Tablet PO 75 mg HS PHILL Administration - Lab Result Fish Bone Diagrams: 03/03/23 05:06 03/03/23 05:06 - Additional Planning My Orders: My Active Orders 03/02/23 09:10 Furosemide [Lasix] 20 mg PO 0800,1500 03/03/23 05:00 BMP - BASIC METABOLIC PANEL [CHEM] DAILYLAB CBC W/O DIFF (HEMOGRAM) [HEME] DAILYLAB Subjective - Subjective Patient Reports: Feeling Better, Other (Not nauseated, not groggy) Objective Vital Signs: Vital Signs - 24 hr 03/01/23 03/02/23 03/02/23 23:50 08:00 15:32 Temperature 36.4 C L 36.7 C 36.4 C L Heart Rate [ 66 96 75 Brachial] Respiratory 16 18 18 Rate Blood Pressure 113/53 L 127/54 L 127/79 [Right Brachial artery] O2 Saturation 96 96 99 Oxygen O2 Source Room air I&O (Last 24 Hrs): Intake and Output Totals x24h 02/28/23 03/01/23 03/02/23 23:59 23:59 23:59 Intake Total 2796.667 1553 130 Output Total 500 1400 550 Balance 2296.667 153 -420 General: Alert, Oriented x3 HEENT: Atraumatic, PERRLA Neck: Supple, No JVD Neuro: Alert, Non Focal Cardiovascular: Regular rate, No murmurs Respiratory: No respiratory distress, Breath sounds nml Abdomen: Normal bowel sounds, Soft Extremities: No clubbing, No edema, No tenderness/swelling - Results Results: Laboratory Results WBC 5.1 x10^3/uL (4.8-10.8) 02/28/23 04:38 RBC 3.05 10^6/uL (4.20-5.40) L 02/28/23 04:38 Hgb 9.9 g/dL (12.0-16.0) L 03/02/23 14:59 Hct 26.3 % (37.0-47.0) L 02/28/23 04:38 MCV 86.2 fL (81.0-99.0) 02/28/23 04:38 MCH 28.9 pg (27.0-31.0) 02/28/23 04:38 MCHC 33.5 g/dL (32.0-36.0) 02/28/23 04:38 RDW 12.9 % (12.0-15.0) 02/28/23 04:38 Plt Count 240 10^3/uL (130-450) 02/28/23 04:38 MPV 9.0 fL (7.9-10.8) 02/28/23 04:38 Neut # (Auto) 3.6 10^3/uL (1.5-6.6) 02/28/23 04:38 Lymph # (Auto) 0.7 10^3/uL (1.5-3.5) L 02/28/23 04:38 [place] # (Auto) 0.7 10^3/uL (0.0-1.0) 02/28/23 04:38 Eos # (Auto) 0.1 10^3/uL (0.0-0.7) 02/28/23 04:38 Baso # (Auto) 0.0 10^3/uL (0.0-0.1) 02/28/23 04:38 Absolute Nucleated RBC 0.00 x10^3/uL 02/28/23 04:38 Nucleated RBC % 0.0 /100WBC 02/28/23 04:38 Sodium 131 mmol/L (135-145) L 03/02/23 14:59 Potassium 4.0 mmol/L (3.5-4.5) 03/02/23 04:45 Chloride 101 mmol/L (101-111) 03/02/23 04:45 Carbon Dioxide 23 mmol/L (21-32) 03/02/23 04:45 Anion Gap 5.0 (6-13) L 03/02/23 04:45 BUN 12 mg/dL (6-20) 03/02/23 04:45 Creatinine 1.2 mg/dL (0.6-1.3) 03/02/23 04:45 Estimated GFR (MDRD) 44 (>89) L 03/02/23 04:45 Glucose 99 mg/dL (74-104) 03/02/23 04:45 Calcium 8.9 mg/dL (8.5-10.3) 03/02/23 04:45 Magnesium 1.7 mg/dL (1.7-2.3) 02/27/23 09:50 Iron 24 ug/dL (50-212) L 02/28/23 04:38 TIBC 207 ug/dL (250-450) L 02/28/23 04:38 % Saturation 12 % (20-50) L 02/28/23 04:38 Transferrin 148 mg/dL (203-362) L 02/28/23 04:38 Total Bilirubin 0.8 mg/dL (0.2-1.0) 02/27/23 09:50 AST 13 IU/L (10-42) 02/27/23 09:50 ALT 13 IU/L (10-60) 02/27/23 09:50 Alkaline Phosphatase 81 IU/L (42-121) 02/27/23 09:50 Total Protein 7.0 g/dL (6.4-8.9) 02/27/23 09:50 Albumin 4.2 g/dL (3.2-5.5) 02/27/23 09:50 Globulin 2.8 g/dL (2.1-4.2) 02/27/23 09:50 Albumin/Globulin Ratio 1.5 (1.0-2.2) 02/27/23 09:50 Lipase 15 U/L (11-82) 02/27/23 09:50 Vitamin B12 768 pg/mL (180-914) 02/28/23 04:38 Folate 23.5 ng/mL (5.90 - >24.8) 02/28/23 04:38 TSH 4.54 uIU/mL (0.34-5.60) 02/27/23 09:50 Cortisol AM Sample 16.7 ug/dL 02/28/23 09:12 Cortisol Resp to ACTH 02/28/23 09:53 Urine Color LIGHT YELLOW 02/27/23 12:51 Urine Clarity CLEAR (CLEAR) 02/27/23 12:51 Urine pH 7.5 PH (5.0-7.5) 02/27/23 12:51 Ur Specific [place] 1.010 (1.002-1.030) 02/27/23 12:51 Urine Protein NEGATIVE mg/dL (NEGATIVE) 02/27/23 12:51 Urine Glucose (UA) NEGATIVE mg/dL (NEGATIVE) 02/27/23 12:51 Urine Ketones TRACE mg/dL (NEGATIVE) 02/27/23 12:51 Urine Occult Blood NEGATIVE (NEGATIVE) 02/27/23 12:51 Urine Nitrite NEGATIVE (NEGATIVE) 02/27/23 12:51 Urine Bilirubin NEGATIVE (NEGATIVE) 02/27/23 12:51 Urine Urobilinogen 1 (NORMAL) E.U./dL (NORMAL) 02/27/23 12:51 Ur Leukocyte Esterase NEGATIVE (NEGATIVE) 02/27/23 12:51 Ur Microscopic Review NOT INDICATED 02/27/23 12:51 Urine Culture Comments NOT INDICATED 02/27/23 12:51 Urine Osmolality 277 mOsmol/kg (.) 02/28/23 15:42 Urine Sodium 64.0 mmol/L 02/27/23 12:51 - Procedures Procedures: Procedures EXCISION OF UTERUS, ENDO, DIAGN (05/18/16) EXTRACTION OF ENDOMETRIUM, ENDO, DIAGN (05/18/16) REPAIR PELVIC SUBCU/FASCIA, OPEN APPROACH (06/28/17) REPAIR URETHRA, VIA NATURAL OR ARTIFICIAL OPENING (06/28/17) RESECTION OF BI FALLOPIAN TUBE, VIA OPENING W PERC ENDO (06/28/17) RESECTION OF BILATERAL OVARIES, VIA OPENING W PERC ENDO (06/28/17) RESECTION OF UTERUS, VIA OPENING W PERC ENDO (06/28/17)
[2023-03-03] MEDS: SODIUM CHLORIDE FLUSH 0.9% 10 ML SYRINGE IVP SCH ×2 (01:14→07:59)
[2023-03-03 05:14] LABS: HCT - HEMATOCRIT 27.4 % (37.0-47.0); HGB - HEMOGLOBIN 8.9 g/dL (12.0-16.0); MEAN CORPUSCULAR HEMOGLOBIN 28.7 pg (27.0-31.0); MEAN CORPUSCULAR HGB CONC 32.5 g/dL (32.0-36.0); MEAN CORPUSCULAR VOLUME 88.4 fL (81.0-99.0); MEAN PLATELET VOLUME 8.9 fL (7.9-10.8); RED BLOOD COUNT 3.1 10^6/uL (4.20-5.40); RED CELL DISTRIBUTION WIDTH 13.2 % (12.0-15.0); WHITE BLOOD COUNT 5.3 x10^3/uL (4.8-10.8)
[2023-03-03 05:25] LABS: CALCIUM 9.1 mg/dL (8.5-10.3); CREATININE 1.3 mg/dL (0.6-1.3)
[2023-03-03] MEDS: SODIUM CHLORIDE 1 GM TABLET PO SCH (07:58)
[2023-03-03] MEDS: FUROSEMIDE 20 MG TABLET PO SCH (07:58)
[2023-03-03] MEDS: TOPIRAMATE 25 MG TABLET PO SCH (07:58)
[2023-03-03] MEDS: LOSARTAN 50 MG TABLET PO SCH (07:58)
[2023-03-03] MEDS: buPROPion XL 150 MG TABLET PO SCH (07:58)
[2023-03-03] MEDS: diphenhydrAMINE 25 MG CAPSULE PO SCH (07:58)
[2023-03-03] MEDS: GABAPENTIN 300 MG CAPSULE PO SCH (07:58)
[2023-03-03] MEDS: VIIBRYD PO SCH (07:59)
[2023-03-03] MEDS: FAMOTIDINE 20 MG TABLET PO SCH (07:59)
[2023-03-03] MEDS: APIXABAN 5 MG TABLET PO SCH (07:59)
[2023-03-03 08:07] VITALS: BP 118/59; O2SAT 99
--- NOTE | 2023-03-03 09:05 | Discharge Plan ---
Discharge Plan Problem Reviewed?: Yes Disposition: Home, Self Care Condition: Stable Prescriptions: Iron Bis-Glycinat/Vit C/FA/B12 [Gentle Iron 28 mg Capsule] 1 cap PO DAILY #30 cap Furosemide [Lasix] 20 mg PO 0800,1500 #60 tab Sodium Chloride [Salt Tab] 1 gm PO DAILY #30 tab Diet: Regular Activity Restrictions: Activity as Tolerated Shower Restrictions: No Driving Restrictions: No Instruction Topics: Hyponatremia Dc Ch Health Concerns: You were hospitalized for treating severe hyponatremia (low sodium), which had caused you to have recurrent nausea and vomiting and poor balance adding to falls. We found the cause is SIADH, probably caused by your use of 2 SSRI medications (Bupropion and Viibryd). Because these 2 mediccations need to be continued, your treatment for SIADH is to: salt your food liberally, take 1 salt tablet daily, take the water pill Lasix twice daily, and restrict your plain water intake. All other types of fluid are allowed ad sherry. Your new prescriptions were electronically sent to your [facility] pharmacy in [place]. Remember to stay off the HCTZ. Also you should be taking your iron pill daily not every other day (I ordered more in a refill). Also, you may discontinue your Folate pill, since you have no folate deficiency now on your blood tests. All your other medications may be continued. Please see your PCP in the next 5-10days for a hospital follow-up visit and you need repeat sodium blood testing. When you call your PCP office for an appointment, state that you were an inpatient and need follow-up as a priority. Plan of Treatment: As above. Care Goals: Improvement in symptoms and stabilization are the goals. Assessment: The patient understands and is agreeable with the plan. Additional Instructions or Follow Up instructions: If you have new or worsening symptoms, call your PCP for advice, or come to the ER. No Smoking: If you smoke, Please STOP! Call for help. Follow-up with: Maye Díaz PA [Primary Care Provider] -
--- NOTE | 2023-03-03 09:13 | DISCHARGE SUMMARY ---
Discharge Summary Admit Date: 02/27/23 Discharge Date: 03/03/23 Discharging Provider: Dr Elana Costello Primary Care Provider: ANNY Díaz Condition at Discharge: Stable Discharge Disposition: 01 Home, Self Care - HPI History of Present Illness: This is a 77-year-old female with a history of hypertension, depression and increasing frequent falls. She had an episode of nausea and vomiting after the fall in June 2022, did not seek medical attention for that fall. She then had another fall in the spring which caused a large hematoma on her back over the spine. In the last 1 month there have been about 2 falls, each 1 with reaching for something and then she loses her balance. She denies lightheadedness or vertigo. Her PCP is sending her to a physical therapist, concerned that this is a "balance problem" Three weeks ago the patient was admitted here for nausea and vomiting and was found to have sodium 123. She was given normal saline, improved symptomatically, was discharged with a sodium of 127. She subsequently has seen her PCP and her HCTZ was stopped. Three days ago she developed nausea and vomiting again, could only keep liquids down, was drinking water and a Gatorade powder mix. She has had loose BMs but denies diarrhea. Her son brought her to the ER today because of persistent N/V symptoms. She was again found to have a low sodium, today 122. The patient denies any fever, watery diarrhea, no recent travel, no exposure to people with nausea or vomiting. No new medications have been started. In the ER, patient has been started on iv normal saline and given antiemetics. The ED provider spoke to me about this patient. She will be admitted to the Hospitalist service for treating recurrent nausea and vomiting and recurrent hyponatremia. In reviewing her medication list, her 2 antidepressants, bupropion and Vilazadone can cause hyponatremia however she has been on both of these for over 2 years, and has not had hyponatremia until this year. I spoke to the patient about her CODE BLUE wishes and she wants to be a full code. - HOSPITAL COURSE Hospital Course: (1) Hyponatremia Patient has had 2 admissions for this in the past 3 weeks, both accompanied with nausea and vomiting. So it was unknown if the vomiting caused the hyponatremia or if hyponatremia caused the nausea and vomiting. Her sodium was 122 at presentation. She received iv NS and we followed her serum sodium every 8 hours, to avoid rapid, over correction and risk of demyelination. At discharge her serum sodium was 130, on a new salt tablet daily, a free water restriction and BID oral Lasix. She needs her BMP foloowed and could be referred to Nephrology. (2) SIADH (syndrome of inappropriate ADH production) We diagnosed that she has SIADH, since her urine sodium is excessively high for somebody with a low serum sodium. The possibility exists that her 2 SSRI meds have caused the hyponatremia. It was necessary to resume the 2 SSRI antidepressants, since she was getting the headache which she gets w/out her meds, and was getting tearful without the morning SSRI doses. (These should be labeled drugs that CANNOT BE DISCONTINUED as we treat the underlying SIADH). We ruled out hypothyroidism and cortisol deficiency: we checked her TSH and it came back normal, ruling out Hypothyroidism. She also had cortisol levels checked with a Cortrosyn stimulation test, which showed she raises her cortisol to greater than 18, therefore she does not have adrenal insufficiency. She was started on a salt tablet and free water restriction, then needed Lasix as well to eliminate free water. (3) N/V There was no diarrhea, just N/V for 3 days before admission. Her nausea and vomiting dissipated, as her sodium was correcting. I suspect that the nausea and vomiting was a secondary symptom of the Hyponatremia, which was the primary problem. (4) Frequent falls She has had 3 or 4 falls since June of this year. With one, she had CT head evaluation which was neg. She reported feeling poor balance, and needing support. She denied vertigo or lightheadedness when they happen. Poor balance was also from Hyponatremia. As her sodium improved here, so did her balance and ability to walk independently, as per PT and OT evals. (5) Depression The patient is on 2 SSRI antidepressants to treat her depression which she described as working, and other antidepressants tried previously did not work. I tried stopping her meds, but she noted being sad and tearful and getting her headache after skipping just 1 day. It was necessary to resume both SSRI antidepressants even though the are probably the cause of her SIADH. (6) Iron deficiency anemia Her admission hemoglobin was 10. This was likley the cause of "always feeling cold". Her B12 and folate levels came back adequate, thus her Folate supplement can be stopped. Her reconciled meds listed she takes iron tablets every other day. Her stool guaiac test came back neg. She then revealed that when she lived in [place], she needed frequent IV iron infusions. She received 1 dose of IV iron dextran infusion here. She was also advised to take her oral iron tablet daily not QOD. (7) History of DVT (deep vein thrombosis) She is on Xarelto lifelong. The patient never had PEs by her description. We had to substitute Eliquis BID while she was here, since Xarelto is not on hospital formulary. (8) KONSTANTIN on CPAP Her CPAP machine was used here (9) Morbid obesity with BMI of 40.0-44.9, adult This complicates all her care. - ALLERGIES Allergies/Adverse Reactions: Allergies Allergy/AdvReac Type Severity Reaction Status Date / Time codeine AdvReac Nausea Verified 02/27/23 09:33 - MEDICATIONS Home Medications: Ambulatory Orders Medication Instructions Recorded Confirmed Gabapentin 300 - 600 mg PO BID 09/08/15 02/27/23 Rivaroxaban [Xarelto] 20 mg PO QPM 09/08/15 02/27/23 Topiramate 25 - 75 mg PO BID 09/08/15 02/27/23 Vilazodone HCl [Viibryd] 40 mg PO DAILY 09/08/15 02/27/23 diphenhydrAMINE [Benadryl] 50 mg PO BID 03/11/20 02/27/23 Famotidine [Pepcid] 20 mg PO BID 09/01/21 02/27/23 Telmisartan 80 mg PO DAILY 02/12/23 02/27/23 buPROPion HCL [Bupropion Xl] 300 mg PO DAILY 02/12/23 02/27/23 Cholecalciferol [Vitamin D3] 25 mcg PO DAILY 02/13/23 02/27/23 Cyanocobalamin [Vitamin B-12] 1,000 mcg PO DAILY tab 02/13/23 02/27/23 Furosemide [Lasix] 20 mg PO 0800,1500 #60 tab 03/03/23 Iron Bis-Glycinat/Vit C/FA/B12 1 cap PO DAILY #30 cap 03/03/23 [Gentle Iron 28 mg Capsule] Sodium Chloride [Salt Tab] 1 gm PO DAILY #30 tab 03/03/23 - PHYSICAL EXAM AT DISCHARGE General Appearance: positive: No acute distress, Alert, Other (Obese female) Eyes Bilateral: positive: Normal inspection, EOMI ENT: positive: ENT inspection nml, No signs of dehydration Neck: positive: Nml inspection, No JVD Respiratory: positive: No respiratory distress, Breath sounds nml Cardiovascular: positive: Regular rate & rhythm, No murmur Abdomen: positive: Non-tender, Nml bowel sounds, Other (Obese) Skin: positive: Warm, Dry Extremities: positive: Non-tender, No pedal edema Neurologic/Psychiatric: positive: Oriented x3, Motor nml - LABS Result Diagrams: 03/03/23 05:06 03/03/23 05:06 - DIAGNOSTIC IMAGING Diagnostic Imaging Results: Final report reviewed - FOLLOW UP Follow Up: See PCP in 7-10 days, she needs a BMP blood test, and consider a referral to Nephrology. - TIME SPENT Time Spent in Discharge (Minutes): 45
== END 2023-03-03 10:15 | disposition home or self-care (01) | DRG 644 ==
LOC: ED 09:25 → MS2 12:57
PROVIDERS: ADMIT Internal Medicine; ATTEND Internal Medicine
DX: E87.1 Hypo-osmolality and hyponatremia (principal); E22.2 Syndrome of inappropriate secretion of antidiuretic hormone; Z68.42 Body mass index [BMI] 45.0-49.9, adult; I10 Essential (primary) hypertension; F32.A Depression, unspecified; R11.2 Nausea with vomiting, unspecified; T43.225A Adverse effect of selective serotonin reuptake inhibitors, initial encounter; D50.9 Iron deficiency anemia, unspecified; G47.33 Obstructive sleep apnea (adult) (pediatric); E66.01 Morbid (severe) obesity due to excess calories; K21.9 Gastro-esophageal reflux disease without esophagitis; R19.7 Diarrhea, unspecified; R51.9 Headache, unspecified; Z79.01 Long term (current) use of anticoagulants; Z79.899 Other long term (current) drug therapy; Z86.718 Personal history of other venous thrombosis and embolism; Z88.5 Allergy status to narcotic agent; Z91.81 History of falling
CPT/HCPCS: 36415; 80048; 80053; 81003; 82272; 82533; 82607; 82746; 83540; 83690; 83735; 83935; 84295; 84300; 84443; 84466; 85018; 85025; 85027; 96374; 97162; 99283; 99285; A9270; J1750; 81001; 87086

== ENCOUNTER 2023-04-01 14:46 | Outpatient (CLI) | payer MEDICARE, OTHER ==
--- NOTE | 2023-04-01 21:11 | Ultrasound Report ---
PROCEDURE: Retroperitoneal ultrasound INDICATIONS: CKI TECHNIQUE: Real-time scanning was performed of the retroperitoneal organs, with image documentation. COMPARISON: None. FINDINGS: Kidneys: Kidneys are normal in size. Right kidney measures 9.5 cm long; left kidney measures 9 cm l luis e. Right renal cortical thickness is 0.6 cm; left renal cortical thickness is 0.7 cm. No solid ma sses, hydronephrosis, or nephrolithiasis. There is normal cortical echogenicity. Bladder: Pre-void bladder volume is 187 mL. Post-void residual is 64 mL. Pre-void images demonstra te no intraluminal masses or stones. On pre-void images, bilateral ureteral jets are noted with colo r Doppler interrogation. (Of note, ureteral jets may not be detectable in up to 25% of cases due to insufficient differences in specific gravity between ureteral and bladder urine). Miscellaneous: No free abdominal fluid. IMPRESSION: 1. No hydronephrosis or nephrolithiasis bilaterally. 2. Bilateral kidneys are normal in size with normal cortical echogenicity. Reviewed by: Miya Austin MD on 04/01/2023 9:10 PM PDT Approved by: Miya Austin MD on 04/01/2023 9:10 PM PDT Station ID: [id number]
== END 2023-04-01 14:47 | disposition home or self-care (01) ==
LOC: DI 14:46
PROVIDERS: ATTEND Physician Assistant
DX: N17.9 Acute kidney failure, unspecified (principal); E87.1 Hypo-osmolality and hyponatremia

== ENCOUNTER 2024-02-19 08:33 | Day surgery (SDC) | payer MEDICARE, OTHER ==
--- NOTE | 2024-02-19 09:07 | ED Physician Documentation ---
PD HPI ABD PAIN - Stated complaint Stated Complaint: ABD PX,WEAKNESS IN LEGS - Chief complaint Chief Complaint: Abd Pain - History obtained from History obtained from: Patient - History of Present Illness Timing - onset: Yesterday Timing - duration: Days (2) Timing - details: Gradual onset, Still present Quality: Aching, Pain Location: RLQ Radiation: Lower back, Other (mid abd) Associated symptoms: Nausea, Diarrhea (loose last night). 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 She has just been on oral anticoagulants since that time. No history of PE nor A-fib.) Review of Systems Constitutional: denies: Fever, Chills Nose: denies: Rhinorrhea / runny nose, Congestion Throat: denies: Sore throat Respiratory: denies: Cough GI: reports: Abdominal Pain, Nausea. denies: Constipation, Bloody / black stool : denies: Dysuria, Frequency PD PAST MEDICAL HISTORY - Past Medical History Cardiovascular: Hypertension, Deep vein thrombosis Respiratory: Sleep apnea, CPAP use Neuro: Headaches, Migraines, Peripheral neuropathy Endocrine/Autoimmune: None GI: GERD, Hiatal hernia [employer]IAN: None : None HEENT: None Psych: Depression, Anxiety Musculoskeletal: Osteoarthritis, Chronic back pain, Other Derm: Other - Past Surgical History Past Surgical History: Yes General: Colonoscopy, Other Ortho: Knee replacement, Arthroscopic surgery /[employer] TECHNICIAN: Tubal ligation, Hysterectomy Cardiovascular: CABG Neuro: Craniotomy HEENT: Tonsil/Adenoidectomy - Present Medications Home Medications: Ambulatory Orders Medication Instructions Recorded Confirmed Gabapentin 300 - 600 mg PO BID 09/08/15 02/19/24 Topiramate 25 - 75 mg PO BID 09/08/15 02/19/24 Vilazodone HCl [Viibryd] 40 mg PO DAILY 09/08/15 02/19/24 diphenhydrAMINE [Benadryl] 50 mg PO BID 03/11/20 02/19/24 Telmisartan 80 mg PO DAILY 02/12/23 02/19/24 buPROPion HCL [Bupropion Xl] 300 mg PO DAILY 02/12/23 02/19/24 Cholecalciferol [Vitamin D3] 25 mcg PO DAILY 02/13/23 02/19/24 Cyanocobalamin [Vitamin B-12] 1,000 mcg PO DAILY tab 02/13/23 02/19/24 Iron Bis-Glycinat/Vit C/FA/B12 1 cap PO DAILY #30 cap 03/03/23 02/19/24 [Gentle Iron 28 mg Capsule] Apixaban [Eliquis] 1 tab PO BID 02/19/24 02/19/24 - Allergies Allergies/Adverse Reactions: Allergies Allergy/AdvReac Type Severity Reaction Status Date / Time codeine AdvReac Nausea Verified 02/19/24 08:46 - Social History Does the pt smoke?: No Smoking Status: Never smoker Does the pt drink ETOH?: No Does the pt have substance abuse?: No - Immunizations Immunizations are current?: Yes PD ED PE NORMAL - Vitals Vital signs reviewed: Yes - General General: Alert and oriented X 3, Well developed/nourished, Other (appears in pain) - Neck Neck: Supple, no meningeal sign, No adenopathy - Cardiac Cardiac: RRR, No murmur - Respiratory Respiratory: Clear bilaterally - Abdomen Abdomen: Soft, Non distended, Other (She is focally tender with guarding and percussion and rebound in the right lower quadrant. Fairly obese with a BMI of 44. She does have tenderness to the mid and right upper abdomen mostly referring to the right lower quadrant. Left side nontender.). No: Normal bowel sounds (diminished) - Derm Derm: Normal color, Warm and dry - Extremities Extremities: Normal ROM s pain, No edema, No calf tenderness / cord - Neuro Neuro: Alert and oriented X 3, No motor deficit, Normal speech Results - Vitals Vitals: Vital Signs - 24 hr 02/19/24 02/19/24 02/19/24 08:46 12:48 13:00 Temperature 36.8 C 37.4 C Heart Rate 84 87 Heart Rate [ 97 Brachial] Respiratory 20 24 17 Rate Blood Pressure 122/51 L 120/60 Blood Pressure 98/75 [Right Brachial artery] O2 Saturation 98 95 90 L 02/19/24 02/19/24 02/19/24 16:50 16:55 17:00 Temperature 37 C 37 C 37 C Heart Rate 76 75 75 Heart Rate [ Brachial] Respiratory 17 16 15 Rate Blood Pressure 90/48 L 97/48 L 94/55 L Blood Pressure [Right Brachial artery] O2 Saturation 98 97 97 02/19/24 02/19/24 02/19/24 17:05 17:10 17:15 Temperature 37 C 37 C 37 C Heart Rate 82 79 85 Heart Rate [ Brachial] Respiratory 19 17 19 Rate Blood Pressure 95/53 L 111/58 L 104/51 L Blood Pressure [Right Brachial artery] O2 Saturation 99 97 98 02/19/24 02/19/24 02/19/24 18:06 18:51 19:21 Temperature 36.6 C 37.1 C Heart Rate 62 77 80 Heart Rate [ Brachial] Respiratory 18 20 18 Rate Blood Pressure 102/53 L 106/50 L 99/53 L Blood Pressure [Right Brachial artery] O2 Saturation 97 96 97 Oxygen O2 Source Room air - Labs Labs: Laboratory Tests 02/19/24 02/19/24 02/19/24 09:39 09:39 13:09 WBC 11.3 H RBC 3.34 L Hgb 9.0 L Hct 29.8 L MCV 89.2 MCH 26.9 L MCHC 30.2 L RDW 14.3 Plt Count 215 MPV 9.0 Neut # (Auto) 9.2 H Lymph # (Auto) 0.7 L [place] # (Auto) 1.4 H Eos # (Auto) 0.0 Baso # (Auto) 0.0 Absolute Nucleated RBC 0.00 Nucleated RBC % 0.0 Sodium 135 Potassium 3.8 Chloride 105 Carbon Dioxide 24 Anion Gap 6.0 BUN 21 H Creatinine 1.4 H Estimated GFR (MDRD) 37 L Glucose 111 H Calcium 8.8 Total Bilirubin 0.5 AST 10 ALT 9 L Alkaline Phosphatase 67 Total Protein 6.5 Albumin 3.8 Globulin 2.7 Albumin/Globulin Ratio 1.4 Lipase 13 Urine Color Urine Clarity Urine pH Ur Specific [place] Urine Protein Urine Glucose (UA) Urine Ketones Urine Occult Blood Urine Nitrite Urine Bilirubin Urine Urobilinogen Ur Leukocyte Esterase Ur Microscopic Review Urine Culture Comments Blood Type AB POSITIVE Antibody Screen NEGATIVE 02/19/24 14:15 WBC RBC Hgb Hct MCV MCH MCHC RDW Plt Count MPV Neut # (Auto) Lymph # (Auto) [place] # (Auto) Eos # (Auto) Baso # (Auto) Absolute Nucleated RBC Nucleated RBC % Sodium Potassium Chloride Carbon Dioxide Anion Gap BUN Creatinine Estimated GFR (MDRD) Glucose Calcium Total Bilirubin AST ALT Alkaline Phosphatase Total Protein Albumin Globulin Albumin/Globulin Ratio Lipase Urine Color YELLOW Urine Clarity CLEAR Urine pH 5.0 Ur Specific [place] 1.015 Urine Protein TRACE Urine Glucose (UA) NEGATIVE Urine Ketones NEGATIVE Urine Occult Blood NEGATIVE Urine Nitrite NEGATIVE Urine Bilirubin NEGATIVE Urine Urobilinogen 0.2 (NORMAL) Ur Leukocyte Esterase NEGATIVE Ur Microscopic Review NOT INDICATED Urine Culture Comments NOT INDICATED Blood Type Antibody Screen - Rads (name of study) abd pelvic CT Relevant Findings:: Prelim report reviewed (acute uncomplicated appendicitis with appendicolith. ), EMP independent interpretation of test PD Medical Decision Making - ED course Complexity details: reviewed results (CT showing acute appendicitis. Complication is her DOAC, the last dose of which was last evening. ), re- evaluated patient (pain improved with IV meds and she states comfortable for now. Advised of findings and surgeon to eval/talk with her. ), considered differential (onset pain right lower that has worsened and has marked tenderness there with peritoneal signs lcoally and stanley referred fro mid abd/RUQ. Seems very concerning for appy, though right divertic, UTI, colitis, etc are potential. Can give fludis, meds for pain and nausea, but to get labs and CT. ), d/w patient, d/w bus info consultant (Dr. Rosales, cut in station operator for surgery. ), other (history of DVTs when younger (in 60s) and has been on DOAC since. No recent problems. No PEs. No heart valve disorders. ) Departure - Departure Disposition: ED Transfer to [facility] Clinical Impression: Abdominal pain Qualifiers: Abdominal location: right lower quadrant Qualified Code(s): R10.31 - Right lower quadrant pain Acute appendicitis Qualifiers: Acute appendicitis type: with generalized peritonitis Appendicitis gangrene presence: without gangrene Appendicitis perforation presence: without perforation Appendicitis abscess presence: without abscess Qualified Code(s): K35.200 - Acute appendicitis with generalized peritonitis, without perforation or abscess Condition: Stable Record reviewed to determine appropriate education?: Yes Discharge Date/Time: 02/19/24 13:45
[2024-02-19 09:45] LABS: BASOPHILS % (AUTO) 0.2 %; EOSINOPHILS % (AUTO) 0.2 %; HCT - HEMATOCRIT 29.8 % (37.0-47.0); LYMPHOCYTES # (AUTO) 0.7 10^3/uL (1.5-3.5); LYMPHOCYTES % (AUTO) 5.9 %; MEAN CORPUSCULAR HEMOGLOBIN 26.9 pg (27.0-31.0); MEAN CORPUSCULAR HGB CONC 30.2 g/dL (32.0-36.0); MEAN CORPUSCULAR VOLUME 89.2 fL (81.0-99.0); MONOCYTES # (AUTO) 1.4 10^3/uL (0.0-1.0); MONOCYTES % (AUTO) 12.3 %; NEUTROPHILS # (AUTO) 9.2 10^3/uL (1.5-6.6); PLT - PLATELET COUNT 215 10^3/uL (130-450); RED BLOOD COUNT 3.34 10^6/uL (4.20-5.40); RED CELL DISTRIBUTION WIDTH 14.3 % (12.0-15.0); WHITE BLOOD COUNT 11.3 x10^3/uL (4.8-10.8)
[2024-02-19 10:01] LABS: ALBUMIN 3.8 g/dL (3.2-5.5); ALBUMIN/GLOBULIN RATIO 1.4 (1.0-2.2); BILIRUBIN,TOTAL 0.5 mg/dL (0.2-1.0); CALCIUM 8.8 mg/dL (8.5-10.3); CREATININE 1.4 mg/dL (0.6-1.3); POTASSIUM 3.8 mmol/L (3.5-4.5); TOTAL PROTEIN 6.5 g/dL (6.4-8.9)
[2024-02-19] MEDS ORDERED: iohexoL-300 100 ML VIAL ONE (10:03)
[2024-02-19] MEDS: KETOROLAC 15 MG/ML VIAL IVP STA (10:10)
[2024-02-19] MEDS: SODIUM CHLORIDE 0.9% 1,000 ML IV STA (10:11)
[2024-02-19] MEDS: HYDROmorphone 1 MG/ML CARPUJECT IVP STA (10:11)
[2024-02-19] MEDS: iohexoL-300 100 ML VIAL IVP ONE (10:33)
--- NOTE | 2024-02-19 10:55 | CT Report ---
PROCEDURE: Abdomen/Pelvis W INDICATIONS: RLQ pain increasing 2 days CONTRAST: 100ml omni 300 TECHNIQUE: After the administration of intravenous contrast, a CT scan of the abdomen and pelvis was performed. Images were recorded and evaluated at appropriate window settings. Reformats: coronal and sagittal. F or radiation dose reduction, the following was used: automated exposure control, adjustment of mA and /or kV according to patient size. COMPARISON: CT abdomen and pelvis on February 12, 2023. FINDINGS: Image quality: Diagnostic. Lower chest: Bilateral lower lobe atelectasis. Moderate to large hiatal hernia mitral annular calcifi cation. Coronary vessel calcification. Liver: No solid mass. Left hepatic lobe simple cysts, stable. Gallbladder: Cholelithiasis without wall thickening. Biliary tree: No intrahepatic or extrahepatic dilation, accounting for age. Spleen: No splenomegaly. Pancreas: No pancreatic ductal dilation. Adrenals: No adrenal nodule. Kidneys and ureters: Symmetric enhancement with no hydronephrosis or nephrolithiasis bilaterally. No renal cystic lesion which requires follow up. No solid mass. Stomach, bowel and peritoneum: Small and large bowel is normal in caliber, without obstruction. Dilat ed appendix measuring up to 1.6 cm with periappendiceal fat stranding (, ). Small appendicoli th in the mid segment measuring 0.8 x 0.5 cm () No free air or periappendiceal fluid collection/a bscess. Extensive sigmoid and scattered colonic diverticulosis, without diverticulitis. Lymph nodes: No central or retroperitoneal adenopathy. Vessels: No infrarenal aortic aneurysm. Patent portal vein. Mild calcification of the abdominal aorta and iliac vessels. Proximal mesenteric vessels are patent. Patent hepatic, portal, splenic and bilat eral renal veins. PELVIS Reproductive organs: Hysterectomy. Bladder: No abnormal wall thickening, accounting for underdistention. Pelvic lymph nodes: No pelvic adenopathy by size criteria. Bones: No aggressive osseous abnormality. No acute fractures. [id number] multilevel degenerativ e changes of the spine. Grade 1 anterolisthesis of L5 on S1, as before. Other: Tiny fat-containing umbilical hernia. No inguinal hernia. IMPRESSION: 1.Acute uncomplicated appendicitis with appendicolith. No perforation or abscess. 2.Moderate to large hiatal hernia. 3.Cholelithiasis without acute cholecystitis. Reviewed by: Miya Austin MD on 02/19/2024 9:54 AM BARRY Approved by: Miya Austin MD on 02/19/2024 9:54 AM BARRY Station ID: [id number]
[2024-02-19] MEDS: PIPERACILLIN/TAZOBACTAM 3.375 GM in SODIUM CHLORIDE 0.9% MINIBAG 100 ML IV STA (11:35)
[2024-02-19] MEDS: LACTATED RINGERS 1,000 ML IV STA (11:49)
--- NOTE | 2024-02-19 12:57 | HISTORY & PHYSICAL EXAMINATION ---
HPI - History Obtained From History obtained from: Patient Exam limitations: No limitations - History of Present Illness HPI Comment/Other: Karmen is a 78 year old female who developed the onset of dull, non-radiating lower abdominal pain yesterday around 1500. The pain has persisted, is constant and associated with nausea without vomiting. She tried to eat last night but lost her appetite. She slept poorly because her cat like to sleep on her belly and this caused her discomfort. She had continued abdominal pain this morning and came to the ED where acute appendicitis was diagnosed. 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 Her last dose was last evening. She denies easy bruising, epistax is, or rectal bleeding. PMH/PSH - Past Medical History Cardiovascular: positive: Hypertension, Deep vein thrombosis Respiratory: positive: Sleep apnea, CPAP use Neuro: positive: Headaches, Migraines, Peripheral neuropathy Endocrine/Autoimmune: positive: None GI: positive: GERD, Hiatal hernia [employer]: positive: None : positive: None HEENT: positive: None Psych: positive: Depression, Anxiety Musculoskeletal: positive: Osteoarthritis, Chronic back pain, Other Derm: positive: Other MRSA Hx?: No - Past Surgical History General: positive: Colonoscopy, Other Ortho: positive: Knee replacement, Arthroscopic surgery /[employer]: positive: Tubal ligation, Hysterectomy HEENT: positive: Tonsil/Adenoidectomy Social & Family Hx - Living Situation Living Situation: With spouse/s.o. (Spouse has dementia and is being managed by her son while she is away from home) - Social History Does the pt smoke?: No Smoking Status: Never smoker Does the pt drink ETOH?: No Does the pt have substance abuse?: No - Family History Family History: Father: Cancer, Sister: Cancer, Brother: Cancer Family History Comment/Other: Mother with benign brain tumor; Father with gastric cancer, Brother with prostate cancer, Sister with liver cancer Meds/Allgy - Home Medications Home Medications: Ambulatory Orders Medication Instructions Recorded Confirmed Gabapentin 300 - 600 mg PO BID 09/08/15 02/19/24 Topiramate 25 - 75 mg PO BID 09/08/15 02/19/24 Vilazodone HCl [Viibryd] 40 mg PO DAILY 09/08/15 02/19/24 diphenhydrAMINE [Benadryl] 50 mg PO BID 03/11/20 02/19/24 Telmisartan 80 mg PO DAILY 02/12/23 02/19/24 buPROPion HCL [Bupropion Xl] 300 mg PO DAILY 02/12/23 02/19/24 Cholecalciferol [Vitamin D3] 25 mcg PO DAILY 02/13/23 02/19/24 Cyanocobalamin [Vitamin B-12] 1,000 mcg PO DAILY tab 02/13/23 02/19/24 Iron Bis-Glycinat/Vit C/FA/B12 1 cap PO DAILY #30 cap 03/03/23 02/19/24 [Gentle Iron 28 mg Capsule] Apixaban [Eliquis] 1 tab PO BID 02/19/24 02/19/24 - Allergies Allergies/Adverse Reactions: Allergies Allergy/AdvReac Type Severity Reaction Status Date / Time codeine AdvReac Nausea Verified 02/19/24 08:46 Review of Systems - Constitutional Constitutional: reports: Poor appetite - Gastrointestinal Gastrointestinal: reports: Abdominal pain, Nausea - All Other Systems All Other Systems: reports: Reviewed and negative Exam - Vital Signs Vital Signs: Vital Signs x48h Temp Pulse Resp BP Pulse Ox 02/19/24 12:48 87 24 120/60 95 02/19/24 08:46 98.2 F 84 20 122/51 L 98 - Physical Exam General Appearance: positive: No acute distress, Alert Eyes Bilateral: positive: Normal inspection, PERRL, EOMI ENT: positive: ENT inspection nml, Pharynx nml, No signs of dehydration Neck: positive: Nml inspection, Thyroid nml, No JVD, Trachea midline Respiratory: positive: Chest non-tender, No respiratory distress, Breath sounds nml Cardiovascular: positive: Regular rate & rhythm, No murmur Peripheral Pulses: positive: 2+ Abdomen: positive: Tenderness (Mild RLW tenderness without peritoneal signs; Fullness in RLQ) Skin: positive: Color nml, No rash, Warm Extremities: positive: Non-tender, Full ROM Neurologic/Psychiatric: positive: Oriented x3, CN's nml (2-12) Results - Lab Results Fish Bones: 02/19/24 09:39 02/19/24 09:39 Other Lab Results: Lab Results x24hrs 02/19/24 02/19/24 Range/Units 09:39 09:39 WBC 11.3 H (4.8-10.8) x10^3/uL RBC 3.34 L (4.20-5.40) 10^6/uL Hgb 9.0 L (12.0-16.0) g/dL Hct 29.8 L (37.0-47.0) % MCV 89.2 (81.0-99.0) fL MCH 26.9 L (27.0-31.0) pg MCHC 30.2 L (32.0-36.0) g/dL RDW 14.3 (12.0-15.0) % Plt Count 215 (130-450) 10^3/uL MPV 9.0 (7.9-10.8) fL Neut # (Auto) 9.2 H (1.5-6.6) 10^3/uL Lymph # (Auto) 0.7 L (1.5-3.5) 10^3/uL [place] # (Auto) 1.4 H (0.0-1.0) 10^3/uL Eos # (Auto) 0.0 (0.0-0.7) 10^3/uL Baso # (Auto) 0.0 (0.0-0.1) 10^3/uL Absolute Nucleated RBC 0.00 x10^3/uL Nucleated RBC % 0.0 /100WBC Sodium 135 (135-145) mmol/L Potassium 3.8 (3.5-4.5) mmol/L Chloride 105 (101-111) mmol/L Carbon Dioxide 24 (21-32) mmol/L Anion Gap 6.0 (6-13) BUN 21 H (6-20) mg/dL Creatinine 1.4 H (0.6-1.3) mg/dL Estimated GFR (MDRD) 37 L (>89) Glucose 111 H (74-104) mg/dL Calcium 8.8 (8.5-10.3) mg/dL Total Bilirubin 0.5 (0.2-1.0) mg/dL AST 10 (10-42) IU/L ALT 9 L (10-60) IU/L Alkaline Phosphatase 67 (42-121) IU/L Total Protein 6.5 (6.4-8.9) g/dL Albumin 3.8 (3.2-5.5) g/dL Globulin 2.7 (2.1-4.2) g/dL Albumin/Globulin Ratio 1.4 (1.0-2.2) Lipase 13 (11-82) U/L - Diagnostic Imaging Results Diagnostic Imaging Results: positive: See rad report Diagnostic Imaging Results Comments: Distended appendix with fecalith and kendal-appendiceal inflammation. No abscess or phlegmon seen. No free fluid. The appendix is adherent to the inner aspect of the RLQ abdominal wall. Impression/Plan - Problem List Problem List: Assessment: 1) Acute appendicitis with fecalith and without evidence of rupture. Non-op erative management is contraindicated when there is appendicitis associated with a fecalith. Her last dose of Eliquis was yesterday so she is at higher risk of kendal-operative bleeding but avoiding progression of the appendiceal inflammation and the potential for peritonitis takes precedence as a treatment strategy in this case. As the appendix is adjacent to the abdominal wall, the amount of tissue dissection should be minimial. We have K-centra at this facility which will be used if there is a perioperative bleeding issue. 2) Sleep apnea 3) HTN 4) Obesity Plan: 1) NPO 2) Hold today's dose of Eliquis 3) IV antibiotics (Zosyn) 4) Laparoscopic appendectomy, possible open appendectomy this afternoon. Consent: Karmen has been counseled for the procedure, it's indications, risks, benefits and expected outcome as well as alternative therapies. We specifically discussed risks associated with anesthesia, bleeding, infection, injury to surrounding structures which may require additional surgery, and the possible need for conversion to an open procedure. We also discussed the possible need for a blood transfusion with its risks and benefits. Karmen understands, agrees, and consents to the proposed operative strategy and requests that we proceed with the procedure as outlined in our discussion. Og Rosales MD, [facility] General Surgery Service
[2024-02-19 14:35] LABS: BILIRUBIN,URINE NEGATIVE (NEGATIVE); GLUCOSE, URINE (UA) NEGATIVE (NEGATIVE); KETONES,URINE (UA) NEGATIVE (NEGATIVE); LEUKOCYTE ESTERASE, URINE NEGATIVE (NEGATIVE); NITRITE,URINE NEGATIVE (NEGATIVE); OCCULT BLOOD,URINE NEGATIVE (NEGATIVE); PROTEIN,URINE TRACE mg/dL (NEGATIVE); UROBILINOGEN,URINE 0.2 (NORMAL) E.U./dL (NORMAL)
[2024-02-19 14:36] LABS: CLARITY,URINE CLEAR (CLEAR)
[2024-02-19] MEDS ORDERED: ATROPINE ABBOJECT 1 MG/10 ML SYRINGE IVP PRN (14:54)
[2024-02-19] MEDS ORDERED: HYDROmorphone 0.5 MG/0.5 ML SYRINGE IVP PRN (14:54)
[2024-02-19] MEDS ORDERED: MORPHINE 2 MG/ML CARPUJECT IVP PRN (14:54)
[2024-02-19] MEDS ORDERED: NALOXONE 0.4 MG/ML VIAL IVP PRN (14:54)
[2024-02-19] MEDS ORDERED: ePHEDrine 50 MG/ML VIAL IVP PRN (14:54)
[2024-02-19] MEDS ORDERED: fentaNYL 100 MCG/2 ML VIAL IVP PRN (14:54)
[2024-02-19] MEDS ORDERED: ONDANSETRON 4 MG/2 ML VIAL IVP PRN ×2 (14:54→17:02)
--- NOTE | 2024-02-19 14:54 | ANESTHESIA ---
Pre-Anesthesia VS, & Labs - Diagnosis acute appendicitis - Procedure lap appy Vital Signs: Temp Pulse Resp BP Pulse Ox O2 Flow Rate 37.4 C 97 17 98/75 90 L 02/19/24 13:00 02/19/24 13:00 02/19/24 13:00 02/19/24 13:00 02/19/24 13:00 Height: 4 ft 8.5 in Weight (kg): 91.626 kg Body Mass Index: 44.4 BMI Classification: Morbidly Obese - NPO >8 hours - Is Patient ?: No - Lab Results Current Lab Results: Laboratory Tests 02/19/24 13:09: Blood Type AB POSITIVE, Antibody Screen NEGATIVE 02/19/24 09:39: Sodium 135, Potassium 3.8, Chloride 105, Carbon Dioxide 24, Anion Gap 6.0, BUN 21 H, Creatinine 1.4 H, Estimated GFR (MDRD) 37 L, Glucose 111 H, Calcium 8.8, Total Bilirubin 0.5, AST 10, ALT 9 L, Alkaline Phosphatase 67, Total Protein 6.5, Albumin 3.8, Globulin 2.7, Albumin/Globulin Ratio 1.4, Lipase 13 02/19/24 09:39: WBC 11.3 H, RBC 3.34 L, Hgb 9.0 L, Hct 29.8 L, MCV 89.2, MCH 26.9 L, MCHC 30.2 L, RDW 14.3, Plt Count 215, MPV 9.0, Neut # (Auto) 9.2 H, Lymph # (Auto) 0.7 L, [place] # (Auto) 1.4 H, Eos # (Auto) 0.0, Baso # (Auto) 0.0, Absolute Nucleated RBC 0.00, Nucleated RBC % 0.0 Fish Bones: 02/19/24 09:39 02/19/24 09:39 Home Medications and Allergies Home Medications: Ambulatory Orders Apixaban [Eliquis] 1 tab PO BID 02/19/24 Gabapentin 300 - 600 mg PO BID 09/08/15 Topiramate 25 - 75 mg PO BID 09/08/15 Vilazodone HCl [Viibryd] 40 mg PO DAILY 09/08/15 diphenhydrAMINE [Benadryl] 50 mg PO BID 03/11/20 Telmisartan 80 mg PO DAILY 02/12/23 buPROPion HCL [Bupropion Xl] 300 mg PO DAILY 02/12/23 Cholecalciferol [Vitamin D3] 25 mcg PO DAILY 02/13/23 Apixaban [Eliquis] 1 tab PO BID 02/19/24 Allergies/Adverse Reactions: Allergies Allergy/AdvReac Type Severity Reaction Status Date / Time codeine AdvReac Nausea Verified 02/19/24 08:46 Anes History & Medical History - Anesthetic History Anesthesia Complications: reports: No previous complications Family history of Anesthesia Complications: Denies Family history of Malignant Hyperthermia: Denies - Medical History Cardiovascular: reports: Hypertension, Deep vein thrombosis Pulmonary: reports: Sleep apnea, CPAP use Gastrointestinal: reports: GERD, Hiatal hernia, Other (morbid obesity) Urinary: reports: None Neuro: reports: Headaches, Migraines, Peripheral neuropathy Musculoskeletal: reports: Osteoarthritis, Chronic back pain, Other Endocrine/Autoimmune: reports: None Blood Disorders: reports: None Skin: reports: Other Smoking Status: Never smoker Psychosocial: reports: No issues indicated - Surgical History General: reports: Colonoscopy, Other Eyes Ears Nose Throat (EENT): reports: Tonsil/Adenoidectomy Cardiothoracic: reports: CABG Gynecologic: reports: Tubal ligation, Hysterectomy Neurologic: reports: Craniotomy Orthopedic: reports: Knee replacement, Arthroscopic surgery Exam General: Alert, Oriented x3, Cooperative Dental: WNL Mouth Openin Fingerbreadth Neck Mobility: Normal Mallampati classification: III Thyromental Distance: less than 4 cm Respiratory: Lungs clear Cardiovascular: Regular rate Plan Anesthesia Type: General Consent for Procedure(s) Verified and Reviewed: Yes Code Status: Attempt Resuscitation ASA classification: 3-Severe systemic disease Is this case an emergency?: No
[2024-02-19] MEDS ORDERED: LACTATED RINGERS 1,000 ML IV SCH ×2 (15:00→17:06)
[2024-02-19] MEDS ORDERED: BUPIVACAINE 0.25% PF 30 ML VIAL ONE (15:12)
[2024-02-19] MEDS ORDERED: LIDOCAINE 1%-EPI 1:100000 20 ML MDV ONE (15:12)
[2024-02-19] MEDS ORDERED: ROCURONIUM 50 MG/5 ML VIAL ONE (15:30)
[2024-02-19] MEDS ORDERED: ONDANSETRON 4 MG/2 ML VIAL ONE (15:30)
[2024-02-19] MEDS ORDERED: PROPOFOL 200 MG/20 ML VIAL IVP ONE (15:30)
[2024-02-19] MEDS ORDERED: LIDOCAINE-PF 2% 10 ML AMP SUBQ ONE (15:30)
[2024-02-19] MEDS ORDERED: fentaNYL 100 MCG/2 ML VIAL ONE (15:30)
[2024-02-19] MEDS ORDERED: ACETAMINOPHEN 1,000 MG/100 ML 1,000 MG/100 ML BAG IV ONE (15:59)
[2024-02-19] MEDS: LIDOCAINE 1%-EPI 1:100000 20 ML MDV SUBQ ONE ×2 (16:08)
[2024-02-19] MEDS: BUPIVACAINE 0.25% PF 30 ML VIAL SUBQ ONE ×2 (16:09)
[2024-02-19] MEDS ORDERED: SUGAMMADEX 200 MG/2 ML VIAL IVP ONE (16:38)
[2024-02-19] MEDS: LACTATED RINGERS 1,000 ML IV ONE ×2 (16:50→17:11)
--- NOTE | 2024-02-19 16:51 | OPERATIVE REPORT ---
Operative Report - Other Other Information/Narrative: PROCEDURE DATE: Acute appendicitis PREOPERATIVE DIAGNOSIS: Karmen is a 78 year old female who has clinical, CT, and laboratory findings consistent with acute appendicitis with a visible fecalith. Karmen is being taken to the operating room for laparoscopic appendectomy, possible open appendectomy. POSTOPERATIVE DIAGNOSIS: Acute appendicitis without rupture NAME OF PROCEDURE: Laparoscopic appendectomy SURGEON: Og Rosales MD, FACS SHEARING MACHINE TENDER: Director Mobile ANESTHESIA: General endotracheal. ESTIMATED BLOOD LOSS: 5 mL. DRAINS: None SPECIMEN: Appendix COMPLICATIONS None FINDINGS: Acute inflammation of the appendix the base of which was normal but beyond the fecalith was dilated and encased in omentum. There was no rupture although the appendiceal wall surrounding the fecalith was ischemic. DESCRIPTION OF OPERATION: After consent for the procedure was obtained, the patient was brought to the operating room where in the supine position, general endotracheal anesthesia was administered. A surgical time-out was performed, indicating the patient and the procedure to be performed. The abdomen was prepped with alcohol-free chloroprep and draped in a sterile fashion. The subcutaneous tissue of each of the planned port sites was infiltrated with 1% Lidocaine with epinephrine in a 50/50 mix with 1/4 % Marcaine mixture. Pneumoperitoneum was achieved through a subumbilical incision using a Tangela cannula and an open technique. Under direct vision, a 5 mm muscle splitting, non-cutting port was placed in the right lower quadrant and an 12 mm muscle splitting, non-cutting port was placed in the left lower quadrant. Inspection revealed the above noted findings. Placing the patient in Trendelenburg position slightly rolled to the left allowed visualization of the appendix. The appendix was gently grasped with a ratcheted grasper and retracted superiorly and anteriorly. I then transected the mesoappendix with a harmonic scalpel and identified healthy tissue at the base of the appendix. The base of the appendix was stapled and transected flush with the cecum using an Endo-YASIR stapling device using gastrointestinal susana. The appendix was then brought out through the left lower quadrant port site incision using an EndoCatch device. Reinspection of the right lower quadrant revealed no evidence of bleeding or leakage from the previous dissection site. The right lower quadrant was irrigated with warm sterile saline. The irrigant was aspirated. A search was made for sponges, packs, instruments, and needles. None were found. The sponge, pack, instrument, and needle counts were relayed to me as being correct. The left lower quadrant port site was closed with a 2-0 Vicryl under direct vision using an endo-close device. The pneumoperitoneum then was slowly released and the intra-abdominal pressure lowered. For several minutes I observed the edge of the transected mesoappendix, the omentum, and the right lower quadrant port site and there was no oozing of blood. The pneumoperitoneum was completely released and the Tangela cannula removed. The subumbilical incision was closed with 2-0 Vicryl for the linea alba. The skin of each of the port sites was closed with interrupted 4-0 Monocryl in a subcuticular fashion with Steri-Strips to reinforce the epidermis. Dressings were placed. The patient tolerated the procedure well and was brought to the recovery room with stable vital signs.
[2024-02-19] MEDS ORDERED: SODIUM CHLORIDE FLUSH 0.9% 10 ML SYRINGE IVP PRN (17:02)
[2024-02-19] MEDS ORDERED: oxyCODONE 5 MG TABLET PO PRN (17:02)
[2024-02-19] MEDS: ceFAZolin (2G) 2 GM in SODIUM CHLORIDE 0.9% MINIBAG 100 ML IV SCH (17:59)
[2024-02-19] MEDS: ACETAMINOPHEN 325 MG TABLET PO SCH (18:02)
[2024-02-19] MEDS: GABAPENTIN 100 MG CAPSULE PO SCH (21:30)
[2024-02-19] MEDS: buPROPion SR 150 MG TABLET PO SCH (21:30)
[2024-02-20] MEDS: SODIUM CHLORIDE FLUSH 0.9% 10 ML SYRINGE IVP SCH (02:16)
[2024-02-20 05:02] LABS: BASOPHILS % (AUTO) 0.3 %; EOSINOPHILS # (AUTO) 0.2 10^3/uL (0.0-0.7); EOSINOPHILS % (AUTO) 1.6 %; HCT - HEMATOCRIT 26.2 % (37.0-47.0); HGB - HEMOGLOBIN 7.8 g/dL (12.0-16.0); LYMPHOCYTES # (AUTO) 1.6 10^3/uL (1.5-3.5); LYMPHOCYTES % (AUTO) 16.2 %; MEAN CORPUSCULAR HEMOGLOBIN 27.1 pg (27.0-31.0); MEAN CORPUSCULAR HGB CONC 29.8 g/dL (32.0-36.0); MEAN PLATELET VOLUME 9.7 fL (7.9-10.8); MONOCYTES # (AUTO) 0.9 10^3/uL (0.0-1.0); MONOCYTES % (AUTO) 9.3 %; NEUTROPHILS % (AUTO) 72.3 %; PLT - PLATELET COUNT 178 10^3/uL (130-450); RED BLOOD COUNT 2.88 10^6/uL (4.20-5.40); RED CELL DISTRIBUTION WIDTH 14.6 % (12.0-15.0); WHITE BLOOD COUNT 9.6 x10^3/uL (4.8-10.8)
[2024-02-20 05:44] LABS: CALCIUM 8.2 mg/dL (8.5-10.3); CREATININE 1.6 mg/dL (0.6-1.3); POTASSIUM 3.8 mmol/L (3.5-4.5)
[2024-02-20] MEDS: diphenhydrAMINE 25 MG CAPSULE PO PRN (05:57)
[2024-02-20] MEDS ORDERED: HYDROmorphone 0.5 MG/0.5 ML SYRINGE IVP PRN (07:07)
--- NOTE | 2024-02-20 07:07 | PROVIDER PROGRESS NOTE ---
Subjective - General Procedure Date: 02/19/24 Post Op Days: 1 Procedure Performed: Laparoscopic appendectomy - Review of Systems Wound/Incisions: positive: Healing well, Dressing dry and intact, No drainage General: positive: No symptoms HEENT: positive: No symptoms Pulmonary: positive: No symptoms Cardiovascular: positive: No symptoms Gastrointestinal: positive: No symptoms (Tolerating a diet) All Other Systems: positive: Reviewed and negative - Other Other Information/Narrative: Pain under good control; Has ambulated. Objective - Patient Data Vital Signs: Vital Signs x48h Temp Pulse Resp BP Pulse Ox 02/20/24 04:00 98.1 F 72 18 101/52 L 99 02/20/24 00:01 97.7 F 73 20 92/50 L 98 Weight: Weight 02/18/24 02/19/24 02/20/24 23:59 23:59 23:59 Weight (kg) 91.626 kg Intake & Output: Intake and Output Totals x24h 02/18/24 02/19/24 02/20/24 23:59 23:59 23:59 Intake Total 2400 Output Total 300 Balance 2400 -300 - Lab Results Lab Results: 02/20/24 04:46 02/20/24 04:46 Other Lab Results: Lab Results x24hrs 02/20/24 02/20/24 02/19/24 Range/Units 04:46 04:46 14:15 WBC 9.6 (4.8-10.8) x10^3/uL RBC 2.88 L (4.20-5.40) 10^6/uL Hgb 7.8 L (12.0-16.0) g/dL Hct 26.2 L (37.0-47.0) % MCV 91.0 (81.0-99.0) fL MCH 27.1 (27.0-31.0) pg MCHC 29.8 L (32.0-36.0) g/dL RDW 14.6 (12.0-15.0) % Plt Count 178 (130-450) 10^3/uL MPV 9.7 (7.9-10.8) fL Neut # (Auto) 7.0 H (1.5-6.6) 10^3/uL Lymph # (Auto) 1.6 (1.5-3.5) 10^3/uL [place] # (Auto) 0.9 (0.0-1.0) 10^3/uL Eos # (Auto) 0.2 (0.0-0.7) 10^3/uL Baso # (Auto) 0.0 (0.0-0.1) 10^3/uL Absolute Nucleated RBC 0.00 x10^3/uL Nucleated RBC % 0.0 /100WBC Sodium 137 (135-145) mmol/L Potassium 3.8 (3.5-4.5) mmol/L Chloride 109 (101-111) mmol/L Carbon Dioxide 24 (21-32) mmol/L Anion Gap 4.0 L (6-13) BUN 21 H (6-20) mg/dL Creatinine 1.6 H (0.6-1.3) mg/dL Estimated GFR (MDRD) 31 L (>89) Glucose 92 (74-104) mg/dL Calcium 8.2 L (8.5-10.3) mg/dL Total Bilirubin (0.2-1.0) mg/dL AST (10-42) IU/L ALT (10-60) IU/L Alkaline Phosphatase (42-121) IU/L Total Protein (6.4-8.9) g/dL Albumin (3.2-5.5) g/dL Globulin (2.1-4.2) g/dL Albumin/Globulin Ratio (1.0-2.2) Lipase (11-82) U/L Urine Color YELLOW Urine Clarity CLEAR (CLEAR) Urine pH 5.0 (5.0-7.5) PH Ur Specific [place] 1.015 (1.002-1.030) Urine Protein TRACE (NEGATIVE) mg/dL Urine Glucose (UA) NEGATIVE (NEGATIVE) mg/dL Urine Ketones NEGATIVE (NEGATIVE) mg/dL Urine Occult Blood NEGATIVE (NEGATIVE) Urine Nitrite NEGATIVE (NEGATIVE) Urine Bilirubin NEGATIVE (NEGATIVE) Urine Urobilinogen 0.2 (NORMAL) (NORMAL) E.U./dL Ur Leukocyte Esterase NEGATIVE (NEGATIVE) Ur Microscopic Review NOT INDICATED Urine Culture Comments NOT INDICATED Blood Type Antibody Screen 02/19/24 02/19/24 02/19/24 Range/Units 13:09 09:39 09:39 WBC 11.3 H (4.8-10.8) x10^3/uL RBC 3.34 L (4.20-5.40) 10^6/uL Hgb 9.0 L (12.0-16.0) g/dL Hct 29.8 L (37.0-47.0) % MCV 89.2 (81.0-99.0) fL MCH 26.9 L (27.0-31.0) pg MCHC 30.2 L (32.0-36.0) g/dL RDW 14.3 (12.0-15.0) % Plt Count 215 (130-450) 10^3/uL MPV 9.0 (7.9-10.8) fL Neut # (Auto) 9.2 H (1.5-6.6) 10^3/uL Lymph # (Auto) 0.7 L (1.5-3.5) 10^3/uL [place] # (Auto) 1.4 H (0.0-1.0) 10^3/uL Eos # (Auto) 0.0 (0.0-0.7) 10^3/uL Baso # (Auto) 0.0 (0.0-0.1) 10^3/uL Absolute Nucleated RBC 0.00 x10^3/uL Nucleated RBC % 0.0 /100WBC Sodium 135 (135-145) mmol/L Potassium 3.8 (3.5-4.5) mmol/L Chloride 105 (101-111) mmol/L Carbon Dioxide 24 (21-32) mmol/L Anion Gap 6.0 (6-13) BUN 21 H (6-20) mg/dL Creatinine 1.4 H (0.6-1.3) mg/dL Estimated GFR (MDRD) 37 L (>89) Glucose 111 H (74-104) mg/dL Calcium 8.8 (8.5-10.3) mg/dL Total Bilirubin 0.5 (0.2-1.0) mg/dL AST 10 (10-42) IU/L ALT 9 L (10-60) IU/L Alkaline Phosphatase 67 (42-121) IU/L Total Protein 6.5 (6.4-8.9) g/dL Albumin 3.8 (3.2-5.5) g/dL Globulin 2.7 (2.1-4.2) g/dL Albumin/Globulin Ratio 1.4 (1.0-2.2) Lipase 13 (11-82) U/L Urine Color Urine Clarity (CLEAR) Urine pH (5.0-7.5) PH Ur Specific [place] (1.002-1.030) Urine Protein (NEGATIVE) mg/dL Urine Glucose (UA) (NEGATIVE) mg/dL Urine Ketones (NEGATIVE) mg/dL Urine Occult Blood (NEGATIVE) Urine Nitrite (NEGATIVE) Urine Bilirubin (NEGATIVE) Urine Urobilinogen (NORMAL) E.U./dL Ur Leukocyte Esterase (NEGATIVE) Ur Microscopic Review Urine Culture Comments Blood Type AB POSITIVE Antibody Screen NEGATIVE - Current Medications Current Medications: Current Medications Generic Name Dose Route Start Last Admin Trade Name Freq PRN Reason Stop Dose Admin Acetaminophen 650 mg 02/19/24 18:00 02/20/24 05:38 Acetaminophen 325 Mg Tablet PO 650 mg Q6HR PHILL Administration Bupropion HCl 150 mg 02/19/24 21:00 02/19/24 21:30 Bupropion Sr 150 Mg Tablet PO 150 mg BID PHILL Administration Diphenhydramine HCl 50 mg 02/19/24 17:12 02/20/24 05:57 Diphenhydramine 25 Mg Capsule PO 50 mg Q12H PRN Administration Allergy Symptoms Gabapentin 100 mg 02/19/24 22:00 02/20/24 05:45 Gabapentin 100 Mg Capsule PO 100 mg TID PHILL Administration Sodium Chloride 10 ml 02/20/24 01:00 02/20/24 02:16 Sodium Chloride Flush 0.9% 10 Ml Syringe IVP 10 ml 0100,0900,1700 PHILL Administration - Physical Exam General Appearance: positive: No acute distress, Alert Eyes Bilateral: positive: Normal inspection ENT: positive: ENT inspection nml Neck: positive: Nml inspection Respiratory: positive: Chest non-tender, No respiratory distress, Breath sounds nml Cardiovascular: positive: Regular rate & rhythm, No murmur Abdomen: positive: Non-tender (Port sites clean and dry; Abdomen is soft and non-tender.) Skin: positive: Color nml, Warm Extremities: positive: Full ROM Impression/Plan - Problem List Problem List: Assessment: 1) POD # 1 laparoscopic appendectomy for advanced appendicitis. Progressing well 2) Post-op anemia - asymptomatic. No evidence of soft tissue bleeding but with her use of a DOAC I would like to monitor her H&H today to make certain she does not need a transfusion before discharge Plan: 1) Increase activity 2) H&H at 1100 3) Possibly home later this afternoon pending the results of #2 Gerhard Rosales MD, FACS General Surgery Service
[2024-02-20] MEDS: oxyCODONE 5 MG TABLET PO PRN (09:09)
[2024-02-20 11:09] LABS: HCT - HEMATOCRIT 28.3 % (37.0-47.0); HGB - HEMOGLOBIN 8.5 g/dL (12.0-16.0)
--- NOTE | 2024-02-20 12:42 | PROVIDER PROGRESS NOTE ---
Progress Note General Surgery Progress Note Patient comfortable; Tolerating a diet. Ambulatory. Her 11:00 H&H is back to normal. She is ready for discharge. Plan: Discharge to home; Start [facility]; surgery clinic 7-10 days. Gerhard Rosales MD, FACS General Surgery Service
[2024-02-20 12:44] VITALS: BP 117/61; O2SAT 95
--- NOTE | 2024-02-20 12:46 | DISCHARGE SUMMARY ---
"Discharge Summary Admit Date: 02/19/24 Discharge Date: 02/20/24 Discharging Provider: Connie Mcqueen Status: Attempt Resuscitation Condition at Discharge: Good Discharge Disposition: 01 Home, Self Care - DIAGNOSES Admission Diagnoses: Acute appendicitis Discharge Diagnoses with Status of Each Condition: Acute appendicitis - resolved - HPI History of Present Illness: Karmen is a 78 year old female who developed the onset of dull, non-radiating lower abdominal pain yesterday around 1500. The pain has persisted, is constant and associated with nausea without vomiting. She tried to eat last night but lost her appetite. She slept poorly because her cat like to sleep on her belly and this caused her discomfort. She had continued abdominal pain this morning and came to the ED where acute appendicitis was diagnosed. 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 Her last dose was last evening. She denies easy bruising, epistaxis, or rectal bleeding. - CONSULTS | PROCEDURES Consultations: None Procedures: 02/19/2024 - Laparoscopic appendectomy - HOSPITAL COURSE Hospital Course: Uncomplicated. She had no clinical or lab evidence of post-op bleeding. At the time of discharge, she was ambulatory, tolerating a diet, passing flatus, and her pain was under control with oral medication. Her port sites were clean and dry. - ALLERGIES Allergies/Adverse Reactions: Allergies Allergy/AdvReac Type Severity Reaction Status Date / Time codeine AdvReac Nausea Verified 02/19/24 08:46 - MEDICATIONS Home Medications: Ambulatory Orders Medication Instructions Recorded Confirmed Gabapentin 300 - 600 mg PO BID 09/08/15 02/19/24 Topiramate 25 - 75 mg PO BID 09/08/15 02/19/24 Vilazodone HCl [Viibryd] 40 mg PO DAILY 09/08/15 02/19/24 diphenhydrAMINE [Benadryl] 50 mg PO BID 03/11/20 02/19/24 Telmisartan 80 mg PO DAILY 02/12/23 02/19/24 buPROPion HCL [Bupropion Xl] 300 mg PO DAILY 02/12/23 02/19/24 Cholecalciferol [Vitamin D3] 25 mcg PO DAILY 02/13/23 02/19/24 Cyanocobalamin [Vitamin B-12] 1,000 mcg PO DAILY tab 02/13/23 02/19/24 Iron Bis-Glycinat/Vit C/FA/B12 1 cap PO DAILY #30 cap 03/03/23 02/19/24 [Gentle Iron 28 mg Capsule] Apixaban [Eliquis] 1 tab PO BID 02/19/24 02/19/24 Home Medications Other | Comments: Tylenol 650 mg orally 4 x a day for pain Start Eliquis this evening - PHYSICAL EXAM AT DISCHARGE General Appearance: positive: No acute distress Eyes Bilateral: positive: Normal inspection, PERRL ENT: positive: ENT inspection nml Neck: positive: Nml inspection, Trachea midline Respiratory: positive: Chest non-tender, No respiratory distress, Breath sounds nml Cardiovascular: positive: Regular rate & rhythm, No murmur Peripheral Pulses: positive: 2+ Abdomen: positive: Non-tender, Nml bowel sounds, No distention Skin: positive: Color nml, Warm Extremities: positive: Non-tender, Full ROM, Nml appearance Neurologic/Psychiatric: positive: Oriented x3 - LABS Result Diagrams: 02/20/24 11:03 02/20/24 04:46 - DIAGNOSTIC IMAGING Diagnostic Imaging Results: See rad report - QUALITY (Female Hip Fx Only) Was patient sent home on osteoporosis medication?: No - FOLLOW UP Follow Up: FU General Surgery Clinic in 7-10 days or sooner as needed - TIME SPENT Time Spent in Discharge (Minutes): 30"
--- NOTE | 2024-02-20 12:52 | Discharge Plan ---
Discharge Plan Problem Reviewed?: Yes Disposition: Home, Self Care Condition: Good Prescriptions: oxyCODONE [Roxicodone] 5 mg PO Q4HR PRN #7 tab PRN Reason: Moderate Pain (Level 4-6) Acetaminophen [Tylenol] 650 mg PO Q6HR #60 tab Diet: Regular Activity Restrictions: Activity as Tolerated Shower Restrictions: No Driving Restrictions: No (Don't drive while taking narcotics) Weight Bearing: Full Weight Instruction Topics: Appendectomy Laparoscopic Dc Additional Instructions or Follow Up instructions: general Surgery Clinic. Our nursing staff will call you and make an appointment No Smoking: If you smoke, Please STOP! Call for help. Follow-up with: Maye Díaz PA [Primary Care Provider] -
== END 2024-02-20 14:51 | disposition home or self-care (01) ==
LOC: ED 08:33 → SDS 13:37 → MS2 13:58 → SDS 02-20 14:51
PROVIDERS: ATTEND Surgery
PROC: 0DTJ4ZZ Resection of Appendix, Percutaneous Endoscopic Approach (ICD-10-PCS; principal; 2024-02-19 15:00)
DX: K35.80 Unspecified acute appendicitis (principal); N80.549 Endometriosis of the appendix, unspecified depth; K44.9 Diaphragmatic hernia without obstruction or gangrene; I10 Essential (primary) hypertension; G47.30 Sleep apnea, unspecified; Z86.718 Personal history of other venous thrombosis and embolism; Z79.01 Long term (current) use of anticoagulants
CPT/HCPCS: 36415; 44970; 74177; 80048; 80053; 81003; 83690; 85014; 85018; 85025; 86850; 86900; 86901; 93005; 96361; 96365; 96375; 99285; A9270; J0131; J1170; J7120; Q9967; 81001; 87086